=== PATIENT | female | born 1995 | race Caucasian/White ===

== ENCOUNTER 2022-04-11 03:26 | Emergency (ER) | payer MEDICAID, SELFPAY ==
[2022-04-11 03:39] VITALS: BP 107/69; PULSE 74; RESP 16; TEMP 36.4; O2SAT 98; BMI 18.6
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
== END 2022-04-11 05:00 | disposition home or self-care (01) ==
LOC: ED 04:53
PROVIDERS: Emergency Provider Family Medicine
DX: S39.012A Strain of muscle, fascia and tendon of lower back, initial encounter (principal)
CPT/HCPCS: 99283

== ENCOUNTER 2022-12-01 17:53 | Emergency (ER) | payer MEDICAID, SELFPAY ==
[2022-12-01 18:30] VITALS: BP 109/66; PULSE 97; RESP 20; TEMP 37.1; O2SAT 100; BMI 20.8
--- NOTE | 2022-12-01 19:09 | ED.GENADULT ---
HPI - General Adult General Chief complaint: Skin/Abscess/Foreign Body Stated complaint: Rash/Bruising on Legs Time Seen by Provider: 12/01/22 18:16 History of Present Illness HPI narrative: This 27-year-old female comes in reporting numerous bruising is on both legs that occurred about a week ago. She states that she does not typically bruise easily and does not report any injury event. 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 She denies having any other symptoms and states that she is not taking any new medications. She has numerous bruises on both legs but non on her upper extremities or trunk. Related Data Home Medications Medication Instructions Recorded Confirmed bupropion HCl 300 mg 24 hr tablet, 300 mg PO DAILY 04/11/22 12/01/22 extended release eucqaxswom-xioqdvjeyflef-ihmmgecu 1 cap PO Q6H PRN 04/11/22 12/01/22 50 mg-300 mg-40 mg capsule dextroamphetamine-amphetamine 20 20 mg PO DAILY 04/11/22 12/01/22 mg tablet dextroamphetamine-amphetamine ER 30 mg PO DAILY 04/11/22 12/01/22 30 mg 24hr capsule,extend release (Adderall XR) levothyroxine 50 mcg tablet 50 mcg PO DAILY 04/11/22 12/01/22 lamotrigine 200 mg tablet 200 mg PO DAILY 12/01/22 12/01/22 topiramate 200 mg tablet 200 mg PO DAILY 12/01/22 12/01/22 trazodone 50 mg tablet 50 mg PO DAILY PRN 12/01/22 12/01/22 Allergies Allergy/AdvReac Type Severity Reaction Status Date / Time amoxicillin Allergy Rash Verified 04/11/22 03:49 latex Allergy Rash Verified 04/11/22 03:49 Review of Systems Status of ROS: Reports: 10 or more systems reviewed and unremarkable except as noted in History and below Narrative: Constitutional: No fevers, no weight gain or loss. Eyes: No discharge. No vision changes. HENT: No congestion, no sore throat, no ear pain. Cardiovascular: No chest pain, no palpitations. Respiratory: No shortness of breath, no wheezes, no cough. Gastrointestinal: No abdominal pain, no vomiting, no diarrhea. Genitourinary: No dysuria, no hematuria. Musculoskeletal: Normal range of motion. Skin: No rashes, no pruritis. Bruising on her legs as described above. Neurological: No dizziness, weakness, sensory change, speech change. Endo/Heme/Allergies: No bruising or bleeding. No polydipsia. Pysch: no suicidality, no anxiety, no insomnia. All other systems reviewed and are negative. [facility] Medical History (Updated 12/01/22 @ 20:10 by Garrett Fierro MD) ADHD Anxiety Bipolar disorder Major depression Social History Smoking Status: Never smoker Do you use any of these nicotine containing products: Vaping Products Second hand tobacco smoke exposure: No How often do you have a drink containing alcohol: 2-3 times a week How many standard drinks containing alcohol do you have on a typical day: 3 or 4 How often do you have six or more drinks on one occasion: Monthly AUDIT-C Alcohol total score: 6 Non-prescribed substance use: former substance user service: No Exam Narrative: Exam Narrative: Constitutional: Well-developed, well-nourished, no acute distress. HEENT: Normocephalic, atraumatic. Neck: Normal range of motion. Nontender. Supple. Heart: Regular. No murmurs. Normal rate. Intact distal pulses. Lungs: Clear to auscultation. No chest discomfort. No wheezes, rhonchi, or rales. Abdomen: Normal bowel sounds. Nontender. No rebound tenderness. Genitalia: Deferred. Back: No midline tenderness. Normal range of motion. Extremities: Normal range of motion. 4-5 bruises on each leg both in upper leg and lower leg. Skin: Intact. No rash. Warm. No erythema or pallor. Neurologic: No altered sensation. No weakness. Alert and oriented. Psychiatric: No suicidality. No anxiety or depression. No insomnia. Nursing notes and vitals signs are reviewed. Const: Vital Signs, click to edit/add: Vital Signs - 24 hr 12/01/22 18:30 Temperature 98.8 F Pulse Rate [Pulse Oximeter] 97 Respiratory Rate 20 Blood Pressure [Ri ght Upper Arm] 109/66 Pulse Oximetry 100 Oxygen Delivery Me thod Room Air Course Vital Signs Vital signs: Initial Vital Signs Temperature 98.8 F 12/01/22 18:30 Temperature Source Temporal Artery Scan 12/01/22 18:30 Pulse Rate 97 12/01/22 18:30 Respiratory Rate 20 12/01/22 18:30 Blood Pressure 109/66 12/01/22 18:30 Blood Pressure Mean 80 12/01/22 18:30 Blood Pressure Position Sitting 12/01/22 18:30 Pulse Oximetry 100 12/01/22 18:30 Oxygen Delivery Method 12/01/22 18:30 Vital Signs Temperature 98.8 F 12/01/22 18:30 Pulse Rate 97 12/01/22 18:30 Respiratory Rate 20 12/01/22 18:30 Blood Pressure 109/66 12/01/22 18:30 Pulse Oximetry 100 12/01/22 18:30 Oxygen Delivery Method 12/01/22 18:30 Temperature 98.8 F 12/01/22 18:30 Pulse Rate 97 12/01/22 18:30 Respiratory Rate 20 12/01/22 18:30 Blood Pressure 109/66 12/01/22 18:30 Pulse Oximetry 100 12/01/22 18:30 Oxygen Delivery Method 12/01/22 18:30 Medical Decision Making MDM Narrative Medical decision making narrative: This patient comes in with bruising on both legs despite no particular injury event that she knows of to cause these findings. She feels normal otherwise. She is not on any new medications. Her vital signs are normal and her exam is otherwise normal. Lab results are acquired and show normal findings including normal hemoglobin, normal white blood cell count, normal INR and liver studies. This patient is not showing any signs of her worrisome of some underlying disease process triggering these bruises. More likely she did sustain some injury without knowing it and her body appears to be healing normally. At the time of discharge the patient appears safe for outpatient management. The treatment plan is reviewed along with written and verbal return precautions. Reasons to return and the importance of close followup were also reviewed. Lab Data Labs: Lab Results 12/01/22 12/01/22 12/01/22 Range/Units 19:24 19:24 19:24 WBC 8.56 (4.50-11.00) K/uL RBC 4.34 (4.00-5.20) m/uL Hgb 13.7 (12.0-16.0) gm/dL Hct 39.4 (33.0-51.0) % MCV 91 (80-100) fL MCH 32 (26-34) pg MCHC 35 (32-36) gm/dL RDW Coeff of Jasen 11.8 (11.5-15.5) % Plt Count 282 (140-440) K/uL Neut % (Auto) 59.0 (42.0-72.0) % Lymph % (Auto) 22.0 (20-44) % Mcdowell % (Auto) 8.4 (0.0-11.0) % Eos % (Auto) 9.9 H (0.0-7.0) % Baso % (Auto) 0.6 (0.0-3.0) % Neut # (Auto) 5.05 (1.7-7.0) K/uL Lymph # (Auto) 1.88 (0.90-2.90) K/uL Mcdowell # (Auto) 0.70 (0.00-0.90) K/UL Eos # (Auto) 0.80 H (0.00-0.50) K/uL Baso # (Auto) 0.05 (0.00-0.30) K/uL INR 1.03 (0.91-1.10) Sodium 140 (135-149) mmol/L Potassium 3.8 (3.6-5.1) mmol/L Chloride 107 (96-114) mmol/L Carbon Dioxide 22 (20-32) mmol/L BUN 14 (5-24) mg/dL Creatinine 0.6 (0.5-1.5) mg/dL Estimated Creat Clear 128.29 Estimated GFR 128 ml/min Glucose 68 (60-115) mg/dL Calcium 9.2 (8.4-10.6) mg/dL Total Bilirubin 0.4 (0.1-1.5) mg/dL Direct Bilirubin 0.2 (0.0-0.5) mg/dL AST 26 (12-35) U/L ALT 23 (4-35) U/L Alkaline Phosphatase 54 (40-150) U/L C-Reactive Protein < 0.5 L (0.5-1.0) mg/dL Total Protein 7.1 (6.0-8.3) g/dL Albumin 4.4 (3.3-5.0) g/dL Discharge Plan Discharge Clinical Impression: Multiple bruises Patient Disposition: Home, Self-Care Condition: Stable Additional Instructions: Continue current plans. Follow up with MD or return if recurrent or worsening symptoms happen. Prescriptions: No Action levothyroxine 50 mcg tablet 50 mcg PO DAILY Label Comments: TAKE ONE TABLET BY MOUTH ONE TIME DAILY dextroamphetamine-amphetamine [Adderall XR] 30 mg capsule,extended release 24hr 30 mg PO DAILY Label Comments: Take 1 Capsule by mouth every morning for 30 days. Should be given by noon. Swallow whole or open,sprinkle contents on food bupropion HCl 300 mg tablet extended release 24 hr 300 mg PO DAILY Label Comments: TAKE ONE TABLET BY MOUTH ONE TIME DAILY cesjhvjpqa-jwzbzrdmfezjz-brwu 50-300-40 mg capsule 1 cap PO Q6H PRN Label Comments: TAKE ONE CAPSULE BY MOUTH EVERY SIX HOURS NEEDED FOR MIGRAINE dextroamphetamine-amphetamine 20 mg tablet 20 mg PO DAILY lamotrigine 200 mg tablet 200 mg PO DAILY Label Comments: Take 1 Tablet by mouth one time a day. topiramate 200 mg tablet 200 mg PO DAILY Label Comments: Take 1 Tablet by mouth at bedtime. Do not crush. trazodone 50 mg tablet 50 mg PO DAILY PRN Label Comments: Take 1 Tablet by mouth at bedtime. Follow Up/Referrals: Provider,Not a Local [Primary Care Provider] - Stand Alone Forms: [employer] Info Instructions
[2022-12-01 19:30] LABS: Basophils Absolute Auto 0.05 K/uL (0.00-0.30); Basophils Percent Auto 0.6 % (0.0-3.0); Eosinophils Percent Auto 9.9 % (0.0-7.0); Hematocrit 39.4 % (33.0-51.0); Hemoglobin* 13.7 gm/dL (12.0-16.0); Immature Granulocytes Abs Auto 0.01 K/uL (0.00-0.30); Immature Granulocytes Pct Auto 0.1 %; Lymphocytes Absolute Auto 1.88 K/uL (0.90-2.90); Mean Corpuscular HGB Conc 35 gm/dL (32-36); Mean Corpuscular Hemoglobin 32 pg (26-34); Mean Corpuscular Volume 91 fL (80-100); Monocytes Percent Auto 8.4 % (0.0-11.0); Neutrophils Absolute Auto 5.05 K/uL (1.7-7.0); Platelet Count* 282 K/uL (140-440); RDW Coefficient of Variation % 11.8 % (11.5-15.5); Red Blood Count 4.34 m/uL (4.00-5.20); Slide Review Reflex No; White Blood Count* 8.56 K/uL (4.50-11.00)
[2022-12-01 19:50] LABS: Albumin* 4.4 g/dL (3.3-5.0); Chloride* 107 mmol/L (96-114); INR 1.03 (0.91-1.10); Prothrombin Time 14.1 Seconds
[2022-12-01 19:51] LABS: Potassium* 3.8 mmol/L (3.6-5.1); Sodium* 140 mmol/L (135-149)
[2022-12-01 19:53] LABS: Creatinine* 0.6 mg/dL (0.5-1.5); Est. Creatinine Clearance* 128.29; Estimated Glomerular Filt Rate 128 ml/min
[2022-12-01 19:54] LABS: Alanine Aminotransferase* 23 U/L (4-35); Alkaline Phosphatase* 54 U/L (40-150); Aspartate Amino Transferase* 26 U/L (12-35); Bilirubin Direct* 0.2 mg/dL (0.0-0.5); Bilirubin Total* 0.4 mg/dL (0.1-1.5); Blood Urea Nitrogen* 14 mg/dL (5-24); Calcium* 9.2 mg/dL (8.4-10.6); Carbon Dioxide* 22 mmol/L (20-32); Glucose* 68 mg/dL (60-115); Total Protein* 7.1 g/dL (6.0-8.3)
[2022-12-01 19:57] LABS: C Reactive Protein* < 0.5 mg/dL (0.5-1.0)
== END 2022-12-01 20:30 | disposition home or self-care (01) ==
PROVIDERS: Emergency Provider Emergency Medicine Emergency Medical Services
DX: T14.8XXA Other injury of unspecified body region, initial encounter (principal)
CPT/HCPCS: 36415; 80048; 80076; 85025; 85610; 86140; 99283; 99284

== ENCOUNTER 2022-12-04 21:10 | Emergency (ER) | payer MEDICAID, SELFPAY ==
[2022-12-04 21:19] VITALS: BP 119/74; PULSE 91; RESP 18; TEMP 37.1; O2SAT 100; BMI 20.8
--- NOTE | 2022-12-04 22:36 | ED_ITS ---
HPI - General Adult General Chief complaint: Unspecified Complaint, Adult Stated complaint: bruises/hives all over w/out known cause Time Seen by Provider: 12/04/22 21:19 History of Present Illness HPI narrative: This 27-year-old female returns to the emergency department here because of bruising on her lower extremities. She was seen by me 3 days ago because of these same bruises but comes in today because another 1 is appeared on her right buttock. She does not have any description of an injury event. She does have some pruritus and has been scratching her legs. When she was seen by me 3 days ago I did draw labs and these returned with normal results. The patient states that she has been taking Benadryl without any relief. She does not report any unilateral leg swelling or shortness of breath. She does not have any chest pain. She has not had any fevers or dysuria symptoms. Related Data Home Medications Medication Instructions Recorded Confirmed bupropion HCl 300 mg 24 hr tablet, 300 mg PO DAILY 04/11/22 12/01/22 extended release prcwwxwdza-vlvmwyezhdcrn-zekdhsrz 1 cap PO Q6H PRN 04/11/22 12/01/22 50 mg-300 mg-40 mg capsule dextroamphetamine-amphetamine 20 20 mg PO DAILY 04/11/22 12/01/22 mg tablet dextroamphetamine-amphetamine ER 30 mg PO DAILY 04/11/22 12/01/22 30 mg 24hr capsule,extend release (Adderall XR) levothyroxine 50 mcg tablet 50 mcg PO DAILY 04/11/22 12/01/22 lamotrigine 200 mg tablet 200 mg PO DAILY 12/01/22 12/01/22 topiramate 200 mg tablet 200 mg PO DAILY 12/01/22 12/01/22 trazodone 50 mg tablet 50 mg PO DAILY PRN 12/01/22 12/01/22 Allergies Allergy/AdvReac Type Severity Reaction Status Date / Time amoxicillin Allergy Rash Verified 04/11/22 03:49 latex Allergy Rash Verified 04/11/22 03:49 Review of Systems Status of ROS: Reports: 10 or more systems reviewed and unremarkable except as noted in History and below Narrative: Constitutional: No fevers, no weight gain or loss. Eyes: No discharge. No vision changes. HENT: No congestion, no sore throat, no ear pain. Cardiovascular: No chest pain, no palpitations. Respiratory: No shortness of breath, no wheezes, no cough. Gastrointestinal: No abdominal pain, no vomiting, no diarrhea. Genitourinary: No dysuria, no hematuria. Musculoskeletal: Normal range of motion. Skin: No rashes. She has bruising on various spots of her lower extremities and reports pruritus. Neurological: No dizziness, weakness, sensory change, speech change. Endo/Heme/Allergies: No bruising or bleeding. No polydipsia. Pysch: no suicidality, no anxiety, no insomnia. All other systems reviewed and are negative. [facility] Medical History (Updated 12/04/22 @ 22:41 by Garrett Fierro MD) ADHD Anxiety Bipolar disorder Major depression Social History Smoking Status: Never smoker Do you use any of these nicotine containing products: Vaping Products Second hand tobacco smoke exposure: No How often do you have a drink containing alcohol: 2-3 times a week How many standard drinks containing alcohol do you have on a typical day: 3 or 4 How often do you have six or more drinks on one occasion: Monthly AUDIT-C Alcohol total score: 6 Non-prescribed substance use: former substance user service: No Exam Narrative: Exam Narrative: Constitutional: Well-developed, well-nourished, no acute distress. HEENT: Normocephalic, atraumatic. Neck: Normal range of motion. Nontender. Supple. Heart: Regular. No murmurs. Normal rate. Intact distal pulses. Lungs: Clear to auscultation. No chest discomfort. No wheezes, rhonchi, or rales. Abdomen: Normal bowel sounds. Nontender. No rebound tenderness. Genitalia: Deferred. Back: No midline tenderness. Normal range of motion. Extremities: Normal range of motion. Scattered bruising on both lower extremities and 1 on her right buttock. Most of these are in a significant process of healing. There is no sign of new injury. Skin: Intact. No rash. Warm. No erythema or pallor. Neurologic: No altered sensation. No weakness. Alert and oriented. Psychiatric: No suicidality. No anxiety or depression. No insomnia. Nursing notes and vitals signs are reviewed. Const: Vital Signs, click to edit/add: Vital Signs - 24 hr 12/04/22 21:19 Temperature 98.8 F Pulse Rate [Left P ulse Oximeter] 91 Respiratory Rate 18 Blood Pressure [Le ft Upper Arm] 119/74 Pulse Oximetry 100 Oxygen Delivery Me thod Room Air Course Vital Signs Vital signs: Initial Vital Signs Temperature 98.8 F 12/04/22 21:19 Temperature Source Temporal Artery Scan 12/04/22 21:19 Pulse Rate 91 12/04/22 21:19 Respiratory Rate 18 12/04/22 21:19 Blood Pressure 119/74 12/04/22 21:19 Blood Pressure Mean 89 12/04/22 21:19 Blood Pressure Position Sitting 12/04/22 21:19 Pulse Oximetry 100 12/04/22 21:19 Oxygen Delivery Method 12/04/22 21:19 Vital Signs Temperature 98.8 F 12/04/22 21:19 Pulse Rate 91 12/04/22 21:19 Respiratory Rate 18 12/04/22 21:19 Blood Pressure 119/74 12/04/22 21:19 Pulse Oximetry 100 12/04/22 21:19 Oxygen Delivery Method 12/04/22 21:19 Temperature 98.8 F 12/04/22 21:19 Pulse Rate 91 12/04/22 21:19 Respiratory Rate 18 12/04/22 21:19 Blood Pressure 119/74 12/04/22 21:19 Pulse Oximetry 100 12/04/22 21:19 Oxygen Delivery Method 12/04/22 21:19 Medical Decision Making MDM Narrative Medical decision making narrative: This patient comes in again with concern about bruising on her legs. The bruises were seen by me 3 days ago and appear to be the same except for a normal progression of healing. There is a bruise on her right buttock that may be new or. The patient has some anxiety about why these are occurring. I did offer to check lab and imaging studies but she declined these. I did recommend that she use [place] for pruritus. She is agreeable with this plan. She did receive an oral dose of Benadryl 50 mg. Discharge Plan Discharge Clinical Impression: Pruritus, Multiple bruises Patient Disposition: Home, Self-Care Condition: Unchanged Additional Instructions: Take fexofenadine as directed and needed. Follow up with MD or return if worsening. Prescriptions: No Action levothyroxine 50 mcg tablet 50 mcg PO DAILY Label Comments: TAKE ONE TABLET BY MOUTH ONE TIME DAILY dextroamphetamine-amphetamine [Adderall XR] 30 mg capsule,extended release 24hr 30 mg PO DAILY Label Comments: Take 1 Capsule by mouth every morning for 30 days. Should be given by noon. Swallow whole or open,sprinkle contents on food bupropion HCl 300 mg tablet extended release 24 hr 300 mg PO DAILY Label Comments: TAKE ONE TABLET BY MOUTH ONE TIME DAILY vucfuapltn-wlgjxngjdqurb-kshh 50-300-40 mg capsule 1 cap PO Q6H PRN Label Comments: TAKE ONE CAPSULE BY MOUTH EVERY SIX HOURS NEEDED FOR MIGRAINE dextroamphetamine-amphetamine 20 mg tablet 20 mg PO DAILY lamotrigine 200 mg tablet 200 mg PO DAILY Label Comments: Take 1 Tablet by mouth one time a day. topiramate 200 mg tablet 200 mg PO DAILY Label Comments: Take 1 Tablet by mouth at bedtime. Do not crush. trazodone 50 mg tablet 50 mg PO DAILY PRN Label Comments: Take 1 Tablet by mouth at bedtime. Follow Up/Referrals: Provider,Not a Local [Primary Care Provider] - Stand Alone Forms: [facility] Info Instructions
[2022-12-04] MEDS: diphenhydrAMINE 25 MG CAPSULE 50 MG PO (22:38)
== END 2022-12-04 22:44 | disposition home or self-care (01) ==
PROVIDERS: Emergency Provider Emergency Medicine Emergency Medical Services
DX: L29.9 Pruritus, unspecified (principal); S30.0XXA Contusion of lower back and pelvis, initial encounter; S80.10XA Contusion of unspecified lower leg, initial encounter
CPT/HCPCS: 99283; 99284; A9270

== ENCOUNTER 2022-12-15 19:22 | Emergency (ER) | payer MEDICAID, SELFPAY ==
[2022-12-15] VITALS (14 sets, daily range): BP systolic 121–143; BP diastolic 74–113; PULSE 84–99; RESP 16–18; TEMP 36.7; O2SAT 99–100; BMI 20.8
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
[2022-12-15] MEDS: KETOROLAC 30 MG/ML inj IM (21:05)
== END 2022-12-15 21:10 | disposition home or self-care (01) ==
PROVIDERS: Emergency Provider Emergency Medicine
DX: M54.2 Cervicalgia (principal); V86.62XA Passenger of snowmobile injured in nontraffic accident, initial encounter
CPT/HCPCS: 70450; 72125; 94761; 96372; 99283; 99284; 99291; J1885

== ENCOUNTER 2023-12-26 04:10 | Emergency (ER) | payer MEDICAID, SELFPAY ==
[2023-12-26 04:27] VITALS: BP 124/104; PULSE 112; RESP 16; TEMP 36.5; O2SAT 95; BMI 23.3
[2023-12-26] MEDS: KETOROLAC 15 MG/ML inj IVP (04:50)
[2023-12-26] MEDS: 0.9 % SODIUM CHLORIDE 1000 ml 1,000 ML IV (04:50)
[2023-12-26] MEDS: ONDANSETRON 2 MG/ML inj 4 MG IVP (04:50)
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
[2023-12-26 05:07] LABS: Strep A DNA Probe* NOT DETECTED (Not Detectd)
[2023-12-26 05:19] LABS: PCR FLU A Negative PCR FLU A (Negative); PCR FLU B Negative PCR FLU B (Negative); PCR RSV Negative PCR RSV (Negative); SARS PCR* Negative SARS-CoV-2 (Negative)
== END 2023-12-26 06:01 | disposition home or self-care (01) ==
PROVIDERS: Emergency Provider Family Medicine
DX: K52.9 Noninfective gastroenteritis and colitis, unspecified (principal)
CPT/HCPCS: 87631; 87651; 96374; 96375; 99283; 99284; J1885; J2405; J7030

== ENCOUNTER 2024-01-06 12:58 | Outpatient (CLI) | payer MEDICAID, SELFPAY ==
--- NOTE | 2024-01-06 13:00 | CT_ITS ---
Patient: FADIA RODRIGUES Facility:?[facility] Patient ID:?[id number] Site Patient ID:?[id number]. Site :?[id number] Study:?CT-Sinus WITHOUT-01/06/2024 1:28:17 PM Ordering Physician:?DR. MORALES Final Report: INDICATION: Chronic sinusitis. TECHNIQUE: Noncontrast CT images of the paranasal sinuses. COMPARISON: None. FINDINGS: No air-fluid levels to suggest acute sinusitis. Minimal mucosal thickening in the maxillary sinuses. The ethmoid infundibula are widely patent. The frontal sinuses and frontal recesses are clear. Mild opacification of the ethmoid air cells. The sphenoid sinuses and sphenoethmoidal recesses are clear. Minimal sinusoidal nasal septal deviation. No nasal cavity masses. The mastoid air cells are clear. IMPRESSION: Mild opacification of the ethmoid air cells and minimal mucosal thickening in the maxillary sinuses. The paranasal sinuses are otherwise clear. No air-fluid levels to suggest acute sinusitis. Please note that all CT scans at this facility use dose modulation, iterative reconstruction, and/or weight-based dosing when appropriate to reduce radiation dose to as low as reasonably achievable. Dictated by Alvin Pierre MD @ 01/06/2024 3:00:52 PM Signed by:?Alvin Pierre MD @01/06/2024 3:00:52 PM (Electronic Signature)
== END 2024-01-06 12:59 | disposition home or self-care (01) ==
LOC: CT 13:00
PROVIDERS: Visit Provider Otolaryngology
DX: J32.9 Chronic sinusitis, unspecified (principal); J32.0 Chronic maxillary sinusitis
CPT/HCPCS: 70486

== ENCOUNTER 2024-01-17 08:55 | Day surgery (SDC) | payer MEDICAID, SELFPAY ==
[2024-01-17] VITALS (13 sets, daily range): BP systolic 123–143; BP diastolic 80–104; PULSE 58–113; RESP 16–18; TEMP 36.2–37.1; O2SAT 96–100; BMI 23.4
[2024-01-17 09:14] LABS: Ur HCG Qualitative* Negative (Negative)
[2024-01-17] MEDS: LACTATED RINGERS 1000 ML 1,000 ML 100 ML IV (09:52)
[2024-01-17] MEDS: SODIUM CHLORIDE 0.9 % (FLUSH) 10 ML SYRINGE IVF (09:52)
[2024-01-17] MEDS: OXYMETAZOLINE 0.05% NASAL SPRAY 2 SPRAY NOSTRIL-B (10:20)
--- NOTE | 2024-01-17 10:23 | SUR.PREOP ---
Pt requesting jewelry stay in for surgery. Pt educated on complications. Pt verbalized understanding, reveiwed form and signed. Dr. Michaels aware.
[2024-01-17] MEDS: BUPIVACAINE 0.5%/EPINEPHRINE 0.9 MG (30.9 ML) INJECTION (10:30)
[2024-01-17] MEDS: AYR SALINE NASAL GEL 1 APPLIC NOSTRIL-B (11:15)
[2024-01-17] MEDS: COCAINE HCL 4 % 4 ML SOLUTION NOSTRIL-B (11:16)
[2024-01-17] MEDS: METOCLOPRAMIDE HCL 5 MG/ML INJ 10 MG IVP (11:24)
[2024-01-17] MEDS: MUPIROCIN 1 GM PACKET 1 APPLIC TOPICAL (11:25)
--- NOTE | 2024-01-17 11:51 | W.ANESCHARGE ---
Anesthesia Charges Start Date/Time Anesthesia Start Date: 01/17/24 Anesthesia Start Time: 10:53 Stop Date/Time Anesthesia Stop Date: 01/17/24 Anesthesia Stop Time: 11:49
[2024-01-17] MEDS: HYDROmorphone 0.5 mg/0.5 ml inj IVP ×2 (11:58→12:09)
--- NOTE | 2024-01-17 12:15 | P.ENTPROC_ITS ---
Procedure Note Date of procedure: 01/17/24 Procedure: Preoperative diagnosis recurrent strep tonsillitis, guttate psoriasis, nasal obstruction, deviated septum, bilateral middle turbinate fidelina bullosa, nasal headache Postoperative diagnosis same Procedure tonsillectomy, nasal septoplasty, endoscopic partial resection bilateral middle turbinate fidelina bullosa, endoscopic partial resection bilateral inferior turbinates Under general trach anesthesia patient was prepped and draped usual fashion. The nose was decongested with pledgets. McIvor mouth gag was inserted the tongue retracted forward. There was no adenoid pad noted. The right and left tonsil removed with a combination of needlepoint and bipolar cautery. Meticulous hemostasis was achieved with suction cautery. After regarding an gloving attention was turned to the nose. The nose was injected. A right hemitransfixion incision was made left anterior and posterior tunnels were created. Incision was made through the cartilage with a [place] dissector anterior to the bone and then a right posterior tunnel created. The posterior deflected portions of septal bone were resected and a large piece was trimmed and returned to the posterior intraseptal space. A stab incision was made in the anterior of the right inferior turbinate a tunnel created with a [place] dissector. The fidelina bone was outfractured and a conservative anterior submucous resection performed. The Coblation was used for hemostasis and to cauterize along the inferior 10%. This was repeated on the left side in identical fashion. Remainder procedure was done with the available assistance of a 0 degree endoscope. The right middle turbinate fidelina was infractured at the hollow portion and the turbinate crushed with the [place] forceps. This was repeated on the left side in identical fashion. The hemitransfixion was closed with 2 4- 0 chromic sutures and silastic stents secured with 3-0 nylon. A Merocel pack coated in Bactroban was placed in each side of the nose. On the left side I also placed a positive pack or dissolvable pack. Patient procedure well was taken recovery in satisfactory condition blood loss during procedure was less than 20 mL. Surgeon: René Michaels MD
[2024-01-17] MEDS: ACETAMINOPHEN 160 MG/5 ML CUP 320 MG PO (12:40)
[2024-01-17] MEDS: IBUPROFEN 100 MG/5 ML SUSP 200 MG PO (13:29)
== END 2024-01-17 13:49 | disposition home or self-care (01) ==
LOC: OR 08:56
PROVIDERS: Nurse Anesthetist, Certified Registered; Visit Provider Otolaryngology
PROC: (CPT 31231; principal; 2024-01-17 10:45)
DX: J03.01 Acute recurrent streptococcal tonsillitis (principal); J34.2 Deviated nasal septum; R51.9 Headache, unspecified; L40.4 Guttate psoriasis; J34.89 Other specified disorders of nose and nasal sinuses
CPT/HCPCS: 42821; 30520; 30140; 31240; 00170; 81025; 88304; A9270; J0330; J1100; J1170; J2250; J2405; J2704; J2765; J3010; J7120

== ENCOUNTER 2024-01-19 18:27 | Emergency (ER) | payer MEDICAID, SELFPAY ==
[2024-01-19 18:32] VITALS: BP 128/79; PULSE 84; RESP 15; TEMP 37.1; O2SAT 97; BMI 24.1
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
[2024-01-19] MEDS: ONDANSETRON 2 MG/ML inj 4 MG IVP (19:58)
[2024-01-19] MEDS: 0.9 % SODIUM CHLORIDE 1000 ml 1,000 ML IV ×2 (19:59→21:05)
[2024-01-19] MEDS: MORPHINE 4 MG/ML INJ IVP (19:59)
[2024-01-19 20:04] VITALS: O2SAT 97
[2024-01-19] MEDS: dexAMETHasone 10 MG/ML inj IVP (20:04)
[2024-01-19 20:06] LABS: Basophils Absolute Auto 0.03 K/uL (0.00-0.30); Basophils Percent Auto 0.3 % (0.0-3.0); Eosinophils Absolute Auto 0.16 K/uL (0.00-0.50); Eosinophils Percent Auto 1.6 % (0.0-7.0); Hematocrit 38.8 % (33.0-51.0); Hemoglobin* 13.1 gm/dL (12.0-16.0); Immature Granulocytes Abs Auto 0.01 K/uL (0.00-0.30); Immature Granulocytes Pct Auto 0.1 %; Lymphocytes Percent Auto 12.8 % (20-44); Mean Corpuscular HGB Conc 34 gm/dL (32-36); Mean Corpuscular Hemoglobin 32 pg (26-34); Mean Corpuscular Volume 94 fL (80-100); Monocytes Percent Auto 8.7 % (0.0-11.0); Neutrophils Percent Auto 76.5 % (42.0-72.0); Platelet Count* 268 K/uL (140-440); RDW Coefficient of Variation % 11.8 % (11.5-15.5); Red Blood Count 4.12 m/uL (4.00-5.20); White Blood Count* 9.88 K/uL (4.50-11.00)
[2024-01-19 20:09] LABS: Slide Review Reflex No
[2024-01-19 20:19] LABS: Chloride* 102 mmol/L (96-114); Potassium* 3.9 mmol/L (3.6-5.1); Sodium* 136 mmol/L (135-149)
[2024-01-19 20:22] LABS: Anion Gap 8 mEq/L (7-15); Blood Urea Nitrogen* 8 mg/dL (5-24); Calcium* 9.3 mg/dL (8.4-10.6); Carbon Dioxide* 26 mmol/L (20-32); Creatinine* 0.5 mg/dL (0.5-1.5); Est. Creatinine Clearance* 153.43; Estimated Glomerular Filt Rate 133 ml/min; Glucose* 109 mg/dL (60-115)
[2024-01-19 20:27] LABS: Ethanol* < 0.01 % (0.01-0.03)
--- OUTSIDE RECORDS SUMMARY | 2024-01-19 20:53 | XMS_ITS | Encounter Summary ---
Author Name Unknown Organization [facility] [employer] [facility] Address [address] [address] Phone Care Team Providers Care Dry Cleaning Supervisor Name Role Phone Unavailable Primary Care Provider Unavailabl e Reason for Visit * Reason Onset Date Comments Refill Request 12/13/2023 Encounter Details Date Type Department Care Team (Late st Contact Info) Description 12/13/2023 Refill [facility] [address] [place] [phone] Lorelei Cage RN Refill Request Social History Tobacco Use Types Packs/Day Years Used Date Smoking Tobacco: Passive Smo ke Exposure - Never Smoker Smokeless Tobacco: Never Alcohol Use Standard Drinks/Week Comments Yes 0 (1 standard drink = 0.6 oz pur e alcohol) PHQ-2 Answer Date Recorded PHQ-2 Total 0 06/11/2023 Education Answer Date Recorded What is the highest level of school you have completed or the highest degree you have received? Associate degree: academic program 08/10/2021 Sex and Gender Information Value Date Recorded Sex Assigned at Not on file Gender Identity Not on file Sexual Orientation Not on file Job Start Date Occupation Industry Not on file Not on file Not on file documented as of this encounter Functional Status Functional Status Response Date of Assess ment Patient's Vision Adequate to Safely Complete Daily Activities Yes 07/09/2020 Patient's Memory Adequate to Safely Complete Daily Activities Yes 07/09/2020 Cognitive Status Response Date of Assessm ent Patient's Judgment Adequate to Safely Complete Daily Activities Yes 07/09/2020 documented as of this encounter Ordered Prescriptions Prescription Sig Dispensed Refills Start Date End Da te Adderall XR 30 MG 24 hour capsuleIndications:Atten tion deficit hyperactivity disorder (ADHD), unspecified ADHD type Take 1 Capsule by mouth every morning for 30 days. Should be given by noon. Swallow whole or open,sprinkle contents on food 30 Capsule 0 12/16/2023 12/23/2023 amphetamine-dextroamphet amine (Adderall) 20 MG tabletIndications:Attent ion deficit hyperactivity disorder (ADHD), unspecified ADHD type Take 1 Tablet by mouth one time a day at noon. To avoid insomnia, last daily dose should be taken no less than 6 hours before bed. 30 Tablet 0 12/16/2023 12/23/2023 documented in this encounter Miscellaneous Notes * Telephone Encounter - Lorelei Cage RN - 12/16/2023 3:26 PM CST Printed scripts were mailed to the patient's home address by MARIJA Walters. RT SPECIALIST * Telephone Encounter - Lorelei Cage RN - 12/13/2023 4:56 PM CST Medication refill received via fax. Medication found on medication list and pended. Pharmacy selected: Yes Additional comments from pharmacy: With e-scripts down, paper copy will need to be provided to patient and/or mailed to Pharmacy. Routing to nursing for review. 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 Last Date Dispensed: 11/16/23 on both Quantity: #30 on both Days Supply: #30 on both Last Med Check: 06/11/23 DOA testin06/11/23 RT SPECIALIST documented in this encounter Plan of Treatment Not on file documented as of this encounter Visit Diagnoses Diagnosis Attention deficit hyperactivity disorder (ADHD), unspecified ADHD type documented in this encounter Discontinued Medications Medication Sig Discontinue Reason Start Date End Da te Adderall XR 30 MG 24 hour capsuleIndications:Attent ion deficit hyperactivity disorder (ADHD), unspecified ADHD type Take 1 Capsule by mouth every morning for 30 days. Should be given by noon. Swallow whole or open,sprinkle contents on food Reorder 09/11/2023 12/13/2023 amphetamine-dextroampheta mine (Adderall) 20 MG tabletIndications:Attenti on deficit hyperactivity disorder (ADHD), unspecified ADHD type Take 1 Tablet by mouth one time a day at noon. To avoid insomnia, last daily dose should be taken no less than 6 hours before bed. Reorder 11/10/2023 12/13/2023 documented as of this encounter
--- OUTSIDE RECORDS SUMMARY | 2024-01-19 20:53 | XMS_ITS | Encounter Summary ---
Author Name Unknown Organization [facility] [employer] [facility] Address [address] [address] Phone Care Team Providers Care Legal Activity Adjudicator Name Role Phone Unavailable Primary Care Provider Unavailabl e Reason for Visit * Reason Comments Refill Request Encounter Details Date Type Department Care Team (Late st Contact Info) Description 12/03/2023 Refill [facility] [address] [place] [phone] Elissa Waggoner, DO [address] [place], [place] [phone] Refill Request Social History Tobacco Use Types [...] Dispensed Refills Start Date End Da te butalbital-acetaminop hen-caffeine (Fioricet) 50-300-40 MG oral capsuleIndications:Fela reed without status migrainosus, not intractable, unspecified migraine type TAKE ONE CAPSULE BY MOUTHEVERY SIX HOURS NEEDEDFOR MIGRAINE. LIMIT ACETAMINOPHEN TO 4000 MG PER DAY FROM ALL SOURCES 30 Capsule 0 12/04/2023 12/12/2023 documented in this encounter Miscellaneous Notes * Telephone Encounter - Hussein Mackey RN - 12/05/2023 5:06 PM CST Called to notify patient of information and what pharmacy reviewed with triage nurse. No answer. Left message for patient to please call back. Clinic phone number provided. Thank you. STOS REMOVAL WORKER * Telephone Encounter - Hussein Mackey RN - 12/05/2023 5:00 PM CST Called pharmacy and spoke with Pharmacist. Issue is that to use the [employer] Discount Card for this medication it has to be denied through her insurance. Once that happens she is able to use the discount card and get the medication. Becuase it is a controlled substance if she pays out of pocket for the medication she will lose herinsurance. They are not able to do anything at this time due to an issue with their system that is not allowing them to communicate electronically (possible hack). Nothing clinic can do at this time and pharmacy explained this to the patient. Pharmacy also instructed patient that if patient can't wait for the process to be resolved Emergency Department is her other option and patient is aware. No further questions. Thank you. STOS REMOVAL WORKER * Telephone Encounter - Hussein Mackey RN - 12/05/2023 4:22 PM CST Patient called clinic and asking for clinic to deny medication so she can pay out of pocket. Explained that patient should be able to contact pharmacy and pay out of pocket if she doesn't want to useher insurance. Per patient pharmacy told her the clinic needs to contact them to deny medication so she can pay out of pocket. Called pharmacy and placed on hold and call ended. Called pharmacy back and placed on hold again and call ended. STOS REMOVAL WORKER * Telephone Encounter - Destiney Son - 12/05/2023 1:47 PM CST Patient calling regarding inquiring on status of prescription. Patient stated that the script needsto be denied in order for her insurance to cover it, which does not make sense to rewriter. Patient is currently experiencing the worse migraine of my life. Routing to nursing for review. STOS REMOVAL WORKER * Telephone Encounter - Hussein Mackey RN - 12/05/2023 11:12 AM ASBESTOS REMOVAL WORKER Called pharmacy to review request for order due to system issue with receiving Rx that was sent on 12/04/23 for Fioricet. Called and provided information for pharmacy. Confirmed order. No further questions. Thank you. STOS REMOVAL WORKER * Telephone Encounter - Destiney Son - 12/05/2023 9:58 AM CST Pharmacy states that their system has been down and requesting a return call with verbal rx becausepatient is in pharmacy and upset that she cannot receive the script. Routing to nursing for review. 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 [employer] Last Date Dispensed:08/21/23 Quantity:30 Days Supply:7 Refills Remainin Last Med Check:06/11/23 upcoming 12/23/23 DOA testin06/11/23 STOS REMOVAL WORKER documented in this encounter Plan of Treatment Not on file documented as of this encounter Visit Diagnoses Diagnosis Migraine without status migrainosus, not intractable, unspecified migraine type documented in this encounter Discontinued Medications Medication Sig Discontinue Reason Start Date End Da te butalbital-acetaminop hen-caffeine (Fioricet) 50-300-40 MG oral capsuleIndications:Mi graine without status migrainosus, not intractable, unspecified migraine type Limit acetaminophen to 4000 mg per day from all sources. 06/11/2023 12/04/2023 documented as of this encounter
--- OUTSIDE RECORDS SUMMARY | 2024-01-19 20:53 | XMS_ITS | Encounter Summary ---
Author Name Unknown Organization [facility] [employer] 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 Name Role Phone Elissa Waggoner DO Primary Care Provider [phone] Elissa Waggoner DO Primary Care Provider + [phone] Reason for Visit * Reason Comments Refill Request Encounter Details Date Type Department Care Team (Late st Contact Info) Description 05/14/2023 Refill [facility] [address] [place] [phone] Elissa Waggoner, DO [address] [place] [address] Refill Request Social History Tobacco Use Types Packs/Day Years Used Date Smoking Tobacco: Passive Smo ke Exposure - Never Smoker Smokeless Tobacco: Never Alcohol Use Standard Drinks/Week Comments Yes 0 (1 standard drink = 0.6 oz pur e alcohol) PHQ-2 Answer Date Recorded PHQ-2 Total 0 10/29/2022 Education Answer Date Recorded What is the [...] Dispensed Refills Start Date End Da te amphetamine-dextroamphet amine XR (Adderall XR) 30 MG 24 hour capsuleIndications:Atten tion deficit hyperactivity disorder (ADHD), combined type Take 1 Capsule by mouth every morning. Should be given by noon. Swallow whole or open,sprinkle contents on food 30 Capsule 0 05/16/2023 06/11/2023 amphetamine-dextroamphet amine (Adderall) 20 MG tabletIndications:Attent ion deficit hyperactivity disorder (ADHD), combined type Take 1 Tablet by mouth every afternoon. To avoid insomnia, last daily dose should be taken no less than 6 hours before bed. 30 Tablet 0 05/16/2023 06/11/2023 documented in this encounter Miscellaneous Notes * Telephone Encounter - Tosha Adkins RN - 05/16/2023 12:[address] Waggoner, She is completely out and requesting refill today please medication request:Adderall 20 mg and 30 mg Er Dx:ADD Per [place] P[facility] PSYCHOLOGIST Last Date Dispensed:04/11/23 for both Quantity:30 (30 mg er) 30 (20 mg) Days Supply:30 Refills Remainin 0 Last Med Check:10/29/22 med check called pt and transferred to schedulers to set up [facility] physical. DOA testin10/30/22 documented in this encounter Plan of Treatment Not on file documented as of this encounter Visit Diagnoses Diagnosis Attention deficit hyperactivity disorder (ADHD), combined type documented in this encounter Discontinued Medications Medication Sig Discontinue Reason Start Date End Da te amphetamine-dextroampheta mine XR (Adderall XR) 30 MG 24 hour capsuleIndications:Attent ion deficit hyperactivity disorder (ADHD), combined type Take 1 Capsule by mouth every morning. Should be given by noon. Swallow whole or open,sprinkle contents on food 04/11/2023 05/16/2023 amphetamine-dextroampheta mine (Adderall) 20 MG tabletIndications:Attenti on deficit hyperactivity disorder (ADHD), combined type Take 1 Tablet by mouth every afternoon. To avoid insomnia, last daily dose should be taken no less than 6 hours before bed. 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
--- OUTSIDE RECORDS SUMMARY | 2024-01-19 20:53 | XMS_ITS | Clinical Summary ---
Author Name Unknown Organization [facility] [employer] [facility] Address [address] [address] Phone Care Team Providers Care Database Development Project Manager Name Role Phone EdilsonElissa Sylvain DO Primary Care Provider [phone] Allergies Active Allergy Reactions Criticality Noted Date Comments Amoxicillin Unknown 01/07/2019 Category: Allergy; Annotation - 07Jan2019: Rash Diagnostic X-Ray Materials Unknown 1997 PN: YAS CM1: CONTRAST- nka Reaction : Gluten Meal Abdominal pain Low 04/06/2022 Latex RASH Medium 07/09/2020 Milk Protein Abdominal pain Low 04/06/2022 Medications Medication Sig Dispensed Refills Start Date End Date Status lamoTRIgine (LaMICtal) 200 MG tabletIndications:A nxiety Take 1 Tablet by mouth one time a day. 90 Tablet 3 10/29/2022 Active pantoprazole (Protonix) 20 MG delayed-release tablet Take 20 mg by mouth one time a day. 0 02/06/2022 Active ondansetron (Zofran ODT) 4 MG disintegrating tablet Take 4 mg by mouth. 0 03/29/2022 Active cetirizine (ZyrTEC) 10 MG tablet Take 1 tablet by mouth every day As Needed for allergy symptoms* 0 11/09/2023 Active triamcinolone acetonide (Kenalog) 0.1 % ointment Apply topically to affected areas on arms, legs, trunk and back twice daily for 4 weeks.* 0 11/19/2023 Active buPROPion XL (Wellbutrin XL) 300 MG 24 hour extended release tabletIndications:A ttention deficit hyperactivity disorder (ADHD), combined type,Anxiety Take 1 Tablet by mouth one time a day. 90 Tablet 3 12/23/2023 Active topiramate (Topamax) 200 MG tabletIndications:M igraine without aura and without status migrainosus, not intractable Take 1 Tablet by mouth at bedtime. Do not crush. 90 Tablet 3 12/23/2023 Active traZODone (Desyrel) 50 MG tabletIndications:P rimary insomnia Take 1 Tablet by mouth at bedtime. 90 Tablet 3 12/23/2023 Active LORazepam (Ativan) 0.5 MG tabletIndications:A nxiety Take 1 Tablet by mouth two times a day as needed for Anxiety. 10 Tablet 1 12/23/2023 Active butalbital-acetamin ophen-caffeine (Fioricet, Esgic) 50-325-40 MG oral tabletIndications:M igraine without aura and without status migrainosus, not intractable Take 1 Tablet by mouth every six hours as needed for Pain. Acetaminophen should be limited to 4000 mg per day. 30 Tablet 5 12/23/2023 Active amphetamine-dextroa mphetamine (Adderall) 20 MG tabletIndications:A ttention deficit hyperactivity disorder (ADHD), combined type Take 1 Tablet by mouth every morning. To avoid insomnia, last daily dose should be taken no less than 6 hours before bed. 30 Tablet 0 12/23/2023 Active Adderall XR 30 MG 24 hour capsuleIndications: Attention deficit hyperactivity disorder (ADHD), combined type Take 1 Capsule by mouth every morning. Should be given by noon. Swallow whole or open,sprinkle contents on food 30 Capsule 0 12/23/2023 Active Adderall XR 30 MG 24 hour capsuleIndications: Attention deficit hyperactivity disorder (ADHD), combined type Take 1 Capsule by mouth every morning. Should be given by noon. Swallow whole or open,sprinkle contents on food 30 Capsule 0 01/22/2024 Active Adderall XR 30 MG 24 hour capsuleIndications: Attention deficit hyperactivity disorder (ADHD), combined type Take 1 Capsule by mouth every morning. Should be given by noon. Swallow whole or open,sprinkle contents on food 30 Capsule 0 02/21/2024 Active amphetamine-dextroa mphetamine (Adderall) 20 MG tabletIndications:A ttention deficit hyperactivity disorder (ADHD), combined type Take 1 Tablet by mouth every morning. To avoid insomnia, last daily dose should be taken no less than 6 hours before bed. 30 Tablet 0 01/22/2024 Active amphetamine-dextroa mphetamine (Adderall) 20 MG tabletIndications:A ttention deficit hyperactivity disorder (ADHD), combined type Take 1 Tablet by mouth every morning. To avoid insomnia, last daily dose should be taken no less than 6 hours before bed. 30 Tablet 0 02/21/2024 Active levothyroxine (Synthroid) 75 MCG tabletIndications:H ypothyroidism, unspecified type Take 1 Tablet by mouth one time a day. 90 Tablet 3 12/24/2023 Active Nalmefene HCl (Opvee) 2.7 MG/0.1ML Solution Place 4 mg into one nostril one time for 1 dose. 1 Each 3 12/23/2023 4 Active Problems Problem Noted Date Diagnosed Date Preop examination 12/31/2023 Last Assessment & Plan: Images from the original note were not included. After note addendum. Struggling with recurrently tonsillitis/pharyngitis as mentioned above. After ENT consultation, plan to proceed with tonsillectomy. Helga is medically appropriate to proceed. The Pre-Op Tool Recommendations Low Risk Procedure Cardiac History No history of coronary artery disease Labs No routine labs indicated EKG Not indicated Stress Testing Not indicated * Testing recommendations are intended to assist, but not direct, clinical decisions. Take your other medications as usual prior to the procedure Hold vitamins and/or supplements for 1 week prior to the procedure Okay to take Acetaminophen (Tylenol) up until the procedure Hold / avoid NSAIDs (e.g. ibuprofen, naproxen) prior to procedure: 2 days for ibuprofen (Advil) and 4 days for naproxen (Aleve). Hold your Adderall on day of procedure. * Medication recommendations are not intended to be exhaustive; they are limited to common medications that are potentially dangerous if incorrectly managed Labs * Data supports elimination of ? routine? laboratory testing in favor of focused, ? indicated? testing based on medical co-morbidities. A 2008 study randomized 1061 patients undergoing ambulatory, non-cataract surgery to routine or to indicated testing. Perioperative adverse events were similar (Anesthesia & Analgesia 2009;108:467- 75; Anesthesiol. Clin. 2016 Mar;34(1):43-58). EKG * The ACC/AHA recommends against obtaining routine EKGs in patients undergoing low risk surgeries, a class IIa recommendation (JACC. 2014;64(21);e1-76). Session ID: [id number] Endnotes and bibliography available upon request: [email or web address] Weight gain 12/23/2023 Last Assessment & Plan: Uncertain etiology, 20 lbs from last visit. Several possible culprit medications. Checking thyroid function and additional labs today. Menses regular. Not recently on steroids or hormones. Recurrent streptococcal pharyngitis 12/23/2023 Last Assessment & Plan: Upcoming consultation with ENT. Strongly desiring tonsillectomy. Family planning advice 11/01/2022 Last Assessment & Plan: You are interested in pursuing a family soon but not currently trying to conceive. You are on several of your medications which would need to be stopped and/or closely monitored during . This may be best done by psychiatrist and/or maternal medicine (MFM) specialist as I would consider you a high risk . You have been in contact with MFM by report. Osteopenia 04/17/2022 Lactose intolerance 04/06/2022 Gluten intolerance 04/06/2022 Last Assessment & Plan: Requested labs ordered today Vapes nicotine containing substance 01/07/2022 Last Assessment & Plan: Advised cessation, especially prior to Throat clearing 01/01/2022 Last Assessment & Plan: This maybe from post nasal drip or reflux. Trial of PPI. Hypothalamic hypogonadism 12/26/2021 Last Assessment & Plan: This is being managed by gynecology. You are now having more regular menstruation after going over a year without menses. Secondary amenorrhea 12/26/2021 Anxiety 08/07/2021 Last Assessment & Plan: You believe you are NOT currently taking lamotrigine. Checking level today. Up and down days but feel you are doing ok. Current mild episode of facundo r depressive disorder without prior episode 08/28/2017 Overview: Previously followed by mental health provider. Last Assessment & Plan: Not currently on lamotrigine. Continues bupropion XL Previously established with therapist Alopecia areata, unspecified 11/08/2016 Hypothyroidism, unspecified type 05/03/2016 Last Assessment & Plan: Frustrated with recent weight gain. Checking thyroid function today. Will be in touch if dose change of levothyroxine is advised IBS (irritable bowel syndrome) 02/22/2016 Urticaria, chronic 01/31/2016 Overview: Impression - [id number]: willl tx with medrol dose dash to see results. Is to have an OV soon and can discuss results then. Acne vulgaris 01/19/2016 Overview: Impression - [id number]: -currently taking minocycline and using finacea prn - Refill finacea foam; Impression - [id number]: off minocin to see if this is causing her hair loss; Impression - [id number]: derm to see; Impression - [id number]: will tx with topical benzyl peroxie with clind and oral minocin. FU in one month Allergic conjunctivitis 01/19/2016 Overview: Impression - [id number]: pataday ordered Migraine 01/19/2016 Overview: Replax caused lightheadedness Tried sumatriptan in past Last Assessment & Plan: Stable with topiramate daily and as needed Fioricet. Chronic constipation 12/26/2015 Overview: Impression - 26Dec2015: Would like to involve GI - may benefit from linzess-type medication. For now, may continue colace BID. Concern regarding impact of AN on this issue. Insomnia 12/26/2015 Last Assessment & Plan: Managed with trazodone for sleep WPW (Rbrxg-Iomxuckap-Rzagt syndrome) 04/14/2015 Orthostasis 10/08/2014 ADHD 09/27/2014 Overview: Previously managed by mental health provider Last Assessment & Plan: You are doing well on current regimen of generic Adderall XR 30 mg in morning and short acting 20 mg later in day. You have a clear improvement on days you use it. Your employer has noted as well. Scripts renewed. - random UDS today. Stimulant agreement completed today. - scripts updated for three months, may call in for an additional three months. Follow-up at least every six months for medication check. Resolved Problems Problem Noted Date Diagnosed Date Resolved Date Periumbilical abdominal pain 01/01/2022 06/11/2023 Last Assessment & Plan: Resolved after eliminating dairy and gluten from diet. Hypoestrogenism 12/26/2021 06/11/2023 Anorexia nervosa, unspecified 12/26/2015 06/11/2023 Alcohol abuse, in remission 09/27/2014 06/11/2023 Encounters Date Type Department Care Team Description 12/30/2023 Telephone [facility] [address] [place] [phone] Elissa Waggoner DO Pre-Op 12/23/2023 1:30 PM CDT Office Visit [facility] [address] [place] [phone] Elissa Waggoner, DO Attention deficit hyperactivity disorder (ADHD), combined type (Primary Dx); Migraine without aura and without status migrainosus, not intractable; Hypothyroidism, unspecified type; Anxiety; Weight gain; Primary insomnia; Screening for cardiovascular condition; Recurrent streptococcal pharyngitis; Current mild episode of major depressive disorder without prior episode (HCC); Preop examination 12/23/2023 Telephone [facility] [address] [place] [phone] Helga Magallanes Medication Question; Pharmacy Clarification (Adderall Orders) 12/23/2023 Travel 12/13/2023 Refill [facility] [address] [place] [phone] Lorelei Cage, RN Refill Request 12/10/2023 Telephone [facility] [address] [place] [phone] Imer Hoffman, RAFA Medication Problem (Patient requesting Capsules. Requires PA to be denied prior to patient being able to pay out of pocket due to Insurance. ) 12/03/2023 Refill [facility] [address] [place] [phone] Elissa Waggoner, DO Refill Request from Last 3 Months Immunizations Name Administration Dates Next Due DTaP <7 years 09/23/2002, 9,04/01/1998,1997,1997 Hepatitis A, Ped/Adolescent 2 dose 06/01/2008, Hepatitis B NOS 07/01/1998,01/21/1998,1997 Hib (Nos) 04/06/1999, 8,01/21/1998,1997 Human Papilloma Virus 9 03/15/2020,07/01/2017 Human Papilloma Virus Quadrivalent 09/29/2014, IPV 09/23/2002, 8,01/21/1998,1997 Influenza (3+ Yrs) NPF-Multi Dose Vial (Flu Clinic) 09/29/2014 Influenza Live Trivalent Intranasal 07/15,10/11/2010,05/20/2009,2007,08/01/2007,11/06/2006 Influenza Quad Preservative Free 014,08/02/2011,10/11/2010,2008,07/29/2008,08/01/2007,11/06/2006 Influenza Seasonal Inj A,B 11/09/2002,09/23/2002 Influenza Unspecified Formulation 09/29/2014,,09/23/2002 MMR 09/23/2002,10/03/1999 Pneumococcal Conjugate, (Prevnar)7-valent 08/20/2000 Polio Unspecified Formulation 04/01/1998, 998,1997 Tdap (7 years and older) 03/15/2020,03/23/2014 Varicella (Varivax) 06/01/2008,10/21/1998 Surgical History Surgery Date Site/Laterality Comments FOOT SURGERY Description: shattered rigth calaneous WISDOM TOOTH EXTRACTION SURGERY/PROCEDURE Problem: History of Electronic Analysis Of Implantable Loop Recorder Medical History Medical History Date Comments COVID-19 virus infection 04/2020 Alcohol abuse, in remission 09/27/2014 Anorexia nervosa, unspecified 12/26/2015 Family History Medical History Relation Comments Asthma Father Cancer Father Liver cancer, dx at age 49. Diabetes Father Depression Mother Suicide Neuro Disease Mother migraine headach es Relation Status Comments Father Mother Social History Tobacco Use Types Packs/Day Years Used Date Smoking Tobacco: Passive Smo ke Exposure - Never Smoker Smokeless Tobacco: Never Alcohol Use Standard Drinks/Week Comments Yes 0 (1 standard drink = 0.6 oz pur e alcohol) PHQ-2 Answer Date Recorded PHQ-2 Total 0 12/23/2023 Education Answer Date Recorded What is the highest level of school you have completed or the highest degree you have received? Associate degree: academic program 08/10/2021 Sex and Gender Information Value Date Recorded Sex Assigned at Not on file Gender Identity Not on file Sexual Orientation Not on file Job Start Date Occupation Industry Not on file Not on file Not on file Obstetrics History Para Term AB IAB SAB Ectopic Molar Multiple Living Live Births 0 0 0 0 0 0 0 0 0 0 0 0 Last Filed Vital Signs Vital Sign Reading Time Taken Comments Blood Pressure 112/60 12/23/2023 2:01 PM CDT Pulse 80 12/23/2023 2:01 PM CDT Temperature 36.4 ??C (97.5 ??F) 12/23/2023 2:01 PM CD T Respiratory Rate 16 07/09/2020 7:22 AM CDT Oxygen Saturation 100% 07/09/2020 7:22 AM CDT Inhaled Oxygen Concentration - - Weight 64 kg (141 lb) 12/23/2023 2:01 PM CDT Height 165.1 cm (5' 5) 10/29/2022 4:14 PM FIELD AGENT Body Mass Index 23.46 10/29/2022 4:14 PM FIELD AGENT Plan of Treatment Health Maintenance Due Date Last Done Comments Cervical Cancer Screening 1997 Last pap w/ HPV Testing 1997 Last pap w/o HPV Testing 1997 COVID-19 Vaccine (#1) 03/29/1998 Influenza Vaccine Seasonal (Standing Order) (#1) 2023 09/29/2014, 09/29/2014, 09/29/2014, Additional history exists TETANUS (Standing Order) 03/15/2030 020, 03/23/2014, 09/23/2002, Additional history exists Hepatitis B Vaccine (Standing Order) Completed 07/01/1998, 01/21/1998, 1997 Pneumococcal/PCV20 Vaccine: Pediatrics (2-5 yrs) and At-Risk Patients (6-64 yrs) (Standing Order) Aged Out 08/20/2000 No longer eligible based on patient's age to complete this topic HPV Vaccine (Standing Order) Completed 03/15/2020, 07/01/2017, 09/29/2014, Additional history exists PERTUSSIS (Standing Order) Completed 03/15, 03/23/2014, 09/23/2002, Additional history exists Procedures Procedure Name Priority Date/Time Associated Diagnosis Comments URINE DRUG SCREEN Routine 12/23/2023 2:0 7 PM CDT Attention deficit hyperactivity disorder (ADHD), combined type URINALYSIS, REFLEX TO MICROSCOPIC Routine 12/23/2023 2:07 PM CDT Weight gain LIPID PROFILE Routine 12/23/2023 2:07 PM CDT Screening for cardiovascular condition THYROID SCREEN WITH REFLEX Routine 12/23/2023 2:07 PM CDT Hypothyroidism, unspecified type Weight gain COMPREHENSIVE METABOLIC PANEL Routine 12/23/2023 2:07 PM CDT Weight gain HEMOGRAM Routine 12/23/2023 2:07 PM CDT Hypothyroidism, unspecified type Weight gain LAMOTRIGINE Routine 12/23/2023 2:07 PM CDT Anxiety from Last 3 Months Results * URINALYSIS, REFLEX TO MICROSCOPIC (12/23/2023 2:07 PM CDT) UA Color Yellow Light Yellow, Yellow 12/23/2023 2:23 PM CDT [facility] Urine Appearance Clear Clear 12/23/19 2:23 PM CDT [facility] Urine Specific [place] 1.025 1.005 - 1.030 12/23/2023 2:23 PM CDT [facility] Urine pH 7.5 5.0 - 8.0 12/23/2023 2:23 PM CDT [facility] Urine Leukocyte Esterase Negative Negative 12/23/2023 2:23 PM CDT [facility] Urine Nitrates Negative Negative 12/23/2023 2:23 PM CDT [facility] Urine Protein Negative Negative 12/23/2023 2:23 PM CDT [facility] Urine Glucose Negative Negative 12/23/2023 2:23 PM CDT [facility] Urine Ketones Negative Negative 12/23/2023 2:23 PM CDT [facility] Urine Urobilinogen Normal Normal 12/23/2023 2:23 PM CDT [facility] Urine Bilirubin Negative Negative 2:23 PM CDT [facility] Urine Blood Negative Negative 12/23/2023 2:23 PM CDT [facility] Urine [employer] [place] URINE SPECIMEN OBTAINED BY CLEAN CATCH PROCEDURE / Unknown Non-blood collection / Unknown 12/23/2023 2:07 PM CDT 12/23/2023 2:07 PM CDT Elissa HAMILTON URINE ORDERABLES [facility] [address] [place] [address], [facility] [phone] * (ABNORMAL) URINE DRUG SCREEN (12/23/2023 2:07 PM CDT) Urine Tetrahydrocannabinol Screen Negative Negative 12/23/2023 5:[address] [facility] Urine Phencyclidine Screen Negative Negative 12/23/2023 5:[address] [facility] Urine Cocaine Screen Negative Negative 12/12 5:[address] [facility] Urine Methamphetamine Screen Qualitative Negative Negative 12/23/2023 5:[address] [facility] Urine Morphine Screen Qualitative Negative Negative 12/23/2023 5:[address] [facility] Urine Amphetamines Screen Qualitative Positive(A ) Negative 12/23/2023 5:[address] [facility] Urine Benzodiazepines Screen Qualitative Negative Negative 12/23/2023 5:[address] [facility] Urine Tricyclic Antidepressants Screen Qualitative Negative Negative 12/23/2023 5:[address] [facility] Urine Methadone Screen Qualitative Negative Negative 12/23/2023 5:[address] [facility] Urine Barbiturates Screen Qualitative Negative Negative 12/23[facility]23 5:[facility] Urine Oxycodone Screen Qualitative Negative Negative 12/23/2023 5:[address] [facility] Urine VOIDED URINE SPECIMEN / Unknown Non-blood collection / Unknown 12/23/2023 2:07 PM CDT 12/23/2023 2:07 PM CDT [facility] - 12/23/2023 5:44 PM CDT Positive results are unconfirmed and will only be sent to a reference lab for confirmation upon request. Urine drug screens may have false positives that occur with a variety of medications and over the counter drugs. Urine specimens that have extreme pH values may produce erroneous results. Results of the urine drug screen are to be used for medical purposes and not for non-medical purposes: e.g. Legal or employment purposes. Elissa HAMILTON URINE ORDERABLES [facility] [address] [place] [address], [facility] [phone] * COMPREHENSIVE METABOLIC PANEL (12/23/2023 2:07 PM CDT) Sodium 138 135 - 144 mmol/L 12/23/2023 5:[address] [facility] Potassium 4.2 3.4 - 5.1 mmol/L 12/23/2023 5:[address] [facility] Chloride 100 98 - 107 mmol/L 12/23/2023 5:[address] [facility] Carbon Dioxide 28 22 - 30 mmol/L 12/23/2023 5:[address] [facility] Calcium 9.6 8.6 - 10.3 mg/dL 12/23/2023 5:[address] [facility] Alkaline Phosphatase 60 38 - 126 U/L 12/23/2023 5:[address] [facility] Aspartate Aminotransferase 26 14 - 36 U/L 12/23/2023 5:[address] [facility] Alanine Aminotransferase 21 <35 U/L 12/23/2023 5:[address] [facility] Glucose 96 74 - 100 mg/dL 12/23/2023 5:[address] [facility] Blood Urea nitrogen 15 7 - 17 mg/dL 12/23/2023 5:[address] [facility] Creatinine 0.97 0.52 - 1.04 mg/dL 12/23/2023 5:[address] [facility] Protein, Total 6.8 6.3 - 8.2 g/dL 12/23/2023 5:[address] [facility] Albumin 4.2 3.5 - 5.0 g/dL 12/23/2023 5:[address] [facility] Bilirubin, Total 0.2 0.2 - 1.3 mg/dL 12/23/2023 5:[address] [facility] Globulin 2.6 1.4 - 4.8 g/dL 12/23/2023 5:[address] [facility] Anion Gap 10 5 - 15 mmol/L 12/23/2023 5:[address] [facility] Glomerular Filtration Rate >60 >60 mL/min/1. 73 m*2 12/23/2023 5:[address] [facility] Comment:This calculation use s CKD-EPI 2020 equation; it has not been validated in women. Blood BLOOD SPECIMEN / Unknown Venipuncture / Unknown 12/23/2023 2:07 PM CDT 12/23/2023 2:07 PM CDT Elissa Waggoner DO CHEMISTRY ORDERAB LES Performing Organization Address [facility]/State/[facility] Co de Phone Number [facility] [address] [place] [address] * HEMOGRAM (12/23/2023 2:07 PM CDT) WBC 6.2 4.0 - 11.0 X10*3u/L 12/23/2023 2:31 PM CDT [facility] RBC 4.10 3.80 - 5.20 X10*6/uL 12/23/2023 2:31 PM CDT [facility] HGB 13.3 12.0 - 16.0 g/dl 12/23/2023 2:31 PM CDT [facility] HCT 39.1 35.0 - 47.0 % 12/23/2023 2:31 PM CDT [facility] MCV 95.4 80 - 98 fL 12/23/2023 2:31 PM CDT [facility] MCH 32.4 27.0 - 34.0 pg 12/23/2023 2:31 PM CDT [facility] MCHC 34.0 32 - 36 g/dl 12/23/2023 2:31 PM CDT [facility] PLT 331 150 - 420 X10*3/uL 12/23/2023 2:31 PM CDT [facility] RDW-CV 11.9 11.6 - 14.4 % 12/23/2023 2:31 PM CDT [facility] RDW-SD 40.3 36.5 - 46.3 fL 12/23/2023 2:31 PM CDT [facility] Blood BLOOD SPECIMEN / Unknown Venipuncture / Unknown 12/23/2023 2:07 PM CDT 12/23/2023 2:07 PM CDT Elissa HAMILTON HEMATOLOGY ORDERA BLES [facility] [address] [phone] * (ABNORMAL) LAMOTRIGINE (12/23/2023 2:07 PM CDT) Lamotrigine <0.2(L) 3.0 - 15.0 mcg/mL 12/24/2023 12:25 PM CDT [facility] Comment: ADDITIONAL INFORMATION This test was developed and its performance characteristics determined by [facility] in a manner consistent with CLIA requirements. This test has not been cleared or approved by the U.S. Food and Drug Administration. Test Performed by: [facility] - [address] [address] [employer] Processing Plant Manager: Gregorio Morel M.D. Ph.D.; CLIA# [id number] Blood BLOOD SPECIMEN / Unknown Venipuncture / Unknown 12/23/2023 2:07 PM CDT 12/23/2023 2:07 PM CDT Elissa M Edilson DO EC LAB SEND OUT ORDE RABLES [facility] [address] [place] [address], [facility] [phone] * THYROID SCREEN WITH REFLEX (12/23/2023 2:07 PM CDT) Thyroid Stimulating hormone 0.74 0.47 - 4.68 mIU/L 12/23/2023 5:[address] [facility] Blood BLOOD SPECIMEN / Unknown Venipuncture / Unknown 12/23/2023 2:07 PM CDT 12/23/2023 2:07 PM CDT Elissa Waggoner DO EC CHEMISTRY ORDERAB LES ABN Performing Organization Address City/[facility]/ZIP Co de Phone Number [facility] [address] [place] [address], [facility] [phone] * (ABNORMAL) LIPID PANEL (12/23/2023 2:07 PM CDT) Cholesterol 176 100 - 200 mg/dL 12/23/2023 5:[address] [facility] Triglycerides 175(H) <150 mg/dL 12/23/2023 5:[address] [facility] HDL Cholesterol, Measured 100(H) 45 - 60 mg/dL 12/23/2023 5:[address] [facility] Non-HDL Cholesterol 76 <130 mg/dL 12/23/2023 5:[address] [facility] LDL Cholesterol, Calculated 41 <130 mg/dL 12/23/2023 5:[address] [facility] Blood BLOOD SPECIMEN / Unknown Venipuncture / Unknown 12/23/2023 2:07 PM CDT 12/23/2023 2:07 PM CDT Narrative [facility] - 12/23/2023 5:24 PM CDT Cholesterol Reference Ranges (Adults >20 years) ??Desirable: ? <200 mg/dL ??Borderline High: 200-239 mg/dL ??High Risk: ? >240 mg/dL Cholesterol Reference Ranges (Children <20 years) ??Desirable: ? <169 mg/dL ??Borderline High: 170-199 md/dL ??High Risk: ? >200 mg/dL Triglyceride Reference Ranges ??Desirable: ? <150 mg/dL ??Borderline High: 150-199 mg/dL ??High Risk: ? >200 mg/dL NON-HDL Reference Ranges ??Desirable: < ? 130 mg/dL ??Near Desirable: ??130-159 mg/dL ??Borderline High: 160-189 mg/dL ??High Risk: ? 190-219 mg/dL ??Very high Risk: ??>/=220 mg/dL Elissa Waggoner DO EC CHEMISTRY ORDERAB LES ABN Performing Organization Address City/State/[facility] Co de Phone Number [facility] [address] [phone] from Last 3 Months Care Teams Database Development Project Manager Relationship Specialty Start Date End Date Elissa Waggoner DO [address] [id number] PCP - General Internal Medicine 12/23/23
--- OUTSIDE RECORDS SUMMARY | 2024-01-19 20:53 | XMS_ITS | Encounter Summary ---
Author Name Unknown Organization [facility] Address [address] [address] Phone Care Team Providers Care Link Assembler Name Role Phone Unavailable Primary Care Provider Unavailabl e Reason for Visit * Reason Onset Date Comments Medication Problem 12/10/2023 Patient reque sting Capsules. Requires PA to be denied prior to patient being able to pay out of pocket due to Insurance. Encounter Details Date Type Department Care Team (Late st Contact Info) Description 12/10/2023 Telephone [facility] [address] [place] [address] Imer Hoffman, RAFA Medication Problem (Patient requesting Capsules. Requires PA to be denied prior to patient being able to pay out of pocket due to Insurance. ) Social History Tobacco Use Types Packs/Day Years [...] DAY FROM ALL SOURCES 30 Capsule 0 12/13/2023 12/18/2023 butalbital-acetaminop hen-caffeine (Fioricet, Esgic) 50-325-40 MG oral tabletIndications:Ranjith salvador without aura and without status migrainosus, not intractable Take 1 Tablet by mouth every six hours as needed for Pain. Acetaminophen should be limited to 4000 mg per day. 30 Tablet 0 12/12/2023 12/13/2023 documented in this encounter Miscellaneous Notes * Telephone Encounter - Hussein Dumont RN - 12/17/2023 9:42 AM CST Called and confirmed that Rx was denied by insurance. Pharmacy confirmed denial but asked for Fax of insurance denial to process medication order for Outof Pocket. Sent to pharmacy by fax. Thank you. CIATE MEDIA DIRECTOR * Telephone Encounter - Lorelei Cage RN - 12/16/2023 10:33 AM ASSOCIATE MEDIA DIRECTOR PA denied. We are not approving your request because: - Documentation has not shown that you have tried and failed ypwqfyfanx-[id number]-[id number] 50 mg-325 mg-40 mg tablets. We realize this may not be the answer you expected. We made this decision based on: - Information from your doctor - [facility] Drug List Coverage Criteria for butalbitalacetaminophen- caffeine 50 mg-300 mg-40 mg capsules CIATE MEDIA DIRECTOR * Telephone Encounter - Lorelei Cage RN - 12/13/2023 4:52 PM CST PA started through Epic - Questions answered. Awaiting a response. CIATE MEDIA DIRECTOR * Telephone Encounter - Nico Mckenzie MD - 12/13/2023 4:45 PM CST It printed out.. gave to Imer CIATE MEDIA DIRECTOR * Addendum Note - Nico Mckenzie MD - 12/13/2023 4:45 PM CSTAddended by: NICO MCKENZIE on: 12/13/2023 04:45 PM Modules accepted: Orders CIATE MEDIA DIRECTOR * Addendum Note - Hussein Dumont RN - 12/13/2023 3:57 PM CSTAddended by: HUSSEIN DUMONT on: 12/13/2023 03:57 PM Modules accepted: Orders CIATE MEDIA DIRECTOR * Telephone Encounter - Hussein Dumont RN - 12/13/2023 3:35 PM CST Called pharmacy to review request as patient is declining to switch to Tablets and is willing to pay out of pocket. Denial from insurance is needed due to patient's insurance coverage or pharmacy can't process the Capsules. Once order is changed and PA is denied please contact pharmacy to make them aware so they can reprocess Rx for Fioricet Capsules. Thank you. Medication request: Fioricet 50-300-400 MG Capsules Dx: Migraine Per [place] [employer]PECTOR Last Date Dispensed: 08/21/23 Quantity: #30 Days Supply: 7 days Last Med Check: 06/11/23 DOA testin06/11/23 CIATE MEDIA DIRECTOR * Telephone Encounter - Paola Bojoruqez - 12/13/2023 2:14 PM CST [facility] ([place]) states patient does not want to change from capsules to tablets for the Butalbital-Acetaminophen Caffeine. Pharmacy states to continue pursuing PA for capsules. Ok to call pharmacy if any questions. Thank you CIATE MEDIA DIRECTOR * Telephone Encounter - Lorelei Cage RN - 12/12/2023 8:[address] Mckenzie - please see the pended prescription for the formulary alternative to what was originally prescribed. Please sign as appropriate. CIATE MEDIA DIRECTOR * Telephone Encounter - Imer Hoffman CMA - 12/10/2023 8:27 AM CST PA started via Epic. CIATE MEDIA DIRECTOR documented in this encounter Plan of Treatment Not on file documented as of this encounter Visit Diagnoses Diagnosis Migraine without aura and without status migrainosus, not intractable- Primary Migraine without aura, without mention of intractable migraine without mention of status migrainosus Migraine without status migrainosus, not intractable, unspecified migraine type documented in this encounter Discontinued Medications Medication Sig Discontinue Reason Start Date End Da te butalbital-acetaminop hen-caffeine (Fioricet) 50-300-40 MG oral capsuleIndications:Mi graine without status migrainosus, not intractable, unspecified migraine type TAKE ONE CAPSULE BY MOUTHEVERY SIX HOURS NEEDEDFOR MIGRAINE. LIMIT ACETAMINOPHEN TO 4000 MG PER DAY FROM ALL SOURCES Changed to an alternate therapy 12/04/2023 12/12/2023 butalbital-acetaminop hen-caffeine (Fioricet, Esgic) 50-325-40 MG oral tabletIndications:Ranjith modesto without aura and without status migrainosus, not intractable Take 1 Tablet by mouth every six hours as needed for Pain. Acetaminophen should be limited to 4000 mg per day. Other 12/12/2023 12/13/2023 documented as of this encounter
--- OUTSIDE RECORDS SUMMARY | 2024-01-19 20:53 | XMS_ITS | Referral Summary ---
Author Name Unknown Organization [facility] Address [address] [place] [id number] Care Team Providers Care Laboratory Secretary Name Role Phone Unavailable Primary Care Provider Unavailabl e Resolved Problems Problem Noted Date Diagnosed Date Resolved Date Ankle pain 01/30/2013 11/12/2013 Other postprocedural status(V45.89) 01/30/2013 11/12/2013 Social History Tobacco Use Types Packs/Day Years Used Date Smoking Tobacco: Never Assessed Adolescent Education Answer Date Record ed Getting School Help Needed Not on file 07/30 Sex and Gender Information Value Date Recorded Sex Assigned at Not on file Gender Identity Not on file Sexual Orientation Not on file Plan of Treatment Not on file
--- OUTSIDE RECORDS SUMMARY | 2024-01-19 20:53 | XMS_ITS | Encounter Summary ---
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 Name Role Phone Flora Waggoner DO Primary Care Provider [phone] Reason for Visit * Reason Comments Follow Up Encounter Details Date Type Department Care Team (Latest Contact Info) Description 12/23/2023 1:30 PM CDT Office Visit [facility] [address] [place] [phone] Flora Waggoner DO [address] [place], [place] [id number] Attention deficit hyperactivity disorder (ADHD), combined type (Primary Dx); Migraine without aura and without status migrainosus, not intractable; Hypothyroidism, unspecified type; Anxiety; Weight gain; Primary insomnia; Screening for cardiovascular condition; Recurrent streptococcal pharyngitis; Current mild episode of major depressive disorder without prior episode (HCC); Preop examination Social History Tobacco Use Types Packs/Day Years [...] on file documented as of this encounter Last Filed Vital Signs Vital Sign Reading Time Taken Comments Blood Pressure 112/60 12/23/2023 2:01 PM CDT Pulse 80 12/23/2023 2:01 PM CDT Temperature 36.4 ??C (97.5 ??F) 12/23/2023 2:01 PM CD T Respiratory Rate - - Oxygen Saturation - - Inhaled Oxygen Concentration - - Weight 64 kg (141 lb) 12/23/2023 2:01 PM CDT Height - - Body Mass Index 23.46 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 1. Attention deficit hyperactivity disorder (ADHD), combined type (Primary) Assessment & Plan: You are doing well [...] least every six months for medication check. Orders: - URINE DRUG SCREEN - buPROPion XL (Wellbutrin XL) 300 MG 24 hour extended release tablet; Take 1 Tablet by mouth one time a day. 2. Migraine without aura and without status migrainosus, not intractable Assessment & Plan: Stable with topiramate daily and as needed Fioricet. Orders: - topiramate (Topamax) 200 MG tablet; Take 1 Tablet by mouth at bedtime. Do not crush. - yuqmtihzfe-qsmxetnqrrnqv-vbsbgozs (Fioricet, Esgic) 50-325-40 MG oral tablet; Take 1 Tablet by mouth every six hours as needed for Pain. Acetaminophen should be limited to 4000 mg per day. 3. Hypothyroidism, unspecified type Assessment & Plan: Frustrated with recent weight gain. Checking thyroid function today. Will be in touch if dose change of levothyroxine is advised Orders: - HEMOGRAM - THYROID SCREEN WITH REFLEX - THYROID SCREEN WITH REFLEX - levothyroxine (Synthroid) 75 MCG tablet; Take 1 Tablet by mouth one time a day. 4. Anxiety Assessment & Plan: You believe you are NOT currently taking lamotrigine. Checking level today. Up and down days but feel you are doing ok. Orders: - LAMOTRIGINE - buPROPion XL (Wellbutrin XL) 300 MG 24 hour extended release tablet; Take 1 Tablet by mouth one time a day. - LORazepam (Ativan) 0.5 MG tablet; Take 1 Tablet by mouth two times a day as needed for Anxiety. 5. Weight gain Assessment & Plan: Uncertain etiology, 20 lbs from last visit. Several possible culprit medications. Checking thyroid function and additional labs today. Menses regular. Not recently on steroids or hormones. Orders: - HEMOGRAM - COMPREHENSIVE METABOLIC PANEL - THYROID SCREEN WITH REFLEX - URINALYSIS, REFLEX TO MICROSCOPIC 6. Primary insomnia Assessment & Plan: Managed with trazodone for sleep Orders: - traZODone (Desyrel) 50 MG tablet; Take 1 Tablet by mouth at bedtime. 7. Screening for cardiovascular condition - LIPID PANEL 8. Recurrent streptococcal pharyngitis Assessment & Plan: Upcoming consultation with ENT. Strongly desiring tonsillectomy. 9. Current mild episode of major depressive disorder without prior episode (HCC) Assessment & Plan: Not currently on lamotrigine. Continues bupropion XL Previously established with therapist 10. Preop examination Assessment & Plan: After note addendum. Struggling with recurrently tonsillitis/pharyngitis [...] to procedure: 2 days for ibuprofen (Advil) and4 days for naproxen (Aleve). Hold your Adderall on day of procedure. * Medication recommendations are not intended to be exhaustive; they are limited to common medications that are potentially dangerous if incorrectly managed Labs * Data supports elimination of ???routine??? laboratory testing in favor of focused, ???indicated??? testing based on medical co-morbidities. A 2009 study randomized 1061 patients undergoing ambulatory, non-cataract surgery to routine or to indicated testing. Perioperative adverse events were similar (Anesthesia & Analgesia 2009;108:467-75; Anesthesiol. Clin. 2016 Mar;34(1):43-58). EKG * The ACC/AHA recommends against obtaining routine EKGs in patients undergoing low risk surgeries, a class IIa recommendation (JACC. 2014;64(21);e1-76). Session ID: [id number] Endnotes and bibliography available upon request: [email or web address] Other orders - Nalmefene HCl (Opvee) 2.7 MG/0.1ML Solution; Place 4 mg into one nostril one time for 1 dose. If your provider has ordered a radiology test that needs to be scheduled at any of the [place] facilities, for your convenience and to offer you the best service, we ask that you contact the [facility] directly at [phone]. If you have an Ultrasound or DEXA order from [facility], those are performed directly by them. Please call [phone] ([place]) or [phone] ([place]) to schedule those tests. documented in this encounter Ordered Prescriptions Prescription Sig Dispensed Refills Start Date End Da te levothyroxine (Synthroid) 75 MCG tabletIndications:Hyp othyroidism, unspecified type Take 1 Tablet by mouth one time a day. 90 Tablet 3 12/24/2023 butalbital-acetaminop hen-caffeine (Fioricet, Esgic) 50-325-40 MG oral tabletIndications:Ranjith modesto without aura and without status migrainosus, not intractable Take 1 Tablet by mouth every six hours as needed for Pain. Acetaminophen should be limited to 4000 mg per day. 30 Tablet 5 12/23/2023 LORazepam (Ativan) 0.5 MG tabletIndications:Anx iety Take 1 Tablet by mouth two times a day as needed for Anxiety. 10 Tablet 1 12/23/2023 traZODone (Desyrel) 50 MG tabletIndications:Elizabeth rafael insomnia Take 1 Tablet by mouth at bedtime. 90 Tablet 3 12/23/2023 topiramate (Topamax) 200 MG tabletIndications:Ranjith modesto without aura and without status migrainosus, not intractable Take 1 Tablet by mouth at bedtime. Do not crush. 90 Tablet 3 12/23/2023 buPROPion XL (Wellbutrin XL) 300 MG 24 hour extended release tabletIndications:Att ention deficit hyperactivity disorder (ADHD), combined type,Anxiety Take 1 Tablet by mouth one time a day. 90 Tablet 3 12/23/2023 amphetamine-dextroamp hetamine XR (Adderall XR) 30 MG 24 hour capsuleIndications:At tention deficit hyperactivity disorder (ADHD), combined type Take 1 Capsule by mouth every morning for 90 days. Should be given by noon. Swallow whole or open,sprinkle contents on food 90 Capsule 0 12/23/2023 12/23/2023 amphetamine-dextroamp hetamine (Adderall) 20 MG tabletIndications:Att ention deficit hyperactivity disorder (ADHD), combined type Take 1 Tablet by mouth every morning for 90 days. To avoid insomnia, last daily dose should be taken no less than 6 hours before bed. 90 Tablet 0 12/23/2023 12/23/2023 Nalmefene HCl (Opvee) 2.7 MG/0.1ML Solution Place 4 mg into one nostril one time for 1 dose. 1 Each 3 12/23/2023 12/23/2023 levothyroxine (Synthroid) 50 MCG tabletIndications:Hyp othyroidism, unspecified type Take 1 Tablet by mouth one time a day. 90 Tablet 3 12/23/2023 12/24/2023 documented in this encounter Progress Notes * Flora Waggoner, DO - 12/23/2023 1:30 PM CDT Images from the original note were not included. [place] Office Visit Subjective Helga is a 28 year old female who presents for Follow Up Clinical Note: Follow-up for ADHD management, chronic migraines, anxiety and depression. Since last visit, has been treated for several strep infections. Strongly desiring tonsillectomy. Has ENT consultation this week. Unwanted weight gain of 20 lbs in the last few months. Menses regular. Adherent to her levothyroxine. Not currently taking lamotrigine. Not on hormones. Was given steroids a few times due to rash after strep infection. Sounds like diagnosed with guttate psoriasis. May start immunotherapy if coveredby insurance. Please refer to PHQ-9 and LINDSEY-7 score for symptomatology and severity. Recent difficulty getting ADHD scripts filled. Her pharmacy was recently affected by electronic script downtime. This has been very frustrating. 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 Struggling with recurrently tonsillitis as mentioned above. After ENT consultation, plan to proceed with tonsillectomy. Helga is medically appropriate to proceed. Review of Systems Constitutional: Negative for activity change. HENT: Negative for trouble swallowing. Psychiatric/Behavioral: Negative for dysphoric mood. The patient is not nervous/anxious. Objective Jump to Vitals Flowsheets BP 112/60 Pulse 80 Temp 36.4 ??C (97.5 ??F) Wt 64 kg (141 lb) BMI 23.46 kg/m?? Physical Exam Vitals and nursing note reviewed. Constitutional: Appearance: Normal appearance. HENT: Mouth/Throat: Mouth: Mucous membranes are moist. Pharynx: Oropharynx is clear. No oropharyngeal exudate or posterior oropharyngeal erythema. Comments: Tonsils 1+ Procedures Assessment/Plan 1. Attention deficit hyperactivity disorder (ADHD), combined type (Primary) Assessment & Plan: You are doing well [...] least every six months for medication check. Orders: - URINE DRUG SCREEN - buPROPion XL (Wellbutrin XL) 300 MG 24 hour extended release tablet; Take 1 Tablet by mouth one time a day. 2. Migraine without aura and without status migrainosus, not intractable Assessment & Plan: Stable with topiramate daily and as needed Fioricet. Orders: - topiramate (Topamax) 200 MG tablet; Take 1 Tablet by mouth at bedtime. Do not crush. - znvpqrduqf-lwghppksbniaj-yxgxvmye (Fioricet, Esgic) 50-325-40 MG oral tablet; Take 1 Tablet by mouth every six hours as needed for Pain. Acetaminophen should be limited to 4000 mg per day. 3. Hypothyroidism, unspecified type Assessment & Plan: Frustrated with recent weight gain. Checking thyroid function today. Will be in touch if dose change of levothyroxine is advised Orders: - HEMOGRAM - THYROID SCREEN WITH REFLEX - THYROID SCREEN WITH REFLEX - levothyroxine (Synthroid) 75 MCG tablet; Take 1 Tablet by mouth one time a day. 4. Anxiety Assessment & Plan: You believe you are NOT currently taking lamotrigine. Checking level today. Up and down days but feel you are doing ok. Orders: - LAMOTRIGINE - buPROPion XL (Wellbutrin XL) 300 MG 24 hour extended release tablet; Take 1 Tablet by mouth one time a day. - LORazepam (Ativan) 0.5 MG tablet; Take 1 Tablet by mouth two times a day as needed for Anxiety. 5. Weight gain Assessment & Plan: Uncertain etiology, 20 lbs from last visit. Several possible culprit medications. Checking thyroid function and additional labs today. Menses regular. Not recently on steroids or hormones. Orders: - HEMOGRAM - COMPREHENSIVE METABOLIC PANEL - THYROID SCREEN WITH REFLEX - URINALYSIS, REFLEX TO MICROSCOPIC 6. Primary insomnia Assessment & Plan: Managed with trazodone for sleep Orders: - traZODone (Desyrel) 50 MG tablet; Take 1 Tablet by mouth at bedtime. 7. Screening for cardiovascular condition - LIPID PANEL 8. Recurrent streptococcal pharyngitis Assessment & Plan: Upcoming consultation with ENT. Strongly desiring tonsillectomy. 9. Current mild episode of major depressive disorder without prior episode (HCC) Assessment & Plan: Not currently on lamotrigine. Continues bupropion XL Previously established with therapist 10. Preop examination Assessment & Plan: After note addendum. Struggling with recurrently tonsillitis/pharyngitis [...] to procedure: 2 days for ibuprofen (Advil) and4 days for naproxen (Aleve). Hold your Adderall on day of procedure. * Medication recommendations are not intended to be exhaustive; they are limited to common medications that are potentially dangerous if incorrectly managed Labs * Data supports elimination of ???routine??? laboratory testing in favor of focused, ???indicated??? testing based on medical co-morbidities. A 2009 study randomized 1061 patients undergoing ambulatory, non-cataract surgery to routine or to indicated testing. Perioperative adverse events were similar (Anesthesia & Analgesia 2009;108:467-75; Anesthesiol. Clin. 2016 Mar;34(1):43-58). EKG * The ACC/AHA recommends against obtaining routine EKGs in patients undergoing low risk surgeries, a class IIa recommendation (JACC. 2014;64(21);e1-76). Session ID: [id number] Endnotes and bibliography available upon request: [email or web address] Other orders - Nalmefene HCl (Opvee) 2.7 MG/0.1ML Solution; Place 4 mg into one nostril one time for 1 dose. Follow-up Plans: Return in about 6 months (around 06/24/2024) for Follow-up of chronic medical conditions. documented in this encounter Miscellaneous Notes * Assessment & Plan Note - Flora Waggoner DO - 12/31/2023 9:38 AM CDT Associated Problem(s): Preop examination Images from the original note were not [...] to procedure: 2 days for ibuprofen (Advil) and4 days for naproxen (Aleve). Hold your Adderall on day of procedure. * Medication recommendations are not intended to be exhaustive; they are limited to common medications that are potentially dangerous if incorrectly managed Labs * Data supports elimination of ???routine??? laboratory testing in favor of focused, ???indicated??? testing based on medical co-morbidities. A 2009 study randomized 1061 patients undergoing ambulatory, non-cataract surgery to routine or to indicated testing. Perioperative adverse events were similar (Anesthesia & Analgesia 2009;108:467-75; Anesthesiol. Clin. 2016 Mar;34(1):43-58). EKG * The ACC/AHA recommends against obtaining routine EKGs in patients undergoing low risk surgeries, a class IIa recommendation (JACC. 2014;64(21);e1-76). Session ID: [id number] Endnotes and bibliography available upon request: [email or web address] Assessment & Plan Note - Flora Waggoner DO - 12/23/2023 3:32 PM CDT Associated Problem(s): Current mild episode of major depressive disorder without prior episode (HCC) Not currently on lamotrigine. Continues bupropion XL Previously established with therapist * Assessment & Plan Note - Flora Waggoner DO - 12/23/2023 3:31 PM CDT Associated Problem(s): Recurrent streptococcal pharyngitis Upcoming consultation with ENT. Strongly desiring tonsillectomy. * Assessment & Plan Note - Flora Waggoner DO - 12/23/2023 3:30 PM CDT Associated Problem(s): Weight gain Uncertain etiology, 20 lbs from last visit. Several possible culprit medications. Checking thyroid function and additional labs today. Menses regular. Not recently on steroids or hormones. * Assessment & Plan Note - Flora Waggoner DO - 12/23/2023 3:30 PM CDT Associated Problem(s): Migraine Stable with topiramate daily and as needed Fioricet. * Assessment & Plan Note - Flora Waggoner DO - 12/23/2023 3:29 PM CDT Associated Problem(s): Insomnia Managed with trazodone for sleep * Assessment & Plan Note - Flora Waggoner DO - 12/23/2023 3:29 PM CDT Associated Problem(s): Hypothyroidism, unspecified type Frustrated with recent weight gain. Checking thyroid function today. Will be in touch if dose change of levothyroxine is advised * Assessment & Plan Note - Flora Waggoner DO - 12/23/2023 3:28 PM CDT Associated Problem(s): Anxiety You believe you are NOT currently taking lamotrigine. Checking level today. Up and down days but feel you are doing ok. * Assessment & Plan Note - Flora Waggoner DO - 12/23/2023 3:28 PM CDT Associated Problem(s): ADHD You are doing well on current regimen [...] least every six months for medication check. * Addendum Note - Flora Waggoner DO - 12/23/2023 1:30 PM CDTAddended by: FLORA WAGGONER on: 12/24/2023 02:35 PM Modules accepted: Orders documented in this encounter Plan of Treatment Scheduled Orders Name Type Priority Associated Diagnoses Orde r Schedule THYROID SCREEN WITH REFLEX Lab Routine Hypothyroidism, unspecified type Expected: 03/25/2024, Expires: 12/23/2024 documented as of this encounter Procedures Procedure Name Priority Date/Time Associated Diagnosis Comments URINALYSIS, REFLEX TO MICROSCOPIC Routine 12/23/2023 2:07 PM CDT Weight gain URINE DRUG SCREEN Routine 12/23/2023 2:0 7 PM CDT Attention deficit hyperactivity disorder (ADHD), combined type COMPREHENSIVE METABOLIC PANEL Routine 12/23/2023 2:07 PM CDT Weight gain HEMOGRAM Routine 12/23/2023 2:07 PM CDT Hypothyroidism, unspecified type Weight gain LAMOTRIGINE Routine 12/23/2023 2:07 PM CDT Anxiety THYROID SCREEN WITH REFLEX Routine 12/23/2023 2:07 PM CDT Hypothyroidism, unspecified type Weight gain LIPID PROFILE Routine 12/23/2023 2:07 PM CDT Screening for cardiovascular condition documented in this encounter Results * (ABNORMAL) URINE DRUG SCREEN (12/23/2023 2:07 PM CDT) Urine Tetrahydrocannabinol Screen Negative Negative 12/23/2023 5:44 PM CDT [facility] Urine Phencyclidine Screen Negative Negative 12/23/2023 5:44 PM CDT [facility] Urine Cocaine Screen Negative Negative 12/12 5:44 PM CDT [facility] Urine Methamphetamine Screen Qualitative Negative Negative 12/23/2023 5:44 PM [facility] Urine Morphine Screen Qualitative Negative Negative 12/23/2023 5:44 PM CDT [facility] Urine Amphetamines Screen Qualitative Positive(A ) Negative 12/23/2023 5:44 PM CDT [facility] Urine Benzodiazepines Screen Qualitative Negative Negative 12/23/2023 5:44 PM CDT [facility] Urine Tricyclic Antidepressants Screen Qualitative Negative Negative 12/23/2023 5:44 PM [facility] Urine Methadone Screen Qualitative Negative Negative 12/23/2023 5:44 PM [facility] Urine Barbiturates Screen Qualitative Negative Negative 12/23/2023 5:44 PM [facility] Urine Oxycodone Screen Qualitative Negative Negative 12/23/2023 5:44 PM T [facility] Urine VOIDED URINE SPECIMEN / Unknown Non-blood collection / Unknown 12/23/2023 2:07 PM CDT 12/23/2023 2:07 PM CDT Narrative [facility] - 12/23/2023 5:44 PM CDT Positive [...] non-medical purposes: e.g. Legal or employment purposes. Flora HAMILTON URINE ORDERABLES [facility] [address] [place] [address], [facility] [phone] * URINALYSIS, REFLEX TO MICROSCOPIC (12/23/2023 2:07 PM CDT) UA Color Yellow Light Yellow, Yellow 12/23/2023 2:23 PM CDT [facility] Urine Appearance Clear Clear 12/23/19 2:23 PM CDT [facility] Urine Specific [place] 1.025 1.005 - 1.030 12/23/2023 2:23 PM T [facility] Urine pH 7.5 5.0 - 8.0 12/23/2023 2:23 PM CDT [facility] Urine Leukocyte Esterase Negative Negative 12/23/2023 2:23 PM CDT [facility] Urine Nitrates Negative Negative 12/23/2023 2:23 PM CDT [facility] Urine Protein Negative Negative 12/23/2023 2:23 PM CDT [facility] Urine Glucose Negative Negative 12/23/2023 2:23 PM CDT [facility] Urine Ketones Negative Negative 12/23/2023 2:23 PM CDT [facility] Urine Urobilinogen Normal Normal 12/23/2023 2:23 PM CDT [facility] Urine Bilirubin Negative Negative 2:23 PM CDT [facility] Urine Blood Negative Negative 12/23/2023 2:23 PM CDT [facility] Urine [employer] [place]STREAM URINE SPECIMEN OBTAINED BY CLEAN CATCH PROCEDURE / Unknown Non-blood collection / Unknown 12/23/2023 2:07 PM CDT 12/23/2023 2:07 PM CDT Flora Waggoner DO EC URINE ORDERABLES [facility] [address] [place], [place] [address] [phone] * (ABNORMAL) LIPID PANEL (12/23/2023 2:07 PM CDT) Cholesterol 176 100 - 200 mg/dL 12/23/2023 5:24 PM CDT [facility] Triglycerides 175(H) <150 mg/dL 12/23/2023 5:24 PM CDT [facility] HDL Cholesterol, Measured 100(H) 45 - 60 mg/dL 12/23/2023 5:24 PM CDT [facility] Non-HDL Cholesterol 76 <130 mg/dL 12/23/2023 5:24 PM CDT [facility] LDL Cholesterol, Calculated 41 <130 mg/dL 12/23/2023 5:24 PM CDT [facility] Blood BLOOD SPECIMEN / Unknown Venipuncture / Unknown 12/23/2023 2:07 PM CDT 12/23/2023 2:07 PM CDT Narrative [facility] - 12/23/2023 5:24 PM CDT Cholesterol [...] 190-219 mg/dL ??Very high Risk: ??>/=220 mg/dL Flora Waggoner DO EC CHEMISTRY ORDERAB LES ABN Performing Organization Address City/[facility] Co de Phone Number [facility] [address] [phone] * THYROID SCREEN WITH REFLEX (12/23/2023 2:07 PM CDT) Thyroid Stimulating hormone 0.74 0.47 - 4.68 mIU/L 12/23/2023 5:41 PM CDT [facility] Blood BLOOD SPECIMEN / Unknown Venipuncture / Unknown 12/23/2023 2:07 PM CDT 12/23/2023 2:07 PM CDT Flora Waggoner DO EC CHEMISTRY ORDERAB LES ABN Performing Organization Address [facility] de Phone Number [facility] [address] [phone] * COMPREHENSIVE METABOLIC PANEL (12/23/2023 2:07 PM CDT) Sodium 138 135 - 144 mmol/L 12/23/2023 5:10 PM CDT [facility] Potassium 4.2 3.4 - 5.1 mmol/L 12/23/2023 5:10 PM CDT [facility] Chloride 100 98 - 107 mmol/L 12/23/2023 5:10 PM [facility] Carbon Dioxide 28 22 - 30 mmol/L 12/23/2023 5:10 PM [facility] Calcium 9.6 8.6 - 10.3 mg/dL 12/23/2023 5:10 PM [facility] Alkaline Phosphatase 60 38 - 126 U/L 12/23/2023 5:10 PM [facility] Aspartate Aminotransferase 26 14 - 36 U/L 12/23/2023 5:10 PM [facility] Alanine Aminotransferase 21 <35 U/L 12/23/2023 5:10 PM [facility] Glucose 96 74 - 100 mg/dL 12/23/2023 5:10 PM [facility] Blood Urea nitrogen 15 7 - 17 mg/dL 12/23/2023 5:10 PM [facility] Creatinine 0.97 0.52 - 1.04 mg/dL 12/23/2023 5:10 PM [facility] Protein, Total 6.8 6.3 - 8.2 g/dL 12/23/2023 5:10 PM [facility] Albumin 4.2 3.5 - 5.0 g/dL 12/23/2023 5:10 PM [facility] Bilirubin, Total 0.2 0.2 - 1.3 mg/dL 12/23/2023 5:10 PM [facility] Globulin 2.6 1.4 - 4.8 g/dL 12/23/2023 5:10 PM [facility] Anion Gap 10 5 - 15 mmol/L 12/23/2023 5:10 PM [facility] Glomerular Filtration Rate >60 >60 mL/min/1. 73 m*2 12/23/2023 5:10 PM [facility] Comment:This calculation use s CKD-EPI 2020 equation; it has not been validated in women. Blood BLOOD SPECIMEN / Unknown Venipuncture / Unknown 12/23/2023 2:07 PM CDT 12/23/2023 2:07 PM CDT Flora HAMILTON CHEMISTRY ORDERAB LES [facility] [address] [place] [id number] [phone] * HEMOGRAM (12/23/2023 2:07 PM CDT) WBC 6.2 4.0 - 11.0 X10*3u/L 12/23/2023 2:31 PM CDT [facility] RBC 4.10 3.80 - 5.20 X10*6/uL 12/23/2023 2:31 PM CDT [facility] HGB 13.3 12.0 - 16.0 g/dl 12/23/2023 2:31 PM CDT [facility] HCT 39.1 35.0 - 47.0 % 12/23/2023 2:31 PM CDT [facility] MCV 95.4 80 - 98 fL 12/23/2023 2:31 PM CDT [facility] MCH 32.4 27.0 - 34.0 pg 12/23/2023 2:31 PM CDT [facility] MCHC 34.0 32 - 36 g/dl 12/23/2023 2:31 PM CDT [facility] PLT 331 150 - 420 X10*3/uL 12/23/2023 2:31 PM CDT [facility] RDW-CV 11.9 11.6 - 14.4 % 12/23/2023 2:31 PM CDT [facility] RDW-SD 40.3 36.5 - 46.3 fL 12/23/2023 2:31 PM CDT [facility] Blood BLOOD SPECIMEN / Unknown Venipuncture / Unknown 12/23/2023 2:07 PM CDT 12/23/2023 2:07 PM CDT Flora HAMILTON HEMATOLOGY ORDERA BLES Performing Organization Address [facility]/ZIP Co de Phone Number [facility] [address] [place], [place] [address] [phone] * (ABNORMAL) LAMOTRIGINE (12/23/2023 2:07 PM CDT) Lamotrigine <0.2(L) 3.0 - 15.0 mcg/mL 12/24/2023 12:25 PM CDT [facility] Comment: ADDITIONAL INFORMATION This test was developed and its performance characteristics determined by [facility] in a manner consistent with CLIA requirements. This test has not been cleared or approved by the U.S. Food and Drug Administration. Test Performed by: [facility] - [address] [address] Account Support Rep: Gregorio Morel M.D. Ph.D.; CLIA# [id number] Blood BLOOD SPECIMEN / Unknown Venipuncture / Unknown 12/23/2023 2:07 PM CDT 12/23/2023 2:07 PM CDT Flora Sylvain Waggoner DO LAB SEND OUT REAGAN LOONEY Performing Organization Address [facility] Co de Phone Number [facility] [employer] [address] [place] [address] [phone] documented in this encounter Visit Diagnoses Diagnosis Attention deficit hyperactivity disorder (ADHD), combined type- Primary Migraine without aura and without status migrainosus, not intractable Migraine without aura, without mention of intractable migraine without mention of status migrainosus Hypothyroidism, unspecified type Anxiety Anxiety state, unspecified Weight gain Abnormal weight gain Primary insomnia Persistent disorder of initiating or maintaining sleep Screening for cardiovascular condition Screening for other and unspecified cardiovascular conditions Recurrent streptococcal pharyngitis Current mild episode of major depressive disorder without prior episode (HCC) Preop examination Preoperative examination, unspecified documented in this encounter Discontinued Medications Medication Sig Discontinue Reason Start Date End Da te butalbital-acetaminoph en-caffeine (Fioricet) 50-300-40 MG oral capsuleIndications:Ranjith salvador without status migrainosus, not intractable, unspecified migraine type TAKE ONE CAPSULE BY MOUTHEVERY SIX HOURS NEEDEDFOR MIGRAINE. LIMIT ACETAMINOPHEN TO 4000 MG PER DAY FROM ALL SOURCES Patient quit taking 12/13/2023 12/18/2023 metroNIDAZOLE vaginal (Metrogel-Vaginal) 0.75 % vaginal gel Insert 1 Applicatorful vaginally daily for 5 days.* Patient quit taking 06/03/2023 12/18/2023 Adderall 20 MG tabletIndications:Atte ntion deficit hyperactivity disorder (ADHD), unspecified ADHD type Take 1 Tablet by mouth one time a day at noon. To avoid insomnia, last daily dose should be taken no less than 6 hours before bed. Brand name only Changed to an alternate therapy 06/11/2023 12/23/2023 Adderall 20 MG tabletIndications:Atte ntion deficit hyperactivity disorder (ADHD), unspecified ADHD type Take 1 Tablet by mouth one time a day at noon. To avoid insomnia, last daily dose should be taken no less than 6 hours before bed. Brand name only Changed to an alternate therapy 07/11/2023 12/23/2023 Adderall XR 30 MG 24 hour capsuleIndications:Att ention deficit hyperactivity disorder (ADHD), unspecified ADHD type Take 1 Capsule by mouth every morning for 30 days. Should be given by noon. Swallow whole or open,sprinkle contents on food Changed to an alternate therapy 12/16/2023 12/23/2023 amphetamine-dextroamph etamine (Adderall) 20 MG tabletIndications:Atte ntion deficit hyperactivity disorder (ADHD), unspecified ADHD type Take 1 Tablet by mouth one time a day at noon. To avoid insomnia, last daily dose should be taken no less than 6 hours before bed. Changed to an alternate therapy 09/11/2023 12/23/2023 amphetamine-dextroamph etamine (Adderall) 20 MG tabletIndications:Atte ntion deficit hyperactivity disorder (ADHD), unspecified ADHD type Take 1 Tablet by mouth one time a day at noon. To avoid insomnia, last daily dose should be taken no less than 6 hours before bed. Changed to an alternate therapy 10/10/2023 12/23/2023 amphetamine-dextroamph etamine (Adderall) 20 MG tabletIndications:Atte ntion deficit hyperactivity disorder (ADHD), unspecified ADHD type Take 1 Tablet by mouth one time a day at noon. To avoid insomnia, last daily dose should be taken no less than 6 hours before bed. Changed to an alternate therapy 12/16/2023 12/23/2023 levothyroxine (Synthroid) 50 MCG tabletIndications:Hypo thyroidism, unspecified type Take 1 Tablet by mouth one time a day. Reorder 10/29/2022 12/23/2023 buPROPion XL (Wellbutrin XL) 300 MG 24 hour extended release tabletIndications:Atte ntion deficit hyperactivity disorder (ADHD), combined type,Anxiety Take 1 Tablet by mouth one time a day. Reorder 10/29/2022 12/23/2023 topiramate (Topamax) 200 MG tabletIndications:Migr ivis without aura and without status migrainosus, not intractable Take 1 Tablet by mouth at bedtime. Do not crush. Reorder 10/29/2022 12/23/2023 traZODone (Desyrel) 50 MG tabletIndications:Prim prema insomnia Take 1 Tablet by mouth at bedtime. Reorder 10/29/2022 12/23/2023 Narcan 4 MG/0.1ML nasal spray Administer one dose (4 mg) into nostril as needed for opioid overdose and call 911. Give second dose into the other nostril after 2 to 3 min Reorder 01/16/2023 12/23/2023 LORazepam (Ativan) 0.5 MG tabletIndications:Anxi ety Take 1 Tablet by mouth two times a day as needed for Anxiety. Reorder 06/11/2023 12/23/2023 butalbital-acetaminoph en-caffeine (Fioricet, Esgic) 50-325-40 MG oral tablet Reorder 12/12/2023 12/23/2023 levothyroxine (Synthroid) 50 MCG tabletIndications:Hypo thyroidism, unspecified type Take 1 Tablet by mouth one time a day. Changed to an alternate therapy 12/23/2023 12/24/2023 documented as of this encounter Historical Medications * This list may reflect changes made after this encounter. Medication Sig Dispensed Refills Start Date End Date triamcinolone acetonide (Kenalog) 0.1 % ointment Apply topically to affected areas on arms, legs, trunk and back twice daily for 4 weeks.* 0 11/19/2023 cetirizine (ZyrTEC) 10 MG tablet Take 1 tablet by mouth every day As Needed for allergy symptoms* 0 11/09/2023 butalbital-acetaminophe n-caffeine (Fioricet, Esgic) 50-325-40 MG oral tablet 0 12/12/2023 12/23/2023 added in this encounter Care Teams Ampoule Washing Machine Operator Relationship Specialty Start Date End Date Flora Waggoner DO [address] [address] PCP - General Internal Medicine 12/23/23 documented as of this encounter
--- OUTSIDE RECORDS SUMMARY | 2024-01-19 20:53 | XMS_ITS | Encounter Summary ---
Author Name Unknown Organization [facility] Address [address] [address] Phone Care Team Providers Care Armored Car Driver Name Role Phone Edilson Elissa M DO Primary Care Provider [phone] Reason for Visit * Reason Onset Date Comments Medication Question 12/23/2023 Pharmacy Clarification 12/23/2023 Adderall Orders Encounter Details Date Type Department Care Team ([facility] Contact Info) Description 12/23/2023 Telephone [facility] [address] [place] [address] Helga Magallanes Medication Question; Pharmacy Clarification (Adderall Orders) Social History Tobacco Use Types Packs/Day Years [...] Dispensed Refills Start Date End Da te amphetamine-dextroampheta mine (Adderall) 20 MG tabletIndications:Attenti on deficit hyperactivity disorder (ADHD), combined type Take 1 Tablet by mouth every morning. To avoid insomnia, last daily dose should be taken no less than 6 hours before bed. 30 Tablet 0 02/21/2024 amphetamine-dextroampheta mine (Adderall) 20 MG tabletIndications:Attenti on deficit hyperactivity disorder (ADHD), combined type Take 1 Tablet by mouth every morning. To avoid insomnia, last daily dose should be taken no less than 6 hours before bed. 30 Tablet 0 01/22/2024 Adderall XR 30 MG 24 hour capsuleIndications:Attent ion deficit hyperactivity disorder (ADHD), combined type Take 1 Capsule by mouth every morning. Should be given by noon. Swallow whole or open,sprinkle contents on food 30 Capsule 0 02/21/2024 Adderall XR 30 MG 24 hour capsuleIndications:Attent ion deficit hyperactivity disorder (ADHD), combined type Take 1 Capsule by mouth every morning. Should be given by noon. Swallow whole or open,sprinkle contents on food 30 Capsule 0 01/22/2024 Adderall XR 30 MG 24 hour capsuleIndications:Attent ion deficit hyperactivity disorder (ADHD), combined type Take 1 Capsule by mouth every morning. Should be given by noon. Swallow whole or open,sprinkle contents on food 30 Capsule 0 12/23/2023 amphetamine-dextroampheta mine (Adderall) 20 MG tabletIndications:Attenti on deficit hyperactivity disorder (ADHD), combined type Take 1 Tablet by mouth every morning. To avoid insomnia, last daily dose should be taken no less than 6 hours before bed. 30 Tablet 0 12/23/2023 documented in this encounter Miscellaneous Notes * Telephone Encounter - Elissa Waggoner DO - 12/23/2023 4:59 PM CDT Thank you very much for taking the time to pend all scripts. I have approved the changes. * Telephone Encounter - Hussein Mackey RN - 12/23/2023 4:42 PM CDT Called pharmacy to review medication orders sent today. Per pharmacy insurance will only cover for 30 days. Will be able to have Rx filled for 30 but will void rest of the scripts and will need new scripts for future refills. Pharmacy also wanted to notify PCP that Patient prefers Brand name Rx of the Adderall XR 30 MG and insurance will only over if LYNN is on the prescription. Pending all 3 months for both medications with patient preference for brand name for the XR to PCP to review and advise. Patient hasn't picked up Rx for orders sent today for initial 30 days per pharmacy and [place] PDMP review. Medication request: Adderall 20 MG and XR 30 MG Brand Name (LYNN). Dx: ADHD Per [place] [employer] Last Date Dispensed: 11/16/23 for both. Quantity: #30 for both. Days Supply: 30 days for both. Last Med Check: 12/23/23 DOA testin12/23/23 * Telephone Encounter - Helga Magallanes - 12/23/2023 2:23 PM CDT [facility] is requesting a call back regarding Adderall scripts, stating insurance only covers 30day supply, requesting a call back please documented in this encounter Plan of Treatment Not on file documented as of this encounter Visit Diagnoses Diagnosis Attention deficit hyperactivity disorder (ADHD), combined type documented in this encounter Discontinued Medications Medication Sig Discontinue Reason Start Date End Da te amphetamine-dextroampheta mine (Adderall) 20 MG tabletIndications:Attenti on deficit hyperactivity disorder (ADHD), combined type Take 1 Tablet by mouth every morning for 90 days. To avoid insomnia, last daily dose should be taken no less than 6 hours before bed. Reorder 12/23/2023 12/23/2023 amphetamine-dextroampheta mine XR (Adderall XR) 30 MG 24 hour capsuleIndications:Attent ion deficit hyperactivity disorder (ADHD), combined type Take 1 Capsule by mouth every morning for 90 days. Should be given by noon. Swallow whole or open,sprinkle contents on food Reorder 12/23/2023 12/23/2023 documented as of this encounter Care Teams Armored Car Driver Relationship Specialty Start Date End Date Elissa Waggoner DO [address] [address] PCP - General Internal Medicine 12/23/23 documented as of this encounter
--- OUTSIDE RECORDS SUMMARY | 2024-01-19 20:53 | XMS_ITS | Encounter Summary ---
Author Name Unknown Organization [facility] [facility] Address [address] [address] Phone Care Team Providers Care Mottler Machine Feeder Name Role Phone Elissa Waggoner DO Primary Care Provider [phone] Reason for Visit * Reason Onset Date Comments Pre-Op 12/30/2023 Encounter Details Date Type Department Care Team ([facility] Contact Info) Description 12/30/2023 Telephone [facility] [address] [place] [phone] Elissa Waggoner, [address] [place], [place] [phone] Pre-Op Social History Tobacco Use Types Packs/Day Years [...] Yes 07/09/2020 documented as of this encounter Miscellaneous Notes * Telephone Encounter - Imer Hoffman CMA - 01/17/2024 12:08 PM CDT Patient was informed yesterday that she would have to come into the clinic to have Dr. Waggoner access her heart and lungs and then we could addend the office visit note from 12/23/2023 to accommodate in order for patient to have surgery on 01/17/[address] [facility]. Patient stated it was too far for her to drive and will go somewhere else and then hung up on physical plant employee Idalmis Shannon. * Telephone Encounter - Elissa Waggoner DO - 01/16/2024 12:19 PM CDT This was an addended office note. If note not acceptable, will need to come in for exam. * Telephone Encounter - Madison Urbano - 01/16/2024 11:[address] [facility] is calling because the Preop didn't include a heart and lung assessment on it. That's a requirement. * Telephone Encounter - Selena Hernandez LPN - 12/31/2023 10:59 AM CDT Faxed recent note with addendum to [facility] * Telephone Encounter - Elissa Waggoner DO - 12/31/2023 9:38 AM CDT Note modified. Please fax to ENT/surgery center * Telephone Encounter - Helga Spence - 12/30/2023 11:23 AM CDT Patient called in to request Dr. Waggoner approve her ok to have surgery January 16 at [facility] for a tonsillectomy. She said she just had a medication check up with her on 12/22 and would like to know if this is okay to suffice for this. Routing to nursing for review documented in this encounter Plan of Treatment Not on file documented as of this encounter Visit Diagnoses Not on filedocumented in this encounter Care Teams Mottler Machine Feeder Relationship Specialty Start Date End Date Elissa Waggoner DO [address] [address] PCP - General Internal Medicine 12/23/23 documented as of this encounter
--- OUTSIDE RECORDS SUMMARY | 2024-01-19 20:53 | XMS_ITS | Clinical Summary ---
Author Name Unknown Organization [facility] Address [address] [place] [address] Care Team Providers Care Slubber Hand Name Role Phone Mariella De Anda APRN, CNP Primary Care Provid er Source Comments You are receiving this document as you are listed as the primary care provider,follow-up provider, or the patient has been referred to you for consultation.This is in compliance with the Medicare andThe [facility] E[facility] Incentive Program,which states Providers who transition their patient to another setting of careor provider of care or refers their patient to another provider of care shouldprovide summary care record for each transition of care or referral. ALICE App Allergies Active Allergy Reactions Criticality Noted Date Comments Amoxicillin 09/15/2019 Latex 09/15/2019 Review Contrast Media 1997 PN: LW CM1: CONTRAST- nka Reaction : Review Food Intolerance 05/09/2010 PN: LW FI1: nka Medications Medication Sig Dispensed Refills Start Date End Date Status topiramate (TOPAMAX) 50 MG tabletIndications:FLAVIA ANTHONY SatJul 18, 2015 2:02 PM Received from: External Pharmacy Indications: PN: FLVAIA FLORES SatJul 18, 2015 2:02 PM Received from: External Pharmacy 10 06/20/2015 Active amphetamine-dextroamp hetamine (ADDERALL XR) 20 MG 24 hour release capsuleIndications:FLAVIA DAY SatJul 18, 2015 2:02 PM Received from: External Pharmacy 10 mg. Take 1/2 tab Indications: FLAVIA FLORES Jul 18, 2015 2:02 PM Received from: External Pharmacy 0 07/03/2015 Active eletriptan (RELPAX) 20 MG tablet Take 1 Tablet (20 mg) by mouth as needed for Migraine. Take at onset of migraine. May repeat in 2 hours if needed. Max 2/day, 4 days per month. Active levothyroxine (SYNTHROID) 50 MCG tablet Take 1 Tablet (50 mcg) by mouth daily. Active Gvmdvivcny-GILN-Lnqad ine 50-300-40 MG CAPS TAKE ONE CAPSULE BY MOUTH FOUR TIMES A DAY NEEDED FOR HEADACHES/MIGRAIN ES 08/13/2020 Active buPROPion (WELLBUTRIN XL) 300 MG 24 hour release tablet Take 1 Tablet (300 mg) by mouth daily. 05/24/2020 Active lamoTRIgine (LAMICTAL) 200 MG tablet 08/13/2020 Active amphetamine-dextroamp hetamine (ADDERALL XR) 30 MG 24 hour release capsule Take 30 mg by mouth. 09/14/2020 Active diclofenac (VOLTAREN) 75 MG enteric coated tabletIndications:Acu te bilateral thoracic back pain (HRC) Take 1 Tablet (75 mg) by mouth two times a day. 30 Tablet 1 04/08/2022 Active Additional Information Patient not taking.Reported on 06/18/2023 methocarbamol (ROBAXIN) 500 MG tabletIndications:Acu te bilateral thoracic back pain (HRC) Take 1 Tablet (500 mg) by mouth three times a day. 30 Tablet 04/08/2022 Active Additional Information Patient not taking.Reported on 06/18/2023 oxyCODONE (ROXICODONE) 5 MG immediate release tablet Take by mouth. 04/12/[address] (PROTONIX) 20 MG tablet Take 1 Tablet (20 mg) by mouth daily. 02/06/2022 Active topiramate (TOPAMAX) 200 MG tablet Take 1 Tablet (200 mg) by mouth daily as needed. 02/06/2022 Active traZODone (DESYREL) 50 MG tablet Take 1 Tablet (50 mg) by mouth daily at bedtime. Active ondansetron (ZOFRAN-ODT) 4 MG disintegrating tablet Take 1 Tablet (4 mg) by mouth. 03/29/2022 Active fluconazole (DIFLUCAN) 150 MG tablet Take 1 Tablet (150 mg) by mouth once a week. Take one today and another in a week if symptoms persist 2 Tablet 06/26/2023 Active Active Problems Problem Noted Date Diagnosed Date Osteopenia 04/17/2022 Body mass index (BMI) 19.9 or less, adult 2021 Hypothalamic hypogonadism 12/26/2021 Hypoestrogenism 12/26/2021 Secondary amenorrhea 12/26/2021 Loss of weight 10/08/2014 Orthostasis 10/08/2014 Nonspecific abnormal electrocardiogram (ECG) (EK G) 10/08/2014 ADHD (attention deficit hyperactivity disorder) 09/27/2014 Marijuana abuse in remission 09/27/2014 Alcohol abuse, in remission 09/27/2014 H/O foot surgery 09/27/2014 Panic disorder without agoraphobia 09/27/2014 Eating disorder 09/27/2014 Overview: Eating disorder, unspecified Major depressive disorder, recurrent episode Overview: Major depressive disorder, recurrent episode, unspecified (HRC) Self-injurious behavior 09/27/2014 School avoidance 09/27/2014 Immunizations Name Administration Dates Next Due 4vHPV (Gardasil) 09/29/2014,03/23/2014 9vHPV (Gardasil 9) 03/15/2020,07/01/2017 DTaP 09/23/2002, 9,04/01/1998,1997,1997 Flu Vac (3+ yrs) 09/29/2014,11/09/2002, 2 HepA Ped/Adol (1-18 yrs) 06/01/2008,08/01/2007 HepB, Unspecified Formulation 07/01/1998, 998,1997 Hib, Unspecified Formulation 04/06/1999, 04/01/1998,01/21/1998,1997 IPV (Polio) 09/23/2002, 8,01/21/1998,1997 Influenza IIV4 (Quadrivalent ) 0.5mL (56810) 09/29/2014,08/02/2011,10/11/2010,2008,07/29/2008,08/01/2007,11/06/2006 Influenza Vaccine TIV, Nasal 08/02/2011, 10/11/2010,05/20/2009,2007,08/01/2007,11/06/2006 Influenza, Unspecified Formulation 09/29/2014,,09/23/2002 MMR 09/23/2002,10/03/1999 Pneumococcal 7, PED 08/20/2000 Polio, Unspecified Formulation 04/01/1998,1997,1997 Tdap 03/15/2020,03/23/2014 Varicella 06/01/2008,10/21/1998 Family History Medical History Relation Name Comments Diabetes Father Adopted Maternal Grandfather Adopted Maternal Grandmother Cancer Paternal Grandfather Relation Name Status Comments Father Alive Mother Alive Maternal Grandfather Maternal Grandmother Paternal Grandfather Alive Paternal Grandmother Alive Social History Tobacco Use Types Packs/Day Years Used Date Smoking Tobacco: Never Smokeless Tobacco: Never Alcohol Use Standard Drinks/Week Comments Yes 0 (1 standard drink = 0.6 oz pur e alcohol) 2 q week Sex and Gender Information Value Date Recorded Sex Assigned at Not on file Gender Identity Not on file Sexual Orientation Not on file Last Filed Vital Signs Vital Sign Reading Time Taken Comments Blood Pressure 116/77 06/26/2023 8:49 AM CDT Pulse 78 06/26/2023 8:49 AM CDT Temperature 36.2 ??C (97.1 ??F) 04/08/2022 1 1:23 AM CDT Respiratory Rate 16 10/19/2014 5:13 PM REMEDIATION BIOANALYTICS CONSULTANT Oxygen Saturation 100% 10/19/2014 8:30 PM REMEDIATION BIOANALYTICS CONSULTANT Inhaled Oxygen Concentration - - Weight 58.4 kg (128 lb 12.8 oz) 06/26/2023 8:49 AM CDT Height 165.1 cm (5' 5) 06/26/2023 8:49 AM CDT Body Mass Index 21.43 06/26/2023 8:49 AM CDT Plan of Treatment Health Maintenance Due Date Last Done Comments Hep C Screening (Preventive Services) 1997 Pneumococcal (1 - PCV) 2003 08/20/2000 HIV Screening (Preventive Services) 2013 Adult Preventive Visit 07/01/2019 07/01/2017 COVID-19 Vaccine ( season) 2023 Influenza (#1) 2023 09/29/2014, 09/13, 09/29/2014, Additional history exists Cervical Cancer Screening 06/03/2026 06/03/2023, DTaP/Tdap/Td (8 - Tdap) 03/15/2030 03/15/20 20, 03/23/2014, 09/23/2002, Additional history exists Zoster/Shingles (1 of 2) 2047 HepB Completed 07/01/1998, 01/12, 1997 Hib Completed 04/06/1999, 03/14, 01/21/1998, Additional history exists IPV (Polio) Completed 09/23/2002, 03/14, 04/01/1998, Additional history exists HepA Completed 06/01/2008, 08/01/2007 Varicella Completed 06/01/2008, 10/21/1998 HPV Vaccine Completed 03/15/2020, 06/14, 09/29/2014, Additional history exists Chlamydia Discontinued 06/03/2023, 02/12, 11/18/2020, Additional history exists MCV4 Aged Out No longer eligi ble based on patient's age to complete this topic Procedures Procedure Name Priority Date/Time Associated Diagnosis Comments CHLAMYDIA & GC (14 YEARS & OLDER) Routine 06/03/2023 8:44 AM CDT Vaginal discharge PAP TEST Routine 06/03/2023 8:44 AM CDT Screening for malignant neoplasm of cervix from Last 3 Months or Most Recently Relevant to Health Maintenance Results * PAP Test (06/03/2023 8:44 AM CDT) Case Report Pap ? Case: [id number] ? Authorizing Provider: ??Neetu, Mariella R, ENTERTAINMENT CENTRE MANAGER, ??Collected: ? 06/03/2023 0844 ? CORPORATE LAW SPECIALIST ? Ordering Location: ? [facility] ?Received: ?06/03/2023 0854 ? Obstetrics/Gyneco logy ? First Screen: ?Alexia Jolly ? Specimen: ?Pap Test, Routine, Cervix/Endocervix ? 06/12/2023 1:12 PM CDT [facility] Pap Specimen Adequacy Satisfactory for evaluation, endocervical/salmon sformation zone component present. 06/12/2023 1:12 PM CDT [facility] Pap Interpretation (NILM) Negative for intraepithelial lesion or malignancy. 06/12/2023 1:12 PM CDT [facility] Pap Other Findings Fungal organisms morphologically consistent with Carolyne spp. 06/12/2023 1:12 PM CDT [facility] Pap Disclaimer The Pap test is a screening test to aid in the detection of cervical and vaginal cancers and their precursor lesions. It is not a diagnostic procedure and should not be used as the sole means of detecting malignancy. Both false-positive and false-negative results may occur. 06/12/2023 1:12 PM CDT [facility] Gross Description The specimen is received in SurePath fixative and properly labeled. 1 Pap-stained SurePath slide is prepared. 06/12/2023 1:12 PM CDT [facility] Embedded Images 1:12 PM CDT [facility] Other Specimen Type ENTIRE ENDOCERVIX / Unknown 06/03/2023 8:44 AM CDT 06/03/2023 8:54 AM CDT Comment:LMP: No LMP recorded . (Menstrual status: Irregular). Mariella De Anda APRN, CNP LAB PATHOLOG Y Performing Organization Address City/State/[facility] Co de Phone Number [facility] [address] * Chlamydia & GC (14 Years and Older): Vagina (06/03/2023 8:44 AM CDT) Chlamydia Trachomatis STD Not Detected Not Detected 06/03/2023 7:30 PM CDT [facility] N. gonorrhoeae STD Not Detected Not Detected 06/03/2023 7:30 PM CDT [facility] Swab STD SPECIMEN FROM VAGINA / Unknown Non-blood Collection / Unknown 06/03/2023 8:44 AM CDT 06/03/2023 8:51 AM CDT [facility] - 06/03/2023 7:30 PM CDT Test performed by Corn Detasseler Mediated Amplification (TMA). Mariella De Anda APRN, CNP LAB_1 [facility] [address] [place] [id number], [facility] [phone] from Last 3 Months or Most Recently Relevant to Health Maintenance Advance Directives * Full Code (Latest Code Status on File) Date Activated Date Inactivated Comments 10/19/2014 9:37 PM 10/26/2014 4:08 PM * Full Code Date Activated Date Inactivated Comments 10/08/2014 1:32 PM 10/19/2014 9:35 PM Care Teams Slubber Hand Relationship Specialty Start Date End Date Mariella De Anda APRN, CNP [address] [facility] [address] [place] [address] PCP - General Nurse Practitioner 01/26/21
--- OUTSIDE RECORDS SUMMARY | 2024-01-19 20:53 | XMS_ITS | Clinical Summary ---
Author Name Unknown Organization [facility] Address [address] [place] [id number] Care Team Providers Care Aquarist Name Role Phone Unavailable Primary Care Provider [...] Orientation Not on file Plan of Treatment Health Maintenance Due Date Last Done Comments ADVANCE CARE PLANNING 1997 ANNUAL REVIEW OF HM ORDERS 1997 YEARLY PREVENTIVE VISIT 1997 HIV SCREENING 2012 HEPATITIS C SCREENING 2015 PAP 2018 COVID-19 Vaccine ( season) 2023 INFLUENZA VACCINE (#1) 2023 4, 09/29/2014, 08/02/2011, Additional history exists PHQ-2 (once per calendar year) 2023 DTAP/TDAP/TD IMMUNIZATION (7 - Td or Tdap) 03/23/2024 03/23/2014, 09/23/2002, 04/06/1999, Additional history exists HEPATITIS B IMMUNIZATION Completed 998, 01/21/1998, 1997 Pneumococcal Vaccine: Pediatrics (0 to 5 Years) and At-Risk Patients (6 to 64 Years) Aged Out 08/20/2000 No longer eligible based on patient's age to complete this topic IPV IMMUNIZATION Completed 09/23/2002, , 01/21/1998, Additional history exists HPV IMMUNIZATION Completed 07/01/2017, , 03/23/2014 MENINGITIS IMMUNIZATION Aged Out No l onger eligible based on patient's age to complete this topic RSV MONOCLONAL ANTIBODY Aged Out No l onger eligible based on patient's age to complete this topic
--- OUTSIDE RECORDS SUMMARY | 2024-01-19 20:53 | XMS_ITS | Encounter Summary ---
Author Name Unknown Organization [facility] Address [address] [address] Phone Care Team Providers Care Com Writer Name Role Phone Elissa Waggoner DO Primary Care Provider [phone] Encounter Details Date Type Department Care Team (Latest Contact Info) Description 12/23/2023 Travel Social History Tobacco Use Types Packs/Day Years [...] Yes 07/09/2020 documented as of this encounter Plan of Treatment Not on file documented as of this encounter Visit Diagnoses Not on filedocumented in this encounter Care Teams Com Writer Relationship Specialty Start Date End Date Elissa Waggoner DO [address] [place] [address] PCP - General Internal Medicine 12/23/23 documented as of this encounter
--- OUTSIDE RECORDS SUMMARY | 2024-01-19 20:54 | XMS_ITS | Clinical Summary ---
Author Name Unknown Organization [facility] [facility] Address [place], [place] [address] Care Team Providers Care Livestock Breeder Name Role Phone Jelena Higgins Primary Care Provider [phone] Allergies No known active allergies Medications Medication Sig Dispensed Refills Start Date End Date Status dextroamphetamine-amph etamine (ADDERALL XR) 20 mg Extended-Release capsule Take 1 capsule by mouth every morning. 0 Active traZODone (DESYREL) 50 mg tablet Take 1 tablet by mouth at bedtime. 0 Active topiramate (TOPAMAX) 50 mg tablet Take 1 tablet by mouth 2 times daily. 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 Abnormal ECG 10/08/2014 Alcohol abuse, in remission 09/27/2014 Appetite disorder 09/27/2014 Depression, major, recurrent 09/27/2014 Cannabis abuse, in remission 09/27/2014 Panic disorder without agoraphobia 09/27/2014 Self-destructive behavior 09/27/2014 Anxiety ADHD (attention deficit hyperactivity disorder) Encounters Date Type Department Care Team Description 01/17/2024 Lab Requisition [facility] [phone] René Michaels MD from Last 3 Months Family History Relation Name Status Comments Brother Alive Father Alive Mother Alive Social History Tobacco Use Types Packs/Day Years Used Date Smoking Tobacco: Former Smokeless Tobacco: Never Tobacco Cessation:Counseling Given: Yes Comments:E-cig Alcohol Use Standard Drinks/Week Comments No 0 (1 standard drink = 0.6 oz pur e alcohol) Sex and Gender Information Value Date Recorded Sex Assigned at Not on file Gender Identity Not on file Sexual Orientation Not on file Obstetrics History Last Filed Vital Signs Vital Sign Reading Time Taken Comments Blood Pressure 112/72 10/10/2015 3:34 PM PAINT POURER Pulse 66 10/10/2015 3:34 PM PAINT POURER Temperature 36.1 ??C (97 ??F) 09/06/2015 1:30 PM PAINT POURER Respiratory Rate 16 09/07/2015 6:25 PM PAINT POURER Oxygen Saturation 100% 09/06/2015 1:30 PM PAINT POURER Inhaled Oxygen Concentration - - Weight 45.3 kg (99 lb 14.4 oz) 10/10/2015 3:34 P M PAINT POURER Height 160 cm (5' 2.99) 10/10/2015 3:34 PM PAINT POURER Body Mass Index 17.7 10/10/2015 3:34 PM PAINT POURER Plan of Treatment Health Maintenance Due Date Last Done Comments Tdap 2008 Depression screening for age 12+ 2009 HIV for age 15-65 2012 HPV series for age 9-26 (1 - 3-dose series) 2012 BMI (ht and wt on same day) for age 18+ 2015 Hepatitis C screening for ag e 18-79 2015 Tetanus booster 2017 Pap test for age 21-65 2018 COVID-19 vaccine series (2022- season) 2023 Influenza for age 9-49 06/14/2024 Pneumococcal series for age 6-64 Aged Out No longer eligible based on patient's age to complete this topic Advance Directives * Full Code (Latest Code Status on File) Date Activated Date Inactivated Comments 09/06/2015 7:35 AM 09/06/2015 7:02 PM * Full Code Date Activated Date Inactivated Comments 07/31/2015 4:20 PM 08/01/2015 1:43 PM Care Teams Livestock Breeder Relationship Specialty Start Date End Date Jelena Higgins DO [address] [address] PCP - General Family Practice 03/15/23
== END 2024-01-19 21:48 | disposition home or self-care (01) ==
PROVIDERS: Emergency Provider Family Medicine
DX: G89.18 Other acute postprocedural pain (principal); E86.0 Dehydration
CPT/HCPCS: 36415; 80048; 82077; 85025; 94761; 96374; 96375; 99283; 99284; J1100; J2270; J2405; J7030

== ENCOUNTER 2024-01-21 18:11 | Emergency (ER) | payer MEDICAID, SELFPAY ==
[2024-01-21 18:17] VITALS: BP 143/87; PULSE 86; RESP 18; TEMP 36.8; O2SAT 100; BMI 24.1
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
[2024-01-21] MEDS: 0.9 % SODIUM CHLORIDE 1000 ml 1,000 ML IV (20:01)
[2024-01-21] MEDS: dexAMETHasone 10 MG/ML inj IVP (20:01)
[2024-01-21] MEDS: KETOROLAC 15 MG/ML inj IVP (20:01)
--- OUTSIDE RECORDS SUMMARY | 2024-01-21 20:06 | XMS_ITS | Clinical Summary ---
Author Name Unknown Organization [facility] Address [address] [address] Phone Care Team Providers Care Executive Administrator Name Role Phone EdilsonElissa Sylvain DO Primary Care Provider [phone] Allergies Active Allergy Reactions Criticality Noted Date [...] a day. 90 Tablet 3 12/24/2023 Active Opvee 2.7 MG/0.1ML Solution Place 4 mg into one nostril one time for 1 dose.* 0 12/23/2023 Active Nalmefene HCl (Opvee) 2.7 MG/0.1ML Solution [...] class IIa recommendation (JACC. 2014;64(21);e1-76). Session ID: [id number] Endnotes and bibliography available upon request: [email or web address] Weight gain 12/23/2023 Last Assessment & Plan: [...] . You have been in contact with M by report. Osteopenia 04/17/2022 Lactose intolerance 04/06/2022 [...] 02/22/2016 Urticaria, chronic 01/31/2016 Overview: Impression - [id number]: willl tx with medrol dose dash to see results. Is to have an OV soon and can discuss results then. Acne vulgaris 01/19/2016 Overview: Impression - [id number]: -currently taking minocycline and using finacea prn - Refill finacea foam; Impression - 17Uih6210: off minocin to see if this is causing her hair loss; Impression - 95Joh1075: derm to see; Impression - 70Nbv0984: will tx with topical benzyl peroxie with clind and oral minocin. FU in one month Allergic conjunctivitis 01/19/2016 Overview: Impression - [id number]: pataday ordered Migraine 01/19/2016 Overview: Replax caused lightheadedness Tried sumatriptan in past Last Assessment & Plan: Stable with topiramate daily and as needed Fioricet. Chronic constipation 12/26/2015 Overview: Impression - 97Avo8058: Would like to involve GI - may benefit from linzess-type medication. For now, may continue colace BID. Concern regarding impact of AN on this issue. Insomnia 12/26/2015 Last Assessment & Plan: Managed with trazodone for sleep WPW (Pkykt-Fubyojuly-Dhumf syndrome) 04/14/2015 Orthostasis 10/08/2014 ADHD 09/27/2014 Overview: [...] Encounters Date Type Department Care Team Description 01/21/2024 Telephone [facility] [address] [place] [phone] Selena Hernandez LPN Prior Authorization 12/30/2023 Telephone [facility] [address] [place] [phone] Elissa Waggoner, DO Pre-Op 12/23/2023 1:30 PM CDT Office Visit [facility] [address] [facility] [place] [phone] Elissa Waggoner, DO Attention deficit hyperactivity disorder (ADHD), combined type (Primary Dx); Migraine without aura and without status migrainosus, not intractable; Hypothyroidism, unspecified type; Anxiety; Weight gain; Primary insomnia; Screening for cardiovascular condition; Recurrent streptococcal pharyngitis; Current mild episode of major depressive disorder without prior episode (HCC); Preop examination 12/23/2023 Telephone [facility] [address] [place] [address] Helga Magallanes Medication Question; Pharmacy Clarification (Adderall Orders) 12/23/2023 Travel 12/13/2023 Refill [facility] [address] [place] [address] Lorelei Cage RN Refill Request 12/10/2023 Telephone [facility] [address] [place] [phone] Imer Hoffman CMA Medication Problem (Patient requesting Capsules. Requires PA to be denied prior to patient being able to pay out of pocket due to Insurance. ) 12/03/2023 Refill [facility] [address] [place] [phone] Elissa Waggoner, Refill Request from Last 3 Months Immunizations [...] 165.1 cm (5' 5) 10/29/2022 4:14 PM PNEUMATIC TUBE OPERATOR Body Mass Index 23.46 10/29/2022 4:14 PM PNEUMATIC TUBE OPERATOR Plan of Treatment Health Maintenance Due Date [...] Light Yellow, Yellow 12/23/2023 2:23 PM CDT [facility] Urine Appearance Clear Clear 12/23/19 2:23 PM CDT [facility] Urine Specific Alder 1.025 1.005 - 1.030 12/23/2023 2:23 PM CDT [facility] Urine pH 7.5 5.0 - 8.0 12/23/2023 2:23 PM CDT [facility] Urine Leukocyte Esterase Negative Negative 12/23/2023 2:23 PM CDT [facility] Urine Nitrates Negative Negative 12/23/2023 2:23 PM CDT [facility] Urine Protein Negative Negative 12/23/2023 2:23 PM CDT [facility] Urine Glucose Negative Negative 12/23/2023 2:23 PM CDT [facility] Urine Ketones Negative Negative 12/23/2023 2:23 PM CDT [facility] Urine Urobilinogen Normal Normal 12/23/2023 2:23 PM CDT [facility] Urine Bilirubin Negative Negative 2:23 PM CDT [facility] Urine Blood Negative Negative 12/23/2023 2:23 PM CDT [facility] Urine MOVIE MACHINE OPERATOR MID-STREAM URINE SPECIMEN OBTAINED BY CLEAN CATCH PROCEDURE / Unknown Non-blood collection / Unknown 12/23/2023 2:07 PM CDT 12/23/2023 2:07 PM CDT Elissa Narayan Edilson EC URINE ORDERABLES [facility] [address] [place], [place] [address] [phone] * (ABNORMAL) URINE DRUG SCREEN (12/23/2023 2:07 PM CDT) Urine Tetrahydrocannabinol Screen Negative Negative 12/23/2023 5:44 PM [facility] Urine Phencyclidine Screen Negative Negative 12/23/2023 5:44 PM [facility] Urine Cocaine Screen Negative Negative 12/12 5:44 PM [facility] Urine Methamphetamine Screen Qualitative Negative Negative 12/23/2023 5:44 PM [facility] Urine Morphine Screen Qualitative Negative Negative 12/23/2023 5:44 PM [facility] Urine Amphetamines Screen Qualitative Positive(A ) Negative 12/23/2023 5:44 PM [facility] Urine Benzodiazepines Screen Qualitative Negative Negative 12/23/2023 5:44 PM [facility] Urine Tricyclic Antidepressants Screen Qualitative Negative Negative 12/23/2023 5:44 PM [facility] Urine Methadone Screen Qualitative Negative Negative 12/23/2023 5:44 PM [facility] Urine Barbiturates Screen Qualitative Negative Negative 12/23/2023 5:44 PM [facility] Urine Oxycodone Screen Qualitative Negative Negative 12/23/2023 5:44 PM [facility] Urine VOIDED URINE SPECIMEN / Unknown Non-blood collection / Unknown 12/23/2023 2:07 PM CDT 12/23/2023 2:07 PM CDT Narrative [facility] - 12/23/2023 5:44 PM [...] or employment purposes. Elissa HAMILTON URINE ORDERABLES [facility] [address] [place] [address] * COMPREHENSIVE METABOLIC PANEL (12/23/2023 2:07 PM CDT) Sodium 138 135 - 144 mmol/L 12/23/2023 5:10 PM [facility] Potassium 4.2 3.4 - 5.1 mmol/L 12/23/2023 5:10 PM [facility] Chloride 100 98 - 107 mmol/L 12/23/2023 5:10 PM [facility] Carbon Dioxide 28 22 - 30 mmol/L 12/23/2023 5:10 PM [facility] Calcium 9.6 8.6 - 10.3 mg/dL 12/23/2023 5:10 PM [facility] Alkaline Phosphatase 60 38 - 126 U/L 12/23/2023 5:10 PM [facility] Aspartate Aminotransferase 26 14 - 36 U/L 12/23/2023 5:10 PM [facility] Alanine Aminotransferase 21 <35 U/L 12/23/2023 5:10 PM [facility] Glucose 96 74 - 100 mg/dL 12/23/2023 5:10 PM [facility] Blood Urea nitrogen 15 7 - 17 mg/dL 12/23/2023 5:10 PM [facility] Creatinine 0.97 0.52 - 1.04 mg/dL 12/23/2023 5:10 PM CDT [facility] Protein, Total 6.8 6.3 - 8.2 g/dL 12/23/2023 5:10 PM CDT [facility] Albumin 4.2 3.5 - 5.0 g/dL 12/23/2023 5:10 PM CDT [facility] Bilirubin, Total 0.2 0.2 - 1.3 mg/dL 12/23/2023 5:10 PM CDT [facility] Globulin 2.6 1.4 - 4.8 g/dL 12/23/2023 5:10 PM CDT [facility] Anion Gap 10 5 - 15 mmol/L 12/23/2023 5:10 PM CDT [facility] Glomerular Filtration Rate >60 >60 mL/min/1. 73 m*2 12/23/2023 5:10 PM T [facility] Comment:This calculation use s CKD-EPI 2020 equation; it has not been validated in women. Blood BLOOD SPECIMEN / Unknown Venipuncture / Unknown 12/23/2023 2:07 PM CDT 12/23/2023 2:07 PM CDT lEissa Waggoner DO CHEMISTRY ORDERAB LES Performing Organization Address City/State/[facility] Co de Phone Number [facility] [address] [phone] * HEMOGRAM (12/23/2023 2:07 PM CDT) WBC 6.2 4.0 - 11.0 X10*3u/L 12/23/2023 2:31 PM CDT [facility] RBC 4.10 3.80 - 5.20 X10*6/uL 12/23/2023 2:31 PM CDT [facility] HGB 13.3 12.0 - 16.0 g/dl 12/23/2023 2:31 PM CDT [facility] HCT 39.1 35.0 - 47.0 % 12/23/2023 2:31 PM CDT [facility] MCV 95.4 80 - 98 fL 12/23/2023 2:31 PM CDT [facility] MCH 32.4 27.0 - 34.0 pg 12/23/2023 2:31 PM CDT [facility] MCHC 34.0 32 - 36 g/dl 12/23/2023 2:31 PM CDT [facility] PLT 331 150 - 420 X10*3/uL 12/23/2023 2:31 PM CDT [facility] RDW-CV 11.9 11.6 - 14.4 % 12/23/2023 2:31 PM CDT [facility] RDW-SD 40.3 36.5 - 46.3 fL 12/23/2023 2:31 PM CDT [facility] Blood BLOOD SPECIMEN / Unknown Venipuncture / Unknown 12/23/2023 2:07 PM CDT 12/23/2023 2:07 PM CDT Elissa Waggoner DO HEMATOLOGY ORDERA BLES [facility] [address] [place] [id number] [phone] * (ABNORMAL) LAMOTRIGINE (12/23/2023 2:07 PM CDT) Lamotrigine <0.2(L) 3.0 - 15.0 mcg/mL 12/24/2023 12:25 PM CDT [facility] Comment: ADDITIONAL INFORMATION This test was developed and its performance characteristics determined by [facility] in a manner consistent with CLIA requirements. This test has not been cleared or approved by the U.S. Food and Drug Administration. Test Performed by: [facility] [address] [place] [address] Senior Accounting Clerk: Gregorio Morel M.D. Ph.D.; CLIA# [id number] Blood BLOOD SPECIMEN / Unknown Venipuncture / Unknown 12/23/2023 2:07 PM CDT 12/23/2023 2:07 PM CDT Elissa Waggoner DO [facility] SEND OUT ORDE RABLES Performing Organization Address City/[facility]/ZIP Co de Phone Number [facility] [address] [phone] * THYROID SCREEN WITH REFLEX (12/23/2023 2:07 PM CDT) Thyroid Stimulating hormone 0.74 0.47 - 4.68 mIU/L 12/23/2023 5:41 PM CDT [facility] Blood BLOOD SPECIMEN / Unknown Venipuncture / Unknown 12/23/2023 2:07 PM CDT 12/23/2023 2:07 PM CDT Elissa Waggoner DO CHEMISTRY ORDERAB LES ABN Performing Organization Address City/[facility]/ZIP Co de Phone Number [facility] [address] [place], [place] [id number] [phone] * (ABNORMAL) LIPID PANEL (12/23/2023 2:07 PM CDT) Cholesterol 176 100 - 200 mg/dL 12/23/2023 5:24 PM CDT [facility] Triglycerides 175(H) <150 mg/dL 12/23/2023 5:24 PM CDT [facility] HDL Cholesterol, Measured 100(H) 45 - 60 mg/dL 12/23/2023 5:24 PM CDT [facility] Non-HDL Cholesterol 76 <130 mg/dL 12/23/2023 5:24 PM CDT [facility] LDL Cholesterol, Calculated 41 <130 mg/dL 12/23/2023 5:24 PM CDT [facility] Blood BLOOD SPECIMEN / Unknown Venipuncture / Unknown 12/23/2023 2:07 PM CDT 12/23/2023 2:07 PM CDT Narrative [facility] - 12/23/2023 5:24 PM [...] CHEMISTRY ORDERAB LES ABN Performing Organization Address City/State/[facility] Co de Phone Number [facility] [address] [phone] from Last 3 Months Care Teams Executive Administrator Relationship Specialty Start Date End Date Elissa Waggoner DO [address] [address] PCP - General Internal Medicine 12/23/23
--- OUTSIDE RECORDS SUMMARY | 2024-01-21 20:06 | XMS_ITS | Encounter Summary ---
Author Name Unknown Organization [facility] [employer] [facility] Address [address] [address] Phone Care Team Providers Care Level Designer Name Role Phone Unavailable Primary Care Provider Unavailabl e Reason for Visit * Reason Onset Date Comments Refill Request 12/13/2023 Encounter Details Date Type Department Care Team (Late st Contact Info) Description 12/13/2023 Refill [facility] [address] [place] [phone] Lorelei Cage RN Refill Request Social [...] the patient's home address by MARIJA Walters. ORT MANAGER * Telephone Encounter - Lorelei Cage RN [...] Adderall 30mg XR Dx: ADHD Per [place] BUFFET ATTENDANT Last Date Dispensed: 11/16/23 on both Quantity: #30 on both Days Supply: #30 on both Last Med Check: 06/11/23 DOA testin06/11/23 ORT MANAGER documented in this encounter Plan of Treatment [...]
--- OUTSIDE RECORDS SUMMARY | 2024-01-21 20:06 | XMS_ITS | Referral Summary ---
Author Name Unknown Organization [facility] Address [address] [place] [address] Care Team Providers Care Bottom Painter Name Role Phone Unavailable Primary Care Provider [...]
--- OUTSIDE RECORDS SUMMARY | 2024-01-21 20:06 | XMS_ITS | Clinical Summary ---
Author Name Unknown Organization [facility] Address [address] [place] [address] Care Team Providers Care Utility Lineman Name Role Phone Mariella De Anda APRN, NITHIN Primary Care Provid er Source Comments You are receiving this document as you are listed as the primary care provider,follow-up provider, or the patient has been referred to you for consultation.This is in compliance with the Medicare andOhio[facility] Hospitalca[facility] EHR Incentive Program,which states Providers who transition their patient to another setting of careor provider of care or refers their patient to another provider of care shouldprovide summary care record for each transition of care or referral. Cloud[employer] Allergies Active Allergy Reactions Criticality Noted Date Comments Amoxicillin 09/15/2019 Latex 09/15/2019 Review Contrast Media 1997 PN: LW CM1: CONTRAST- nka Reaction : Review Food Intolerance 05/09/2010 PN: LW FI1: nka Medications Medication Sig Dispensed Refills Start Date End Date Status topiramate (TOPAMAX) 50 MG tabletIndications:FLAVIA ANTHONY SatJul 18, 2015 2:02 PM Received from: External Pharmacy Indications: PN: FLAVIA FLORES SatJul 18, 2015 2:02 PM Received from: External Pharmacy 10 06/20/2015 Active amphetamine-dextroamp hetamine (ADDERALL XR) 20 MG 24 hour release capsuleIndications:FLAVIA DAY SatJul 18, 2015 2:02 PM Received from: External Pharmacy 10 mg. Take 1/2 tab Indications: FLAVIA FLORES Mon Jul 18, 2015 2:02 PM Received from: External Pharmacy 0 07/03/2015 Active eletriptan (RELPAX) 20 MG tablet Take 1 Tablet (20 mg) by mouth as needed for Migraine. Take at onset of migraine. May repeat in 2 hours if needed. Max 2/day, 4 days per month. Active levothyroxine (SYNTHROID) 50 MCG tablet Take 1 Tablet (50 mcg) by mouth daily. Active Wcuegmgrke-IKRI-Pdpow ine 50-300-40 MG CAPS TAKE ONE CAPSULE [...] Overview: Major depressive disorder, recurrent episode, unspecified ([facility]) Self-injurious behavior 09/27/2014 School avoidance 09/27/2014 Immunizations Name Administration Dates Next Due 4vHPV (Gardasil) 09/29/2014,03/23/2014 9vHPV (Gardasil 9) 03/15/2020,07/01/2017 DTaP 09/23/2002, 9,04/01/1998,1997,1997 Flu Vac (3+ yrs) 09/29/2014,11/09/2002, 2 HepA Ped/Adol (1-18 yrs) 06/01/2008,08/01/2007 HepB, Unspecified Formulation 07/01/1998, 998,1997 Hib, Unspecified Formulation 04/06/1999, 04/01/1998,01/21/1998,1997 IPV (Polio) 09/23/2002, 8,01/21/1998,1997 Influenza IIV4 (Quadrivalent ) 0.5mL (76863) 09/29/2014,08/02/2011,10/11/2010,2008,07/29/2008,08/01/2007,11/06/2006 Influenza Vaccine TIV, Nasal 08/02/2011, 10/11/2010,05/20/2009,2007,08/01/2007,11/06/2006 [...] CDT Respiratory Rate 16 10/19/2014 5:13 PM MORTGAGE SALES MANAGER Oxygen Saturation 100% 10/19/2014 8:30 PM MORTGAGE SALES MANAGER Inhaled Oxygen Concentration - - Weight 58.4 [...] AM CDT) Case Report Pap ? Case: [id number] ? Authorizing Provider: ??Mariella De Anda, RE, ??Collected: ? 06/03/2023 0844 ? DIRECTOR HOUSEKEEPING ? Ordering Location: ? [facility] ?Received: ?06/03/2023 0854 ? Obstetrics/Gyneco logy ? First Screen: ?Alexia Jolly ? Specimen: ?Pap Test, Routine, Cervix/Endocervix ? 06/12/2023 1:12 PM CDT [facility] Pap Specimen Adequacy Satisfactory for evaluation, endocervical/salmon sformation zone component present. 06/12/2023 1:12 PM CDT [facility] Pap Interpretation (NILM) Negative for intraepithelial lesion or malignancy. 06/12/2023 1:12 PM CDT [facility] Pap Other Findings Fungal organisms morphologically consistent with Carolyne spp. 06/12/2023 1:12 PM CDT [facility] Pap Disclaimer The Pap test is a screening test to aid in the detection of cervical and vaginal cancers and their precursor lesions. It is not a diagnostic procedure and should not be used as the sole means of detecting malignancy. Both false-positive and false-negative results may occur. 06/12/2023 1:12 PM CDT [facility] Gross Description The specimen is received in SurePath fixative and properly labeled. 1 Pap-stained SurePath slide is prepared. 06/12/2023 1:12 PM CDT [facility] Embedded Images 1:12 PM CDT [facility] Other Specimen Type ENTIRE ENDOCERVIX / Unknown 06/03/2023 8:44 AM CDT 06/03/2023 8:54 AM CDT Comment:LMP: No LMP recorded . (Menstrual status: Irregular). Mariella De Anda APRN, CNP LAB PATHOLOG Y Performing Organization Address City/State/[facility] Co de Phone Number [facility] [address] * Chlamydia & GC (14 Years and Older): Vagina (06/03/2023 8:44 AM CDT) Chlamydia Trachomatis STD Not Detected Not Detected 06/03/2023 7:30 PM CDT [facility] N. gonorrhoeae STD Not Detected Not Detected 06/03/2023 7:30 PM CDT [facility] Swab STD SPECIMEN FROM VAGINA / Unknown Non-blood Collection / Unknown 06/03/2023 8:44 AM CDT 06/03/2023 8:51 AM CDT [facility] - 06/03/2023 7:30 PM CDT Test performed by Slagger Mediated Amplification (TMA). Mariella De Anda APRN, CNP LAB_1 [employer] [address] [address], [facility] [place] [phone] from Last 3 Months or Most Recently Relevant to Health Maintenance Advance Directives * Full Code (Latest Code Status on File) Date Activated Date Inactivated Comments 10/19/2014 9:37 PM 10/26/2014 4:08 PM * Full Code Date Activated Date Inactivated Comments 10/08/2014 1:32 PM 10/19/2014 9:35 PM Care Teams Utility Lineman Relationship Specialty Start Date End Date Mariella De Anda APRN, NITHIN [address] [facility] [address] [phone] PCP - General Nurse Practitioner 01/26/21
--- OUTSIDE RECORDS SUMMARY | 2024-01-21 20:06 | XMS_ITS | Encounter Summary ---
Author Name Unknown Organization [facility] [employer] [facility] Address [address] [address] Phone Care Team Providers Care Sourcing Assistant Name Role Phone Elissa Waggoner DO Primary Care Provider [phone] Encounter Details Date Type Department Care Team [...] on filedocumented in this encounter Care Teams Sourcing Assistant Relationship Specialty Start Date End Date Elissa Waggoner DO [address] [address] PCP - General Internal Medicine 12/23/23 documented as of this encounter
--- OUTSIDE RECORDS SUMMARY | 2024-01-21 20:06 | XMS_ITS | Encounter Summary ---
Author Name Unknown Organization [facility] [employer] [facility] Address [address] [address] Phone Care Team Providers Care Antique Finisher Name Role Phone Edilson Elissa M DO Primary Care Provider [phone] Reason for Visit * Reason Onset Date Comments Medication Question 12/23/2023 Pharmacy Clarification 12/23/2023 Adderall Orders Encounter Details Date Type Department Care Team ([facility] Contact Info) Description 12/23/2023 Telephone [facility] [address] [place] [address] Helga Magallanes Medication Question; Pharmacy [...] Brand Name (LYNN). 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 Quantity: #30 for both. Days Supply: 30 days for both. Last Med Check: 12/23/23 DOA testin12/23/23 * Telephone Encounter - Helga Magallanes - 12/23/2023 2:23 PM CDT [facility] is requesting a call back regarding [...] documented as of this encounter Care Teams Antique Finisher Relationship Specialty Start Date End Date Elissa Waggoner DO [address] [address] PCP - General Internal Medicine 12/23/23 documented as of this encounter
--- OUTSIDE RECORDS SUMMARY | 2024-01-21 20:06 | XMS_ITS | Clinical Summary ---
Author Name Unknown Organization [facility] Address [address] [place] [address] Care Team Providers Care Parking Lot Laborer Name Role Phone Unavailable Primary Care Provider [...]
--- OUTSIDE RECORDS SUMMARY | 2024-01-21 20:06 | XMS_ITS | Encounter Summary ---
Author Name Unknown Organization [facility] Address [address] [address] Phone Care Team Providers Care Seed Cutter Name Role Phone Elissa Waggoner DO Primary Care Provider [phone] Elissa Waggoner DO Primary Care Provider [phone] Reason for Visit * Reason Comments Refill Request Encounter Details Date Type Department Care Team (Late st Contact Info) Description 05/14/2023 Refill [facility] [address] [place] [phone] Elissa Waggoner, DO [address] [place] [address] Refill Request Social History Tobacco Use Types [...] and 30 mg Er Dx:ADD 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 DOA testin10/30/22 documented in this encounter [...] documented as of this encounter Care Teams Seed Cutter Relationship Specialty Start Date End Date Elissa Waggoner DO [address] [address] PCP - General Internal Medicine 10/29/22 05/15/23 Elissa Waggoner DO [address] [address] PCP - General Internal Medicine 12/23/23 documented as of this encounter
--- OUTSIDE RECORDS SUMMARY | 2024-01-21 20:06 | XMS_ITS | Clinical Summary ---
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 Abnormal ECG 10/08/2014 Alcohol abuse, in remission 09/27/2014 Appetite disorder 09/27/2014 Depression, major, recurrent 09/27/2014 Cannabis abuse, in remission 09/27/2014 Panic disorder without agoraphobia 09/27/2014 Self-destructive behavior 09/27/2014 Anxiety ADHD (attention deficit hyperactivity disorder) Encounters Date Type Department Care Team Description 01/17/2024 Lab Requisition [facility] [phone] René Michaels MD from Last 3 Months [...] Comments Blood Pressure 112/72 10/10/2015 3:34 PM CONING MACHINE OPERATOR Pulse 66 10/10/2015 3:34 PM CONING MACHINE OPERATOR Temperature 36.1 ??C (97 ??F) 09/06/2015 1:30 PM CONING MACHINE OPERATOR Respiratory Rate 16 09/07/2015 6:25 PM CONING MACHINE OPERATOR Oxygen Saturation 100% 09/06/2015 1:30 PM CONING MACHINE OPERATOR Inhaled Oxygen Concentration - - Weight 45.3 kg (99 lb 14.4 oz) 10/10/2015 3:34 P M CONING MACHINE OPERATOR Height 160 cm (5' 2.99) 10/10/2015 3:34 PM CONING MACHINE OPERATOR Body Mass Index 17.7 10/10/2015 3:34 PM CONING MACHINE OPERATOR Plan of Treatment Health Maintenance Due [...] Procedure Name Priority Date/Time Associated Diagnosis Comments LAB TRACKING EVENT Routine 01/17/2024 11 :19 AM CDT PATH TISSUE EXAM Routine 01/17/2024 11:1 3 AM CDT from Last 3 Months Results * LAB TRACKING EVENT (01/17/2024 11:19 AM CDT) Other (Other) Client Collect / Unknown 01/17/2024 11:19 AM CDT 01/17/2024 10:29 PM CDT René Michaels MD LAB BILL ONLY [facility] [address] [place] [address], [place] * PATH TISSUE EXAM (01/17/2024 11:13 AM CDT) Case Report Pathology Report ?Case: [id number] ? Authorizing Provider: ??René Michaels, ??Collected: ? 01/17/2024 111 ? MD ? Ordering Location: ? [facility] ?Received: ?01/18/2024 06 ? Pathologist: ? Kristine Sorto ? MD Eileen ? Specimens: ?? A) - Right Tonsil ? B) - Left Tonsil ? 01/20/2024 2:19 PM CDT [facility] Final Diagnosis A) TONSIL, RIGHT, TONSILLECTOMY: 1. Benign lymphoid hyperplasia 2. Negative for atypia or malignancy B) TONSIL, LEFT, TONSILLECTOMY: 1. Benign lymphoid hyperplasia 2. Negative for atypia or malignancy 01/20/2024 2:19 PM CDT [facility] Clinical Information Chronic tonsillitis 01/20/2024 2:19 PM CDT [facility] Gross Description A) Received in formalin, labeled with the patient's name and right tonsil, is a tonsillectomy specimen consisting of a single 2.4 x 1.5 x 1.5 cm palatine tonsil characterized by pink-miranda convoluted shaggy focally cauterized resection margin cerebriform cut surfaces. ??Sectioning reveals pink-miranda minimally focally hyperemic cut surfaces with no distinct solid mass lesions or areas of hemorrhage/necros is. ??A automotive sales representative section is submitted in 1 cassette. B) Received in formalin, labeled with the patient's name and left tonsil, is a tonsillectomy specimen 2.5 x 1.5 x 1.6 cm palatine tonsil characterized by glistening pink convoluted mucosa and miranda focally cauterized shaggy resection margin. ??Sectioning reveals pink-miranda cerebriform cut surfaces with no distinct solid mass lesions or areas of hemorrhage/necros is. ??A automotive sales representative section is submitted in 1 cassette. ADW 01/18/2024 01/20/2024 2:19 PM CDT [facility] Microscopic Description The final diagnosis is based on microscopic examination of appropriate sections of all specimens. 01/20/2024 2:19 PM CDT [facility] Additional Information Interpreted at [facility] - [address], [place] [address] 01/20/2024 2:19 PM CDT [facility] Other (Right Tonsil) 01/17/2024 11:13 AM CDT 01/18/2024 6:21 AM CDT Specimen (specimen) (Left Tonsil) 01/17/2024 11:17 AM CDT 01/18/2024 6:21 AM CDT René Michaels MD PATHOLOGY/CYT OLOGY [facility] [address] [place] [address], [place] from Last 3 Months Advance Directives * Full Code (Latest Code Status on File) Date Activated Date Inactivated Comments 09/06/2015 7:35 AM 09/06/2015 7:02 PM * Full Code Date Activated Date Inactivated Comments 07/31/2015 4:20 PM 08/01/2015 1:43 PM Care Teams Java Lead Relationship Specialty Start Date End Date Jelena Higgins DO [address] [address] PCP - General Family Practice 03/15/23
--- OUTSIDE RECORDS SUMMARY | 2024-01-21 20:06 | XMS_ITS | Encounter Summary ---
Author Name Unknown Organization [facility] [employer] [facility] Address [address] [address] Phone Care Team Providers Care Tow Truck Driver Name Role Phone Elissa Waggoner DO Primary Care Provider [phone] Reason for Visit * Reason Onset Date Comments Pre-Op 12/30/2023 Encounter Details Date Type Department Care Team ([facility] Contact Info) Description 12/30/2023 Telephone [facility] C[facility] [address] [place] [phone] Elissa Waggoner, [address] [place], [place] [address] Pre-Op Social History Tobacco Use Types Packs/Day [...] patient to have surgery on 01/17/2024 at [facility]. Patient stated it was too far for her to drive and will go somewhere else and then hung up on telephone operator receptionist Idalmis Shannon. * Telephone Encounter - Elissa Waggoner DO - 01/16/2024 12:19 PM CDT This was an addended office note. If note not acceptable, will need to come in for exam. * Telephone Encounter - Madison Urbano - 01/16/2024 11:53 AM CDT [facility] is calling because the Preop didn't include a heart and lung assessment on it. That's a requirement. * Telephone Encounter - Selena Hernandez LPN - 12/31/2023 10:59 AM CDT Faxed recent note with addendum to [place] [facility] for ENT * Telephone Encounter - Elissa Waggoner DO - 12/31/2023 9:38 AM CDT Note modified. Please fax to ENT/surgery center * Telephone Encounter - Helga Spence - 12/30/2023 11:23 AM CDT Patient called in to request Dr. Waggoner approve her ok to have surgery January 16 at [facility] for a tonsillectomy. She said she just had a medication check up with her on 12/22 and would like to know if this is okay to suffice for this. Routing to nursing for review documented in this encounter Plan of Treatment Not on file documented as of this encounter Visit Diagnoses Not on filedocumented in this encounter Care Teams Tow Truck Driver Relationship Specialty Start Date End Date Elissa Waggoner DO [address] [address] PCP - General Internal Medicine 12/23/23 documented as of this encounter
--- OUTSIDE RECORDS SUMMARY | 2024-01-21 20:06 | XMS_ITS | Encounter Summary ---
Author Name Unknown Organization [facility] [employer] [facility] Address [address] [address] Phone Care Team Providers Care Branch Associate Teller Name Role Phone Unavailable Primary Care Provider Unavailabl e Reason for Visit * Reason Comments Refill Request Encounter Details Date Type Department Care Team (Late st Contact Info) Description 12/03/[address] [facility] MEDICINE [address] [place] [address] Elissa Waggoner, DO [address] [place], [place] [phone] Refill Request Social History Tobacco Use Types [...] back. Clinic phone number provided. Thank you. R TECHNICIAN * Telephone Encounter - Hussein Mackey RN [...] is aware. No further questions. Thank you. R TECHNICIAN * Telephone Encounter - Hussein Mackey RN [...] placed on hold again and call ended. R TECHNICIAN * Telephone Encounter - Destiney Son - 12/05/2023 1:47 PM CST Patient calling regarding inquiring on status of prescription. Patient stated that the script needsto be denied in order for her insurance to cover it, which does not make sense to technical publications writer. Patient is currently experiencing the worse migraine of my life. Routing to nursing for review. R TECHNICIAN * Telephone Encounter - Hussein Mackey RN - 12/05/2023 11:12 AM RADAR TECHNICIAN Called pharmacy to review request for order due to system issue with receiving Rx that was sent on 12/04/23 for Fioricet. Called and provided information for pharmacy. Confirmed order. No further questions. Thank you. R TECHNICIAN * Telephone Encounter - Destiney Son - 12/05/2023 9:58 AM CST Pharmacy states that their system has been down and requesting a return call with verbal rx becausepatient is in pharmacy and upset that she cannot receive the script. Routing to nursing for review. 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
--- OUTSIDE RECORDS SUMMARY | 2024-01-21 20:06 | XMS_ITS | Encounter Summary ---
Author Name Unknown Organization [facility] [employer] [facility] Address [address] [address] Phone Care Team Providers Care Procedure Writer Name Role Phone Unavailable Primary Care Provider Unavailabl e Reason for Visit * Reason Onset Date Comments Medication Problem 12/10/2023 Patient reque sting Capsules. Requires PA to be denied prior to patient being able to pay out of pocket due to Insurance. Encounter Details Date Type Department Care Team (Late st Contact Info) Description 12/10/2023 Telephone [facility] [address] [place] [address] Imer Hoffman, RAFA Medication Problem [...] Sent to pharmacy by fax. Thank you. SFORMATION ARCHITECT * Telephone Encounter - Lorelei Cage RN - 12/16/2023 10:33 AM TRANSFORMATION ARCHITECT PA denied. We are not approving your request because: - Documentation has not shown that you have tried and failed dhmdxhcolj-ywfeezyepaswi-bcennxnl 50 mg-325 mg-40 mg tablets. We realize this may not be the answer you expected. We made this decision based on: - Information from your doctor - Your [facility] Drug List Coverage Criteria for butalbitalacetaminophen- caffeine 50 mg-300 mg-40 mg capsules SFORMATION ARCHITECT * Telephone Encounter - Lorelei Cage RN - 12/13/2023 4:52 PM CST PA started through Epic - Questions answered. Awaiting a response. SFORMATION ARCHITECT * Telephone Encounter - Nico Mckenzie MD - 12/13/2023 4:45 PM CST It printed out.. 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 Pharmacy states to continue pursuing PA for capsules. Ok to call pharmacy if any questions. Thank you SFORMATION ARCHITECT * Telephone Encounter - Lorelei Cage RN - 12/12/2023 8:[address] Mckenzie - please see the pended prescription for the formulary alternative to what was originally prescribed. Please sign as appropriate. SFORMATION ARCHITECT * Telephone Encounter - Imer Hoffman CMA - 12/10/2023 8:27 AM CST PA started via Epic. SFORMATION ARCHITECT documented in this encounter Plan of Treatment [...]
--- OUTSIDE RECORDS SUMMARY | 2024-01-21 20:06 | XMS_ITS | Encounter Summary ---
Author Name Unknown Organization [facility] Address [address] [address] Phone Care Team Providers Care Electronic Security Technician Name Role Phone Flora Waggoner DO Primary Care Provider [phone] Reason for Visit * Reason Comments Follow Up Encounter Details Date Type Department Care Team (Latest Contact Info) Description 12/23/2023 1:30 PM CDT Office Visit [facility] [address] [place] [phone] Flora Waggoner DO [address] [place], [place] [id number] Attention deficit hyperactivity disorder (ADHD), combined type [...] Body Mass Index 23.46 10/29/2022 4:14 PM 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 Do not crush. - rilonunabf-sipylrvmukdwm-bwyqpmop (Fioricet, Esgic) 50-325-40 MG oral tablet; Take [...] class IIa recommendation (JACC. 2014;64(21);e1-76). Session ID: [id number] Endnotes and bibliography available upon request: [email or web address] Other orders - Nalmefene HCl (Opvee) 2.7 MG/0.1ML Solution; Place 4 mg into one nostril one time for 1 dose. If your provider has ordered a radiology test that needs to be scheduled at any of the [place] facilities, for your convenience and to offer you the best service, we ask that you contact the [place] [facility] directly at [phone]. If you have an Ultrasound or DEXA order from [facility], those are performed directly by them. Please call [phone] ([place]) or [phone] ([place]) to schedule those tests. documented in this [...] from the original note were not included. [place] Office Visit Subjective Helga is a 28 [...] been very frustrating. 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 Struggling with recurrently tonsillitis [...] mouth at bedtime. Do not crush. - sfgnbfyxay-cxflhbtxgrbja-zwcbgvps (Fioricet, Esgic) 50-325-40 MG oral tablet; Take [...] class IIa recommendation (JACC. 2014;64(21);e1-76). Session ID: [id number] Endnotes and bibliography available upon request: [email or web address] Other orders - Nalmefene HCl (Opvee) 2.7 [...] class IIa recommendation (JACC. 2014;64(21);e1-76). Session ID: [id number] Endnotes and bibliography available upon request: [email or web address] * Assessment & Plan Note - Flora Waggoner DO - 12/23/2023 3:32 PM CDT Associated Problem(s): Current mild episode of major depressive disorder without prior episode (HCC) Not currently on lamotrigine. Continues bupropion XL Previously established with therapist * Assessment & Plan Note - Folra Waggoner DO - 12/23/2023 3:31 PM CDT [...] Screen Negative Negative 12/23/2023 5:44 PM CDT [facility] Urine Phencyclidine Screen Negative Negative 12/23/2023 5:44 PM CDT [facility] Urine Cocaine Screen Negative Negative 12/12 5:44 PM CDT [facility] Urine Methamphetamine Screen Qualitative Negative Negative 12/23/2023 5:44 PM [facility] Urine Morphine Screen Qualitative Negative Negative 12/23/2023 5:44 PM CDT [facility] Urine Amphetamines Screen Qualitative Positive(A ) Negative 12/23/2023 5:44 PM CDT [facility] Urine Benzodiazepines Screen Qualitative Negative Negative 12/23/2023 5:44 PM CDT [facility] Urine Tricyclic Antidepressants Screen Qualitative Negative Negative 12/23/2023 5:44 PM [facility] Urine Methadone Screen Qualitative Negative Negative 12/23/2023 5:44 PM [facility] Urine Barbiturates Screen Qualitative Negative Negative 12/23/2023 5:44 PM [facility] Urine Oxycodone Screen Qualitative Negative Negative 12/23/2023 5:44 PM T [facility] Urine VOIDED URINE SPECIMEN / Unknown Non-blood collection / Unknown 12/23/2023 2:07 PM CDT 12/23/2023 2:07 PM CDT Narrative [facility] - 12/23/2023 5:44 PM [...] or employment purposes. Flora HAMILTON URINE ORDERABLES [facility] [address] [place] [address], [facility] [phone] * URINALYSIS, REFLEX TO MICROSCOPIC (12/23/2023 2:07 PM CDT) UA Color Yellow Light Yellow, Yellow 12/23/2023 2:23 PM CDT [facility] Urine Appearance Clear Clear 12/23/19 2:23 PM CDT [facility] Urine Specific [place] 1.025 1.005 - 1.030 12/23/2023 2:23 PM T [facility] Urine pH 7.5 5.0 - 8.0 12/23/2023 2:23 PM CDT [facility] Urine Leukocyte Esterase Negative Negative 12/23/2023 2:23 PM CDT [facility] Urine Nitrates Negative Negative 12/23/2023 2:23 PM CDT [facility] Urine Protein Negative Negative 12/23/2023 2:23 PM CDT [facility] Urine Glucose Negative Negative 12/23/2023 2:23 PM CDT [facility] Urine Ketones Negative Negative 12/23/2023 2:23 PM CDT [facility] Urine Urobilinogen Normal Normal 12/23/2023 2:23 PM CDT [facility] Urine Bilirubin Negative Negative 2:23 PM CDT [facility] Urine Blood Negative Negative 12/23/2023 2:23 PM CDT [facility] Urine GRAIN CLEANER MID-STREAM URINE SPECIMEN OBTAINED BY CLEAN CATCH PROCEDURE / Unknown Non-blood collection / Unknown 12/23/2023 2:07 PM CDT 12/23/2023 2:07 PM CDT Flora Waggoner DO EC URINE ORDERABLES [facility] [address] [place], [place] [address] [phone] * (ABNORMAL) LIPID PANEL (12/23/2023 2:07 PM CDT) Cholesterol 176 100 - 200 mg/dL 12/23/2023 5:24 PM CDT [facility] Triglycerides 175(H) <150 mg/dL 12/23/2023 5:24 PM CDT [facility] HDL Cholesterol, Measured 100(H) 45 - 60 mg/dL 12/23/2023 5:24 PM CDT [facility] Non-HDL Cholesterol 76 <130 mg/dL 12/23/2023 5:24 PM CDT [facility] LDL Cholesterol, Calculated 41 <130 mg/dL 12/23/2023 5:24 PM CDT [facility] Blood BLOOD SPECIMEN / Unknown Venipuncture / Unknown 12/23/2023 2:07 PM CDT 12/23/2023 2:07 PM CDT Narrative [facility] - 12/23/2023 5:24 PM [...] CHEMISTRY ORDERAB LES ABN Performing Organization Address City/[facility] Co de Phone Number [facility] [address] [phone] * THYROID SCREEN WITH REFLEX (12/23/2023 2:07 PM CDT) Thyroid Stimulating hormone 0.74 0.47 - 4.68 mIU/L 12/23/2023 5:41 PM CDT [facility] Blood BLOOD SPECIMEN / Unknown Venipuncture / Unknown 12/23/2023 2:07 PM CDT 12/23/2023 2:07 PM CDT Flora Waggoner DO EC CHEMISTRY ORDERAB LES ABN Performing Organization Address [facility] de Phone Number [facility] [address] [phone] * COMPREHENSIVE METABOLIC PANEL (12/23/2023 2:07 PM CDT) Sodium 138 135 - 144 mmol/L 12/23/2023 5:10 PM CDT [facility] Potassium 4.2 3.4 - 5.1 mmol/L 12/23/2023 5:10 PM CDT [facility] Chloride 100 98 - 107 mmol/L 12/23/2023 5:10 PM [facility] Carbon Dioxide 28 22 - 30 mmol/L 12/23/2023 5:10 PM [facility] Calcium 9.6 8.6 - 10.3 mg/dL 12/23/2023 5:10 PM [facility] Alkaline Phosphatase 60 38 - 126 U/L 12/23/2023 5:10 PM [facility] Aspartate Aminotransferase 26 14 - 36 U/L 12/23/2023 5:10 PM [facility] Alanine Aminotransferase 21 <35 U/L 12/23/2023 5:10 PM [facility] Glucose 96 74 - 100 mg/dL 12/23/2023 5:10 PM [facility] Blood Urea nitrogen 15 7 - 17 mg/dL 12/23/2023 5:10 PM [facility] Creatinine 0.97 0.52 - 1.04 mg/dL 12/23/2023 5:10 PM [facility] Protein, Total 6.8 6.3 - 8.2 g/dL 12/23/2023 5:10 PM [facility] Albumin 4.2 3.5 - 5.0 g/dL 12/23/2023 5:10 PM [facility] Bilirubin, Total 0.2 0.2 - 1.3 mg/dL 12/23/2023 5:10 PM [facility] Globulin 2.6 1.4 - 4.8 g/dL 12/23/2023 5:10 PM [facility] Anion Gap 10 5 - 15 mmol/L 12/23/2023 5:10 PM [facility] Glomerular Filtration Rate >60 >60 mL/min/1. 73 m*2 12/23/2023 5:10 PM [facility] Comment:This calculation use s CKD-EPI 2020 equation; it has not been validated in women. Blood BLOOD SPECIMEN / Unknown Venipuncture / Unknown 12/23/2023 2:07 PM CDT 12/23/2023 2:07 PM CDT Flora HAMILTON CHEMISTRY ORDERAB LES [facility] [address] [place] [address] [phone] * HEMOGRAM (12/23/2023 2:07 PM CDT) WBC 6.2 4.0 - 11.0 X10*3u/L 12/23/2023 2:31 PM CDT [facility] RBC 4.10 3.80 - 5.20 X10*6/uL 12/23/2023 2:31 PM CDT [facility] HGB 13.3 12.0 - 16.0 g/dl 12/23/2023 2:31 PM CDT [facility] HCT 39.1 35.0 - 47.0 % 12/23/2023 2:31 PM CDT [facility] MCV 95.4 80 - 98 fL 12/23/2023 2:31 PM CDT [facility] MCH 32.4 27.0 - 34.0 pg 12/23/2023 2:31 PM CDT [facility] MCHC 34.0 32 - 36 g/dl 12/23/2023 2:31 PM CDT [facility] PLT 331 150 - 420 X10*3/uL 12/23/2023 2:31 PM CDT [facility] RDW-CV 11.9 11.6 - 14.4 % 12/23/2023 2:31 PM CDT [facility] RDW-SD 40.3 36.5 - 46.3 fL 12/23/2023 2:31 PM CDT [facility] Blood BLOOD SPECIMEN / Unknown Venipuncture / Unknown 12/23/2023 2:07 PM CDT 12/23/2023 2:07 PM CDT Flora HAMILTON HEMATOLOGY ORDERA BLES Performing Organization Address [facility]/ZIP Co de Phone Number [facility] [address] [place], [place] [address] [phone] * (ABNORMAL) LAMOTRIGINE (12/23/2023 2:07 PM CDT) Lamotrigine <0.2(L) 3.0 - 15.0 mcg/mL 12/24/2023 12:25 PM CDT [facility] Comment: ADDITIONAL INFORMATION This test was developed and its performance characteristics determined by [facility] in a manner consistent with CLIA requirements. This test has not been cleared or approved by the U.S. Food and Drug Administration. Test Performed by: [facility] - [address] [address] Senior Policy Advisor: Gregorio Morel M.D. Ph.D.; CLIA# [id number] Blood BLOOD SPECIMEN / Unknown Venipuncture / Unknown 12/23/2023 2:07 PM CDT 12/23/2023 2:07 PM CDT Flora Sylvain Waggoner DO LAB SEND OUT REAGAN LOONEY Performing Organization Address [facility] Co de Phone Number [facility] [address] [place] [address] [phone] documented in this encounter Visit Diagnoses Diagnosis [...] 12/23/2023 added in this encounter Care Teams Electronic Security Technician Relationship Specialty Start Date End Date Flora Waggoner DO [address] [address] PCP - General Internal Medicine 12/23/23 documented as of this encounter
--- OUTSIDE RECORDS SUMMARY | 2024-01-21 20:06 | XMS_ITS | Encounter Summary ---
Author Name Unknown Organization [facility] Address [address] [address] Phone Care Team Providers Care Donor Services Team Leader Name Role Phone Elissa Waggoner DO Primary Care Provider [phone] Reason for Visit * Reason Onset Date Comments Prior Authorization 01/21/2024 Encounter Details Date Type Department Care Team (Late st Contact Info) Description 01/21/[address] [facility] [address] [place] [phone] Selena Hernandez LPN Prior Authorization Social History Tobacco Use Types Packs/Day Years [...] encounter Miscellaneous Notes * Telephone Encounter - Selena Hernandez LPN - 01/21/2024 4:25 PM CDT PA for Opvee * Telephone Encounter - Selena Hernandez LPN - 01/21/2024 4:22 PM CDT PA for Opvee documented in this encounter Plan of Treatment Not on file documented as of this encounter Visit Diagnoses Not on filedocumented in this encounter Historical Medications * This list may reflect changes made after this encounter. Medication Sig Dispensed Refills Start Date End Date Opvee 2.7 MG/0.1ML Solution Place 4 mg into one nostril one time for 1 dose.* 0 12/23/2023 added in this encounter Care Teams Donor Services Team Leader Relationship Specialty Start Date End Date Elissa Waggoner DO [address] [address] PCP - General Internal Medicine 12/23/23 documented as of this encounter
== END 2024-01-21 20:46 | disposition home or self-care (01) ==
PROVIDERS: Emergency Provider Family Medicine
DX: G89.18 Other acute postprocedural pain (principal)
CPT/HCPCS: 96374; 96375; 99283; 99284; J1100; J1885; J7030

== ENCOUNTER 2024-01-25 12:04 | Emergency (ER) | payer MEDICAID, SELFPAY ==
[2024-01-25 12:35] VITALS: BP 119/73; PULSE 80; RESP 18; TEMP 37; O2SAT 99; BMI 24.1
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
--- OUTSIDE RECORDS SUMMARY | 2024-01-25 13:16 | XMS_ITS | Clinical Summary ---
Author Name Unknown Organization [facility] [employer] ([employer]) [facility] Address [address] [address] Phone Care Team Providers Care Television Production Assistant Name Role Phone EdilsonElissa Sylvain DO Primary Care Provider [phone] Allergies Active Allergy Reactions Criticality Noted Date Comments Amoxicillin Unknown 01/07/2019 Category: Allergy; Annotation - 07Jan2019: Rash Diagnostic X-Ray Materials Unknown 1997 PN: YAS CM1: CONTRAST- nka Reaction : Gluten Meal Abdominal pain Low 04/06/2022 Latex RASH Medium 07/09/2020 Milk Protein Abdominal pain Low 04/06/2022 Medications Medication Sig Dispensed Refills Start Date End Date Status lamoTRIgine (LaMICtal) 200 MG tabletIndications:An xiety Take 1 Tablet by mouth one time a day. 90 Tablet 3 10/29/2022 Active pantoprazole (Protonix) 20 MG delayed-release tablet Take 20 mg by mouth one time a day. 02/06/2022 Active ondansetron (Zofran ODT) 4 MG disintegrating tablet Take 4 mg by mouth. 03/29/2022 Active cetirizine (ZyrTEC) 10 MG tablet Take 1 tablet by mouth every day As Needed for allergy symptoms* 11/09/2023 Active triamcinolone acetonide (Kenalog) 0.1 % ointment Apply topically to affected areas on arms, legs, trunk and back twice daily for 4 weeks.* 11/19/2023 Active buPROPion XL (Wellbutrin XL) 300 MG 24 hour extended release tabletIndications:At tention deficit hyperactivity disorder (ADHD), combined type,Anxiety Take 1 Tablet by mouth one time a day. 90 Tablet 3 12/23/2023 Active topiramate (Topamax) 200 MG tabletIndications:Mi graine without aura and without status migrainosus, not intractable Take 1 Tablet by mouth at bedtime. Do not crush. 90 Tablet 3 12/23/2023 Active traZODone (Desyrel) 50 MG tabletIndications:Pr imary insomnia Take 1 Tablet by mouth at bedtime. 90 Tablet 3 12/23/2023 Active LORazepam (Ativan) 0.5 MG tabletIndications:An xiety Take 1 Tablet by mouth two times a day as needed for Anxiety. 10 Tablet 1 12/23/2023 Active butalbital-acetamino phen-caffeine (Fioricet, Esgic) 50-325-40 MG oral tabletIndications:Mi graine without aura and without status migrainosus, not intractable Take 1 Tablet by mouth every six hours as needed for Pain. Acetaminophen should be limited to 4000 mg per day. 30 Tablet 5 12/23/2023 Active amphetamine-dextroam phetamine (Adderall) 20 MG tabletIndications:At tention deficit hyperactivity disorder (ADHD), combined type Take 1 Tablet by mouth every morning. To avoid insomnia, last daily dose should be taken no less than 6 hours before bed. 30 Tablet 12/23/2023 Active Adderall XR 30 MG 24 hour capsuleIndications:A ttention deficit hyperactivity disorder (ADHD), combined type Take 1 Capsule by mouth every morning. Should be given by noon. Swallow whole or open,sprinkle contents on food 30 Capsule 12/23/2023 Active Adderall XR 30 MG 24 hour capsuleIndications:A ttention deficit hyperactivity disorder (ADHD), combined type Take 1 Capsule by mouth every morning. Should be given by noon. Swallow whole or open,sprinkle contents on food 30 Capsule 01/22/2024 Active Adderall XR 30 MG 24 hour capsuleIndications:A ttention deficit hyperactivity disorder (ADHD), combined type Take 1 Capsule by mouth every morning. Should be given by noon. Swallow whole or open,sprinkle contents on food 30 Capsule 02/21/2024 Active amphetamine-dextroam phetamine (Adderall) 20 MG tabletIndications:At tention deficit hyperactivity disorder (ADHD), combined type Take 1 Tablet by mouth every morning. To avoid insomnia, last daily dose should be taken no less than 6 hours before bed. 30 Tablet 01/22/2024 Active amphetamine-dextroam phetamine (Adderall) 20 MG tabletIndications:At tention deficit hyperactivity disorder (ADHD), combined type Take 1 Tablet by mouth every morning. To avoid insomnia, last daily dose should be taken no less than 6 hours before bed. 30 Tablet 02/21/2024 Active levothyroxine (Synthroid) 75 MCG tabletIndications:Hy pothyroidism, unspecified type Take 1 Tablet by mouth one time a day. 90 Tablet 3 12/24/2023 Active Opvee 2.7 MG/0.1ML Solution Place 4 mg into one nostril one time for 1 dose.* 12/23/2023 Active Active Problems Problem Noted Date Diagnosed [...] risk surgeries, a class IIa recommendation (JACC. 2014;64(06);e1-76). Session ID: [id number] Endnotes and bibliography available upon request: [email or web address] Weight gain 12/23/2023 Last Assessment & Plan: [...] 02/22/2016 Urticaria, chronic 01/31/2016 Overview: Impression - [id number]: willl tx with medrol dose dash to see results. Is to have an OV soon and can discuss results then. Acne vulgaris 01/19/2016 Overview: Impression - [id number]: -currently taking minocycline and using finacea prn - Refill finacea foam; Impression - [id number]: off minocin to see if this is causing her hair loss; Impression - [id number]: derm to see; Impression - [id number]: will tx with topical benzyl peroxie with clind and oral minocin. FU in one month Allergic conjunctivitis 01/19/2016 Overview: Impression - [id number]: pataday ordered Migraine 01/19/2016 Overview: Replax caused lightheadedness Tried sumatriptan in past Last Assessment & Plan: Stable with topiramate daily and as needed Fioricet. Chronic constipation 12/26/2015 Overview: Impression - [id number]: Would like to involve GI - may benefit from linzess-type medication. For now, may continue colace BID. Concern regarding impact of AN on this issue. Insomnia 12/26/2015 Last Assessment & Plan: Managed with trazodone for sleep WPW (Nhnfd-Loptxvbju-Zpngy syndrome) 04/14/2015 Orthostasis 10/08/2014 ADHD 09/27/2014 Overview: [...] Type Department Care Team Description 01/21/2024 Telephone [facility] [address] [place] [phone] Selena Hernandez LPN Prior Authorization 12/30/2023 Telephone [facility] [address] [place] [phone] Elissa Waggoner DO Pre-Op 12/23/2023 1:30 PM CDT Office Visit [facility] [address] [place] [phone] Elissa Waggoner, Attention deficit hyperactivity disorder (ADHD), combined type (Primary Dx); Migraine without aura and without status migrainosus, not intractable; Hypothyroidism, unspecified type; Anxiety; Weight gain; Primary insomnia; Screening for cardiovascular condition; Recurrent streptococcal pharyngitis; Current mild episode of major depressive disorder without prior episode (HCC); Preop examination 12/23/2023 Telephone [facility] [address] [place] [address] Helga Magallanes Medication Question; Pharmacy Clarification (Adderall Orders) 12/23/2023 Travel 12/13/2023 Refill [facility] [address] [place] [phone] Lorelei Cage, RN Refill Request 12/10/2023 Telephone [facility] [address] [place] [phone] Imer Hoffman CMA Medication Problem (Patient requesting Capsules. Requires PA to be denied prior to patient being able to pay out of pocket due to Insurance. ) 12/03/2023 Refill [facility] [address] [place] [phone] Elissa Waggoner, DO Refill Request [...] 165.1 cm (5' 5) 10/29/2022 4:14 PM ENGLISH HORN PLAYER Body Mass Index 23.46 10/29/2022 4:14 PM ENGLISH HORN PLAYER Plan of Treatment Health Maintenance Due Date Last Done Comments Cervical Cancer Screening 1997 Last pap w/ HPV Testing 1997 Last pap w/o HPV Testing 1997 COVID-19 Vaccine ( season) 2023 Influenza Vaccine Seasonal (Standing Order) (#1) 2023 [...] Light Yellow, Yellow 12/23/2023 2:23 PM CDT [facility] Urine Appearance Clear Clear 12/23/19 2:23 PM T [facility] Urine Specific [place] 1.025 1.005 - 1.030 12/23/2023 2:23 PM T [facility] Urine pH 7.5 5.0 - 8.0 12/23/2023 2:23 PM CDT [facility] Urine Leukocyte Esterase Negative Negative 12/23/2023 2:23 PM CDT [facility] Urine Nitrates Negative Negative 12/23/2023 2:23 PM T [facility] Urine Protein Negative Negative 12/23/2023 2:23 PM T [facility] Urine Glucose Negative Negative 12/23/2023 2:23 PM T [facility] Urine Ketones Negative Negative 12/23/2023 2:23 PM CDT [facility] Urine Urobilinogen Normal Normal 12/23/2023 2:23 PM [facility] Urine Bilirubin Negative Negative 2:23 PM T [facility] Urine Blood Negative Negative 12/23/2023 2:23 PM [facility] Urine EXTRUSION DIE CORRECTOR MID-STREAM URINE SPECIMEN OBTAINED BY CLEAN CATCH PROCEDURE / Unknown Non-blood collection / Unknown 12/23/2023 2:07 PM CDT 12/23/2023 2:07 PM CDT Elissa M Edilson [place] URINE ORDERABLES [facility] [address] [place] [address], [facility] [phone] * (ABNORMAL) URINE DRUG SCREEN (12/23/2023 2:07 PM CDT) Urine Tetrahydrocannabinol Screen Negative Negative 12/23/2023 5:44 PM CDT [facility] Urine Phencyclidine Screen Negative Negative 12/23/2023 5:44 PM CDT [facility] Urine Cocaine Screen Negative Negative 12/12 5:44 PM CDT [facility] Urine Methamphetamine Screen Qualitative Negative Negative 12/23/2023 5:44 PM CDT [facility] Urine Morphine Screen Qualitative Negative Negative 12/23/2023 5:44 PM CDT [facility] Urine Amphetamines Screen Qualitative Positive(A ) Negative 12/23/2023 5:44 PM CDT [facility] Urine Benzodiazepines Screen Qualitative Negative Negative 12/23/2023 5:44 PM CDT [facility] Urine Tricyclic Antidepressants Screen Qualitative Negative Negative 12/23/2023 5:44 PM CDT [facility] Urine Methadone Screen Qualitative Negative Negative 12/23/2023 5:44 PM CDT [facility] Urine Barbiturates Screen Qualitative Negative Negative 12/23/2023 5:44 PM CDT [facility] Urine Oxycodone Screen Qualitative Negative Negative 12/23/2023 5:44 PM CDT [facility] Urine VOIDED URINE SPECIMEN / Unknown Non-blood collection / Unknown 12/23/2023 2:07 PM CDT 12/23/2023 2:07 PM CDT Narrative [facility] - 12/23/2023 5:44 PM [...] purposes: e.g. Legal or employment purposes. Elissa Narayan Edilson DO [place] URINE ORDERABLES [facility] [address] [phone] * COMPREHENSIVE METABOLIC PANEL (12/23/2023 2:07 PM T) Sodium 138 135 - 144 mmol/L 12/23/2023 5:10 PM [facility] Potassium 4.2 3.4 - 5.1 mmol/L 12/23/2023 5:10 PM [facility] Chloride 100 98 - 107 mmol/L 12/23/2023 5:10 PM [facility] Carbon Dioxide 28 22 - 30 mmol/L 12/23/2023 5:10 PM [facility] Calcium 9.6 8.6 - 10.3 mg/dL 12/23/2023 5:10 PM [facility] Alkaline Phosphatase 60 38 - 126 U/L 12/23/2023 5:10 PM [facility] Aspartate Aminotransferase 26 14 - 36 U/L 12/23/2023 5:10 PM [facility] Alanine Aminotransferase 21 <35 U/L 12/23/2023 5:10 PM [facility] Glucose 96 74 - 100 mg/dL 12/23/2023 5:10 PM [facility] Blood Urea nitrogen 15 7 - 17 mg/dL 12/23/2023 5:10 PM [facility] Creatinine 0.97 0.52 - 1.04 mg/dL 12/23/2023 5:10 PM [facility] Protein, Total 6.8 6.3 - 8.2 g/dL 12/23/2023 5:10 PM [facility] Albumin 4.2 3.5 - 5.0 g/dL 12/23/2023 5:10 PM CDT [facility] Bilirubin, Total 0.2 0.2 - 1.3 mg/dL 12/23/2023 5:10 PM CDT [facility] Globulin 2.6 1.4 - 4.8 g/dL 12/23/2023 5:10 PM CDT [facility] Anion Gap 10 5 - 15 mmol/L 12/23/2023 5:10 PM CDT [facility] Glomerular Filtration Rate >60 >60 mL/min/1. 73 m*2 12/23/2023 5:10 PM CDT [facility] Comment:This calculation use s CKD-EPI 2020 equation; it has not been validated in women. Blood BLOOD SPECIMEN / Unknown Venipuncture / Unknown 12/23/2023 2:07 PM CDT 12/23/2023 2:07 PM CDT Elissa Waggoner DO CHEMISTRY ORDERAB LES Performing Organization Address [facility]/State/[facility] Co de Phone Number [facility] [address] [place] [address] * HEMOGRAM (12/23/2023 2:07 PM CDT) WBC 6.2 4.0 - 11.0 X10*3u/L 12/23/2023 2:31 PM CDT [facility] RBC 4.10 3.80 - 5.20 X10*6/uL 12/23/2023 2:31 PM CDT [facility] HGB 13.3 12.0 - 16.0 g/dl 12/23/2023 2:31 PM CDT [facility] HCT 39.1 35.0 - 47.0 % 12/23/2023 2:31 PM CDT [facility] MCV 95.4 80 - 98 fL 12/23/2023 2:31 PM CDT [facility] MCH 32.4 27.0 - 34.0 pg 12/23/2023 2:31 PM CDT [facility] MCHC 34.0 32 - 36 g/dl 12/23/2023 2:31 PM CDT [facility] PLT 331 150 - 420 X10*3/uL 12/23/2023 2:31 PM CDT [facility] RDW-CV 11.9 11.6 - 14.4 % 12/23/2023 2:31 PM CDT [facility] RDW-SD 40.3 36.5 - 46.3 fL 12/23/2023 2:31 PM CDT [facility] Blood BLOOD SPECIMEN / Unknown Venipuncture / Unknown 12/23/2023 2:07 PM CDT 12/23/2023 2:07 PM CDT Elissa Waggoner DO HEMATOLOGY ORDERA BLES [facility] [address] [phone] * (ABNORMAL) LAMOTRIGINE (12/23/2023 2:07 PM CDT) [facility] Lamotrigine <0.2(L) 3.0 - 15.0 mcg/mL 12/24/2023 12:25 PM CDT [facility] Comment: ADDITIONAL INFORMATION This test was developed and its performance characteristics determined by [facility] in a manner consistent with CLIA requirements. This test has not been cleared or approved by the U.S. Food and Drug Administration. Test Performed by: [facility] - [address] [address] Lip Reading Teacher: Gregorio Morel M.D. Ph.D.; CLIA# [id number] Blood BLOOD SPECIMEN / Unknown Venipuncture / Unknown 12/23/2023 2:07 PM CDT 12/23/2023 2:07 PM CDT Elisas Waggoner DO LAB SEND OUT ORDE RABLES [facility] [address] [phone] * THYROID SCREEN WITH REFLEX (12/23/2023 2:07 PM CDT) Thyroid Stimulating hormone 0.74 0.47 - 4.68 mIU/L 12/23/2023 5:41 PM CDT [facility] Blood BLOOD SPECIMEN / Unknown Venipuncture / Unknown 12/23/2023 2:07 PM CDT 12/23/2023 2:07 PM CDT Elissa Waggoner DO CHEMISTRY ORDERAB LES ABN Performing Organization Address City/[facility]/ZIP Co de Phone Number [facility] [address] [place] [address] * (ABNORMAL) LIPID PANEL (12/23/2023 2:07 PM CDT) Cholesterol 176 100 - 200 mg/dL 12/23/2023 5:24 PM CDT [facility] Triglycerides 175(H) <150 mg/dL 12/23/2023 5:24 PM CDT [facility] HDL Cholesterol, Measured 100(H) 45 - 60 mg/dL 12/23/2023 5:24 PM CDT [facility] Non-HDL Cholesterol 76 <130 mg/dL 12/23/2023 5:24 PM CDT [facility] LDL Cholesterol, Calculated 41 <130 mg/dL 12/23/2023 5:24 PM CDT [facility] Blood BLOOD SPECIMEN / Unknown Venipuncture / Unknown 12/23/2023 2:07 PM CDT 12/23/2023 2:07 PM CDT Narrative [facility] - 12/23/2023 5:24 PM [...] Waggoner DO EC CHEMISTRY ORDERAB LES ABN [facility] [address] [phone] from Last 3 Months Care Teams Television Production Assistant Relationship Specialty Start Date End Date Elissa Waggoner DO [address] [address] [address] PCP - General Internal Medicine 12/23/23
--- OUTSIDE RECORDS SUMMARY | 2024-01-25 13:16 | XMS_ITS | Referral Summary ---
Author Name Unknown Organization [facility] Address [address] [place] [address] Care Team Providers Care Gear Lapper Name Role Phone Unavailable Primary Care Provider [...]
--- OUTSIDE RECORDS SUMMARY | 2024-01-25 13:16 | XMS_ITS | Clinical Summary ---
Author Name Unknown Organization [facility] Address [address] [place] [address] Care Team Providers Care Stuffing Machine Operator Name Role Phone Unavailable Primary Care Provider [...]
--- OUTSIDE RECORDS SUMMARY | 2024-01-25 13:16 | XMS_ITS | Clinical Summary ---
Author Name Unknown Organization [facility] Address [address] [place] [address] Care Team Providers Care Biological Lab Technician Name Role Phone Mariella De Anda APRN, NITHIN Primary Care Provid er Source Comments You are receiving this document as you are listed as the primary care provider,follow-up provider, or the patient has been referred to you for consultation.This is in compliance with the Medicare and[facility] Hospital[facility] EHR Incentive Program,which states Providers who transition their patient to another setting of careor provider of care or refers their patient to another provider of care shouldprovide summary care record for each transition of care or referral. [employer] Allergies Active Allergy Reactions Criticality Noted Date [...] Tablet (50 mcg) by mouth daily. Active Ebzzvivaxs-KBSG-Dkkca ine 50-300-40 MG CAPS TAKE ONE CAPSULE [...] Overview: Major depressive disorder, recurrent episode, unspecified ([facility]) Self-injurious behavior 09/27/2014 School avoidance 09/27/2014 Immunizations Name Administration Dates Next Due 4vHPV (Gardasil) 09/29/2014,03/23/2014 9vHPV (Gardasil 9) 03/15/2020,07/01/2017 DTaP 09/23/2002, 9,04/01/1998,1997,1997 Flu Vac (3+ yrs) 09/29/2014,11/09/2002, 2 HepA Ped/Adol (1-18 yrs) 06/01/2008,08/01/2007 HepB, Unspecified Formulation 07/01/1998, 998,1997 Hib, Unspecified Formulation 04/06/1999, 04/01/1998,01/21/1998,1997 IPV (Polio) 09/23/2002, 8,01/21/1998,1997 Influenza IIV4 (Quadrivalent ) 0.5mL (81064) 09/29/2014,08/02/2011,10/11/2010,2008,07/29/2008,08/01/2007,11/06/2006 Influenza Vaccine TIV, Nasal 08/02/2011, 10/11/2010,05/20/2009,2007,08/01/2007,11/06/2006 [...] CDT Respiratory Rate 16 10/19/2014 5:13 PM AUTO BODY REPAIRER Oxygen Saturation 100% 10/19/2014 8:30 PM AUTO BODY REPAIRER Inhaled Oxygen Concentration - - Weight 58.4 [...] AM CDT) Case Report Pap ? Case: [id number] ? Authorizing Provider: ??Mariella De Anda, RE, ??Collected: ? 06/03/2023 0844 ? IT SECURITY SPECIALIST ? Ordering Location: ? [facility] ?Received: ?06/03/2023 0854 ? Obstetrics/Gyneco logy ? First Screen: ?Alexia Jolly ? Specimen: ?Pap Test, Routine, Cervix/Endocervix ? 06/12/2023 1:12 PM CDT [facility] Pap Specimen Adequacy Satisfactory for evaluation, endocervical/salmon sformation zone component present. 06/12/2023 1:12 PM CDT [facility] Pap Interpretation (NILM) Negative for intraepithelial lesion or malignancy. 06/12/2023 1:12 PM CDT [facility] Pap Other Findings Fungal organisms morphologically consistent with Carolyne spp. 06/12/2023 1:12 PM CDT [facility] Pap Disclaimer The Pap test is a screening test to aid in the detection of cervical and vaginal cancers and their precursor lesions. It is not a diagnostic procedure and should not be used as the sole means of detecting malignancy. Both false-positive and false-negative results may occur. 06/12/2023 1:12 PM CDT [facility] Gross Description The specimen is received in SurePath fixative and properly labeled. 1 Pap-stained SurePath slide is prepared. 06/12/2023 1:12 PM CDT [facility] Embedded Images 1:12 PM CDT [facility] Other Specimen Type ENTIRE ENDOCERVIX / Unknown 06/03/2023 8:44 AM CDT 06/03/2023 8:54 AM CDT Comment:LMP: No LMP recorded . (Menstrual status: Irregular). Mariella De Anda APRN, CNP LAB PATHOLOG Y Performing Organization Address City/State/[facility] Co de Phone Number [facility] [address] * Chlamydia & GC (14 Years and Older): Vagina (06/03/2023 8:44 AM CDT) Chlamydia Trachomatis STD Not Detected Not Detected 06/03/2023 7:[address] [facility] N. gonorrhoeae STD Not Detected Not Detected 06/03/2023 7:[address] [facility] Swab STD SPECIMEN FROM VAGINA / Unknown Non-blood Collection / Unknown 06/03/2023 8:44 AM CDT 06/03/2023 8:51 AM CDT [facility] - 06/03/2023 7:30 PM CDT Test performed by Registered Respiratory Therapist Mediated Amplification (TMA). Mariella De Anda APRN, CNP LAB_1 [facility] [address] [address], [facility] [phone] from Last 3 Months or Most Recently Relevant to Health Maintenance Advance Directives * Full Code (Latest Code Status on File) Date Activated Date Inactivated Comments 10/19/2014 9:37 PM 10/26/2014 4:08 PM * Full Code Date Activated Date Inactivated Comments 10/08/2014 1:32 PM 10/19/2014 9:35 PM Care Teams Biological Lab Technician Relationship Specialty Start Date End Date Mariella De Anda APRN, NITHIN [address] [facility] [place] [phone] PCP - General Nurse Practitioner 01/26/21
--- OUTSIDE RECORDS SUMMARY | 2024-01-25 13:17 | XMS_ITS | Encounter Summary ---
Author Name Unknown Organization [facility] Address [address] [address] Phone Care Team Providers Care Farm Contractor Buyer Name Role Phone Unavailable Primary Care Provider Unavailabl e Reason for Visit * Reason Onset Date Comments Refill Request 12/13/2023 Encounter Details Date Type Department Care Team (Late st Contact Info) Description 12/13/2023 Refill [facility] [address] [place] [phone] Lorelei Cage RN Refill Request Social [...] or open,sprinkle contents on food 30 Capsule 12/16/2023 12/23/2023 amphetamine-dextroamphet amine (Adderall) 20 MG tabletIndications:Attent ion deficit hyperactivity disorder (ADHD), unspecified ADHD type Take 1 Tablet by mouth one time a day at noon. To avoid insomnia, last daily dose should be taken no less than 6 hours before bed. 30 Tablet 12/16/2023 12/23/2023 documented in this encounter Miscellaneous Notes * Telephone Encounter - Lorelei Cage RN - 12/16/2023 3:26 PM CST Printed scripts were mailed to the patient's home address by MARIJA Walters. GER MEDIA RELATIONS * Telephone Encounter - Lorelei Cage RN [...] Adderall 30mg XR Dx: ADHD Per [place] SENIOR CORPORATE ACCOUNTANT Last Date Dispensed: 11/16/23 on both Quantity: #30 on both Days Supply: #30 on both Last Med Check: 06/11/23 DOA testin06/11/23 GER MEDIA RELATIONS documented in this encounter Plan of Treatment [...]
--- OUTSIDE RECORDS SUMMARY | 2024-01-25 13:17 | XMS_ITS | Encounter Summary ---
Author Name Unknown Organization [facility] [facility] Address [address] [address] Phone Care Team Providers Care Gre Instructor Name Role Phone Edilsno Elissa M DO Primary Care Provider [phone] Reason for Visit * Reason Onset Date Comments Medication Question 12/23/2023 Pharmacy Clarification 12/23/2023 Adderall Orders Encounter Details Date Type Department Care Team ([facility] Contact Info) Description 12/23/2023 Telephone [facility] [address] [place] [address] Helga Magallanes Medication Question; Pharmacy [...] 6 hours before bed. 30 Tablet 02/21/2024 amphetamine-dextroampheta mine (Adderall) 20 MG tabletIndications:Attenti on deficit hyperactivity disorder (ADHD), combined type Take 1 Tablet by mouth every morning. To avoid insomnia, last daily dose should be taken no less than 6 hours before bed. 30 Tablet 01/22/2024 Adderall XR 30 MG 24 hour capsuleIndications:Attent ion deficit hyperactivity disorder (ADHD), combined type Take 1 Capsule by mouth every morning. Should be given by noon. Swallow whole or open,sprinkle contents on food 30 Capsule 02/21/2024 Adderall XR 30 MG 24 hour capsuleIndications:Attent ion deficit hyperactivity disorder (ADHD), combined type Take 1 Capsule by mouth every morning. Should be given by noon. Swallow whole or open,sprinkle contents on food 30 Capsule 01/22/2024 Adderall XR 30 MG 24 hour capsuleIndications:Attent ion deficit hyperactivity disorder (ADHD), combined type Take 1 Capsule by mouth every morning. Should be given by noon. Swallow whole or open,sprinkle contents on food 30 Capsule 12/23/2023 amphetamine-dextroampheta mine (Adderall) 20 MG tabletIndications:Attenti on deficit hyperactivity disorder (ADHD), combined type Take 1 Tablet by mouth every morning. To avoid insomnia, last daily dose should be taken no less than 6 hours before bed. 30 Tablet 12/23/2023 documented in this encounter Miscellaneous Notes [...] Brand Name (LYNN). 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 Quantity: #30 for both. Days Supply: 30 days for both. Last Med Check: 12/23/23 DOA testin12/23/23 * Telephone Encounter - Helga Magallanes - 12/23/2023 2:23 PM CDT [facility] is requesting a call [...] documented as of this encounter Care Teams Gre Instructor Relationship Specialty Start Date End Date Elissa Waggoner DO [address] [address] PCP - General Internal Medicine 12/23/23 documented as of this encounter
--- OUTSIDE RECORDS SUMMARY | 2024-01-25 13:17 | XMS_ITS | Encounter Summary ---
Author Name Unknown Organization [facility] [employer] [facility] Address [address] [address] Phone Care Team Providers Care Engraver Flatware Name Role Phone Unavailable Primary Care Provider Unavailabl e Reason for Visit * Reason Comments Refill Request Encounter Details Date Type Department Care Team (Late st Contact Info) Description 12/03/2023 Refill [facility] INTER[facility] MED[facility]INE [address] [place] [address] Elissa Waggoner, DO [address] [place], [place] [phone] Refill Request Social History Tobacco Use Types [...] PER DAY FROM ALL SOURCES 30 Capsule 12/04/2023 12/12/2023 documented in this encounter Miscellaneous Notes * Telephone Encounter - Hussein Mackey RN - 12/05/2023 5:06 PM CST Called to notify patient of information and what pharmacy reviewed with triage nurse. No answer. Left message for patient to please call back. Clinic phone number provided. Thank you. RAFT LOADMASTER SUPERINTENDENT * Telephone Encounter - Hussein Mackey RN [...] is aware. No further questions. Thank you. RAFT LOADMASTER SUPERINTENDENT * Telephone Encounter - Hussein Mackey RN [...] placed on hold again and call ended. RAFT LOADMASTER SUPERINTENDENT * Telephone Encounter - Destiney Son - 12/05/2023 1:47 PM CST Patient calling regarding inquiring on status of prescription. Patient stated that the script needsto be denied in order for her insurance to cover it, which does not make sense to policy writer. Patient is currently experiencing the worse migraine of my life. Routing to nursing for review. RAFT LOADMASTER SUPERINTENDENT * Telephone Encounter - Hussein Mackey RN - 12/05/2023 11:12 AM AIRCRAFT LOADMASTER SUPERINTENDENT Called pharmacy to review request for order due to system issue with receiving Rx that was sent on 12/04/23 for Fioricet. Called and provided information for pharmacy. Confirmed order. No further questions. Thank you. RAFT LOADMASTER SUPERINTENDENT * Telephone Encounter - Destiney Son - 12/05/2023 9:58 AM CST Pharmacy states that their system has been down and requesting a return call with verbal rx becausepatient is in pharmacy and upset that she cannot receive the script. Routing to nursing for review. RAFT LOADMASTER SUPERINTENDENT * Telephone Encounter - Tosha Adkins RN - 12/04/2023 1:[address] Waggoner, medication request:Kasie Dx:migraine Per [place] RECEIVABLES SPECIALIST Last Date Dispensed:08/21/23 Quantity:30 Days Supply:7 Refills Remainin Last Med Check:06/11/23 upcoming 12/23/23 DOA testin06/11/23 RAFT LOADMASTER SUPERINTENDENT documented in this encounter Plan of Treatment [...]
--- OUTSIDE RECORDS SUMMARY | 2024-01-25 13:17 | XMS_ITS | Encounter Summary ---
Author Name Unknown Organization [facility] [employer] [facility] Address [address] [address] Phone Care Team Providers Care Poultry Culler Name Role Phone Elissa Waggoner DO Primary Care Provider [phone] Reason for Visit * Reason Onset Date Comments Pre-Op 12/30/2023 Encounter Details Date Type Department Care Team ([facility] Contact Info) Description 12/30/2023 Telephone [facility] [address] [place] [phone] Elissa Waggoner DO [address] [place], [place] [address] Pre-Op Social History Tobacco Use Types Packs/Day [...] patient to have surgery on 01/17/2024 at [facility]. Patient stated it was too far for her to drive and will go somewhere else and then hung up on nurse receptionist Idalmis Shannon. * Telephone Encounter - Elissa Waggoner DO - 01/16/2024 12:19 PM CDT This was an addended office note. If note not acceptable, will need to come in for exam. * Telephone Encounter - Madison Urbano - 01/16/2024 11:53 AM CDT [facility] is calling because the Preop didn't include a heart and lung assessment on it. That's a requirement. * Telephone Encounter - Selena Hernandez LPN - 12/31/2023 10:59 AM CDT Faxed recent note with addendum to [facility] * Telephone Encounter - Elissa Waggoner DO - 12/31/2023 9:38 AM CDT Note modified. Please fax to ENT/surgery center * Telephone Encounter - Helga pSence - 12/30/2023 11:23 AM CDT Patient called in to request Dr. Waggoner approve her ok to have surgery January 16 at [facility] for a tonsillectomy. She said she just had a medication check up with her on 12/22 and would like to know if this is okay to suffice for this. Routing to nursing for review documented in this encounter Plan of Treatment Not on file documented as of this encounter Visit Diagnoses Not on filedocumented in this encounter Care Teams Poultry Culler Relationship Specialty Start Date End Date Elissa Waggoner DO [address] [address] PCP - General Internal Medicine 12/23/23 documented as of this encounter
--- OUTSIDE RECORDS SUMMARY | 2024-01-25 13:17 | XMS_ITS | Encounter Summary ---
Author Name Unknown Organization [facility] [employer] [facility] Address [address] [address] Phone Care Team Providers Care Spout Liner Name Role Phone Elissa Waggoner DO Primary Care Provider [phone] Reason for Visit * Reason Onset Date Comments Prior Authorization 01/21/2024 Encounter Details Date Type Department Care Team (Late st Contact Info) Description 01/21/2024 Telephone [facility] INTERNAL MEDICINE [address] [place] [address] Selena Hernandez LPN Prior Authorization [...] Telephone Encounter - Selena Hernandez LPN - 01/22/2024 4:39 PM CDT Sent pt a [facility] message letting her know I can't put a PA through for her since there is no basis of Dx for herself. 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 I let her know there are otc options and if she feels work should have on hand they should supply it. * Telephone Encounter - Selena Hernandez LPN [...] nostril one time for 1 dose.* 12/23/2023 added in this encounter Care Teams Spout Liner Relationship Specialty Start Date End Date Elissa Waggoner DO [address] [address] PCP - General Internal Medicine 12/23/23 documented as of this encounter
--- OUTSIDE RECORDS SUMMARY | 2024-01-25 13:17 | XMS_ITS | Encounter Summary ---
Author Name Unknown Organization [facility] [employer] [facility] Address [address] [address] Phone Care Team Providers Care Office Administration Name Role Phone Elissa Waggoner DO Primary Care Provider [phone] Encounter Details Date Type Department Care Team [...] on filedocumented in this encounter Care Teams Office Administration Relationship Specialty Start Date End Date Elissa Waggoner DO [address] [address] PCP - General Internal Medicine 12/23/23 documented as of this encounter
--- OUTSIDE RECORDS SUMMARY | 2024-01-25 13:17 | XMS_ITS | Encounter Summary ---
Author Name Unknown Organization [facility] [email or web address] [facility] Address [address] [address] Phone Care Team Providers Care Ski Lift Mechanic Name Role Phone Flora Waggoner DO Primary Care Provider [phone] Reason for Visit * Reason Comments Follow Up Encounter Details Date Type Department Care Team (Latest Contact Info) Description 12/23/2023 1:30 PM CDT Office Visit [facility] INTER[facility] MEDICINE [address] [place] [phone] Flora Waggoner DO [address] [place], [place] [phone] Attention deficit hyperactivity disorder (ADHD), combined type [...] Body Mass Index 23.46 10/29/2022 4:14 PM CYBER INTEL PLANNER documented in this encounter Functional Status Functional [...] mouth at bedtime. Do not crush. - lowmoexyij-sjhrcdpqvjojb-pfhnpewb (Fioricet, Esgic) 50-325-40 MG oral tablet; Take [...] class IIa recommendation (JACC. 2014;64(21);e1-76). Session ID: [id number] Endnotes and bibliography available upon request: [email or web address] Other orders - Nalmefene HCl (Opvee) 2.7 MG/0.1ML Solution; Place 4 mg into one nostril one time for 1 dose. If your provider has ordered a radiology test that needs to be scheduled at any of the [place] facilities, for your convenience and to offer you the best service, we ask that you contact the [place] [facility] directly at [phone]. If you have an Ultrasound or DEXA order from [facility], those are performed directly by them. Please call [phone] ([place]) or [phone] ([place]) to schedule those tests. documented in this [...] or open,sprinkle contents on food 90 Capsule 12/23/2023 12/23/2023 amphetamine-dextroamp hetamine (Adderall) 20 MG tabletIndications:Att ention deficit hyperactivity disorder (ADHD), combined type Take 1 Tablet by mouth every morning for 90 days. To avoid insomnia, last daily dose should be taken no less than 6 hours before bed. 90 Tablet 12/23/2023 12/23/2023 Nalmefene HCl (Opvee) 2.7 MG/0.1ML [...] from the original note were not included. [place] Office Visit Subjective Helga is a 28 [...] been very frustrating. 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 Struggling with recurrently tonsillitis [...] mouth at bedtime. Do not crush. - jchpybjysy-yzoaxbazraruk-fuslabat (Fioricet, Esgic) 50-325-40 MG oral tablet; Take [...] class IIa recommendation (JACC. 2014;64(21);e1-76). Session ID: [id number] Endnotes and bibliography available upon request: [email or web address] Other orders - Nalmefene HCl (Opvee) 2.7 [...] class IIa recommendation (JACC. 2014;64(21);e1-76). Session ID: [id number] Endnotes and bibliography available upon request: [email or web address] Assessment & Plan Note - Flora [...] Screen Negative Negative 12/23/2023 5:44 PM CDT [facility] Urine Phencyclidine Screen Negative Negative 12/23/2023 5:44 PM CDT [facility] Urine Cocaine Screen Negative Negative 12/12 5:[facility]rine Methamphetamine Screen Qualitative Negative Negative 12/23/2023 5:44 [facility] Urine Morphine Screen Qualitative Negative Negative 12/23/2023 5:44 PM CDT [facility] Urine Amphetamines Screen Qualitative Positive(A ) Negative 12/23/2023 5:44 PM CDT [facility] Urine Benzodiazepines Screen Qualitative Negative Negative 12/23/2023 5:44 PM CDT [facility] Urine Tricyclic Antidepressants Screen Qualitative Negative Negative 12/23/2023 5:44 [facility] Urine Methadone Screen Qualitative Negative Negative 12/23/2023 5:44 [facility] Urine Barbiturates Screen Qualitative Negative Negative 12/23/2023 5:44 PM [facility] Urine Oxycodone Screen Qualitative Negative Negative 12/23/2023 5:44 PM [facility] Urine VOIDED URINE SPECIMEN / Unknown Non-blood collection / Unknown 12/23/2023 2:07 PM CDT 12/23/2023 2:07 PM CDT Narrative [facility] - 12/23/2023 5:44 PM CDT Positive [...] or employment purposes. Flora HAMILTON URINE ORDERABLES [facility] [address] [phone] * URINALYSIS, REFLEX TO MICROSCOPIC (12/23/2023 2:07 PM CDT) UA Color Yellow Light Yellow, Yellow 12/23/2023 2:[address] [facility] Urine Appearance Clear Clear 12/23/19 2:[address] [facility] Urine Specific [place] 1.025 1.005 - 1.030 12/23/2023 2:[address] [facility] Urine pH 7.5 5.0 - 8.0 12/23/2023 2:[address] [facility] Urine Leukocyte Esterase Negative Negative 12/23/2023 2:[address] [facility] Urine Nitrates Negative Negative 12/23/2023 2:[address] [facility] Urine Protein Negative Negative 12/23/2023 2:[address] [facility] Urine Glucose Negative Negative 12/23/2023 2:[address] [facility] Urine Ketones Negative Negative 12/23/2023 2:[address] [facility] Urine Urobilinogen Normal Normal 12/23/2023 2:[address] [facility] Urine Bilirubin Negative Negative 2:[address] [facility] Urine Blood Negative Negative 12/23/2023 2:[address] [facility] Urine SENIOR LANDSCAPE ARCHITECT MID-STREAM URINE SPECIMEN OBTAINED BY CLEAN CATCH PROCEDURE / Unknown Non-blood collection / Unknown 12/23/2023 2:07 PM CDT 12/23/2023 2:07 PM CDT Flora Waggoner DO EC URINE ORDERABLES [facility] [address] [id number] [phone] * (ABNORMAL) LIPID PANEL (12/23/2023 2:07 PM CDT) Cholesterol 176 100 - 200 mg/dL 12/23/2023 5:24 PM CDT [facility] Triglycerides 175(H) <150 mg/dL 12/23/2023 5:24 PM CDT [facility] HDL Cholesterol, Measured 100(H) 45 - 60 mg/dL 12/23/2023 5:24 PM CDT [facility] Non-HDL Cholesterol 76 <130 mg/dL 12/23/2023 5:24 PM CDT [facility] LDL Cholesterol, Calculated 41 <130 mg/dL 12/23/2023 5:24 PM CDT [facility] Blood BLOOD SPECIMEN / Unknown Venipuncture / Unknown 12/23/2023 2:07 PM CDT 12/23/2023 2:07 PM CDT Narrative [facility] - 12/23/2023 5:24 PM CDT Cholesterol [...] CHEMISTRY ORDERAB LES ABN Performing Organization Address City/[facility] Co de Phone Number [facility] [address] [phone] * THYROID SCREEN WITH REFLEX (12/23/2023 2:07 PM CDT) Thyroid Stimulating hormone 0.74 0.47 - 4.68 mIU/L 12/23/2023 5:41 PM CDT [facility] Blood BLOOD SPECIMEN / Unknown Venipuncture / Unknown 12/23/2023 2:07 PM CDT 12/23/2023 2:07 PM CDT Flora Waggoner DO EC CHEMISTRY ORDERAB LES ABN Performing Organization Address City/[facility] Co de Phone Number [facility] [address] [phone] * COMPREHENSIVE METABOLIC PANEL (12/23/2023 2:07 PM CDT) Sodium 138 135 - 144 mmol/L 12/23/2023 5:10 PM CDT [facility] Potassium 4.2 3.4 - 5.1 mmol/L 12/23/2023 5:10 PM CDT [facility] Chloride 100 98 - 107 mmol/L 12/23/2023 5:10 PM [facility] Carbon Dioxide 28 22 - 30 mmol/L 12/23/2023 5:10 PM [facility] Calcium 9.6 8.6 - 10.3 mg/dL 12/23/2023 5:10 PM [facility] Alkaline Phosphatase 60 38 - 126 U/L 12/23/2023 5:10 PM [facility] Aspartate Aminotransferase 26 14 - 36 U/L 12/23/2023 5:10 PM [facility] Alanine Aminotransferase 21 <35 U/L 12/23/2023 5:10 PM [facility] Glucose 96 74 - 100 mg/dL 12/23/2023 5:10 PM [facility] Blood Urea nitrogen 15 7 - 17 mg/dL 12/23/2023 5:10 PM [facility] Creatinine 0.97 0.52 - 1.04 mg/dL 12/23/2023 5:10 PM [facility] Protein, Total 6.8 6.3 - 8.2 g/dL 12/23/2023 5:10 PM [facility] Albumin 4.2 3.5 - 5.0 g/dL 12/23/2023 5:10 PM [facility] Bilirubin, Total 0.2 0.2 - 1.3 mg/dL 12/23/2023 5:10 PM [facility] Globulin 2.6 1.4 - 4.8 g/dL 12/23/2023 5:10 PM [facility] Anion Gap 10 5 - 15 mmol/L 12/23/2023 5:10 PM [facility] Glomerular Filtration Rate >60 >60 mL/min/1. 73 m*2 12/23/2023 5:10 PM [facility] Comment:This calculation use s CKD-EPI 2020 equation; it has not been validated in women. Blood BLOOD SPECIMEN / Unknown Venipuncture / Unknown 12/23/2023 2:07 PM CDT 12/23/2023 2:07 PM CDT Flora Waggoner DO CHEMISTRY ORDERAB LES [facility] [address] [place] [address] [phone] * HEMOGRAM (12/23/2023 2:07 PM CDT) WBC 6.2 4.0 - 11.0 X10*3u/L 12/23/2023 2:[address] [facility] RBC 4.10 3.80 - 5.20 X10*6/uL 12/23/2023 2:[address] [facility] HGB 13.3 12.0 - 16.0 g/dl 12/23/2023 2:[address] [facility] HCT 39.1 35.0 - 47.0 % 12/23/2023 2:[address] [facility] MCV 95.4 80 - 98 fL 12/23/2023 2:[address] [facility] MCH 32.4 27.0 - 34.0 pg 12/23/2023 2:[address] [facility] MCHC 34.0 32 - 36 g/dl 12/23/2023 2:[address] [facility] PLT 331 150 - 420 X10*3/uL 12/23/2023 2:[address] [facility] RDW-CV 11.9 11.6 - 14.4 % 12/23/2023 2:[address] [facility] RDW-SD 40.3 36.5 - 46.3 fL 12/23/2023 2:[address] [facility] Blood BLOOD SPECIMEN / Unknown Venipuncture / Unknown 12/23/2023 2:07 PM CDT 12/23/2023 2:07 PM CDT Flora M Edilson DO EC HEMATOLOGY ORDERA BLES Performing Organization Address City/[facility]/ZIP Co de Phone Number [facility] [address] [place], [place] [address] [phone] * (ABNORMAL) LAMOTRIGINE (12/23/2023 2:07 PM CDT) Lamotrigine <0.2(L) 3.0 - 15.0 mcg/mL 12/24/2023 12:25 PM CDT [facility] Comment: ADDITIONAL INFORMATION This test was developed and its performance characteristics determined by [facility] in a manner consistent with CLIA requirements. This test has not been cleared or approved by the U.S. Food and Drug Administration. Test Performed by: [facility] - [address] [address] Pace Analyst: Gregorio Morel M.D. Ph.D.; CLIA# [id number] Blood BLOOD SPECIMEN / Unknown Venipuncture / Unknown 12/23/2023 2:07 PM CDT 12/23/2023 2:07 PM CDT Flora HAMILTON LAB SEND OUT REAGAN LOONEY Performing Organization Address [facility]/ZIP Co de Phone Number [facility] [address] [place] [address] [phone] documented in this encounter Visit Diagnoses Diagnosis [...] back twice daily for 4 weeks.* 11/19/2023 cetirizine (ZyrTEC) 10 MG tablet Take 1 tablet by mouth every day As Needed for allergy symptoms* 11/09/2023 butalbital-acetaminophe n-caffeine (Fioricet, Esgic) 50-325-40 MG oral tablet 12/12/2023 12/23/2023 added in this encounter Care Teams Ski Lift Mechanic Relationship Specialty Start Date End Date Flora Waggoner DO [address] [address] PCP - General Internal Medicine 12/23/23 documented as of this encounter
--- OUTSIDE RECORDS SUMMARY | 2024-01-25 13:17 | XMS_ITS | Encounter Summary ---
Author Name Unknown Organization [facility] [employer] [facility] Address [address] [address] Phone Care Team Providers Care Automobile Body Worker Name Role Phone Unavailable Primary Care Provider Unavailabl e Reason for Visit * Reason Onset Date Comments Medication Problem 12/10/2023 Patient reque sting Capsules. Requires PA to be denied prior to patient being able to pay out of pocket due to Insurance. Encounter Details Date Type Department Care Team (Late st Contact Info) Description 12/10/2023 Telephone [facility] [address] [place] [address] Imer Hoffman, RAFA Medication Problem [...] butalbital-acetaminop hen-caffeine (Fioricet) 50-300-40 MG oral capsuleIndications:Mi derek without status migrainosus, not intractable, unspecified migraine type TAKE ONE CAPSULE BY MOUTHEVERY SIX HOURS NEEDEDFOR MIGRAINE. LIMIT ACETAMINOPHEN TO 4000 MG PER DAY FROM ALL SOURCES 30 Capsule 12/13/2023 12/18/2023 butalbital-acetaminop hen-caffeine (Fioricet, Esgic) 50-325-40 MG oral tabletIndications:Ranjith salvador without aura and without status migrainosus, not intractable Take 1 Tablet by mouth every six hours as needed for Pain. Acetaminophen should be limited to 4000 mg per day. 30 Tablet 12/12/2023 12/13/2023 documented in this encounter Miscellaneous Notes * Telephone Encounter - Hussein Dumont RN - 12/17/2023 9:42 AM CST Called and confirmed that Rx was denied by insurance. Pharmacy confirmed denial but asked for Fax of insurance denial to process medication order for Outof Pocket. Sent to pharmacy by fax. Thank you. CH LANGUAGE PATHOLOGIST TRAVEL * Telephone Encounter - Lorelei Cage RN - 12/16/2023 10:33 AM SPEECH LANGUAGE PATHOLOGIST TRAVEL PA denied. We are not approving your request because: - Documentation has not shown that you have tried and failed lqtgoncwrb-njqpaxctdnziy-iszhqpnm 50 mg-325 mg-40 mg tablets. We realize this may not be the answer you expected. We made this decision based on: - Information from your doctor - Your [facility] Drug List Coverage Criteria for butalbitalacetaminophen- caffeine 50 mg-300 mg-40 mg capsules CH LANGUAGE PATHOLOGIST TRAVEL * Telephone Encounter - Lorelei Cage RN - 12/13/2023 4:52 PM CST PA started through Epic - Questions answered. Awaiting a response. CH LANGUAGE PATHOLOGIST TRAVEL * Telephone Encounter - Nico Mckenzie MD - 12/13/2023 4:45 PM CST It printed out.. gave to Imer CH LANGUAGE PATHOLOGIST TRAVEL * Addendum Note - Nico Mckenzie MD - 12/13/2023 4:45 PM CSTAddended by: NICO MCKENZIE on: 12/13/2023 04:45 PM Modules accepted: Orders CH LANGUAGE PATHOLOGIST TRAVEL * Addendum Note - Hussein Dumont RN - 12/13/2023 3:57 PM CSTAddended by: HUSSEIN DUMONT on: 12/13/2023 03:57 PM Modules accepted: Orders CH LANGUAGE PATHOLOGIST TRAVEL * Telephone Encounter - Hussein Dumont RN [...] 50-300-400 MG Capsules Dx: Migraine Per [place] SOLID WASTE ENGINEER Last Date Dispensed: 08/21/23 Quantity: #30 Days Supply: 7 days Last Med Check: 06/11/23 DOA testin06/11/23 CH LANGUAGE PATHOLOGIST TRAVEL * Telephone Encounter - Paola Bojorquez - 12/13/2023 2:14 PM CST [facility] ([place]) states patient does not want to change from capsules to tablets for the Butalbital-Acetaminophen Caffeine. Pharmacy states to continue pursuing PA for capsules. Ok to call pharmacy if any questions. Thank you CH LANGUAGE PATHOLOGIST TRAVEL * Telephone Encounter - Lorelei Cage RN - 12/12/2023 8:[address] Mckenzie - please see the pended prescription for the formulary alternative to what was originally prescribed. Please sign as appropriate. CH LANGUAGE PATHOLOGIST TRAVEL * Telephone Encounter - Imer Hoffman CMA - 12/10/2023 8:27 AM CST PA started via Epic. CH LANGUAGE PATHOLOGIST TRAVEL documented in this encounter Plan of Treatment [...]
--- OUTSIDE RECORDS SUMMARY | 2024-01-25 13:17 | XMS_ITS | Clinical Summary ---
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 Abnormal ECG 10/08/2014 Alcohol abuse, in remission 09/27/2014 Appetite disorder 09/27/2014 Depression, major, recurrent 09/27/2014 Cannabis abuse, in remission 09/27/2014 Panic disorder without agoraphobia 09/27/2014 Self-destructive behavior 09/27/2014 Anxiety ADHD (attention deficit hyperactivity disorder) Encounters Date Type Department Care Team Description 01/17/2024 Lab Requisition [facility] [phone] René Michaels MD from Last 3 Months [...] Comments Blood Pressure 112/72 10/10/2015 3:34 PM BEHAVIORAL SCIENCES INSTRUCTOR Pulse 66 10/10/2015 3:34 PM BEHAVIORAL SCIENCES INSTRUCTOR Temperature 36.1 ??C (97 ??F) 09/06/2015 1:30 PM BEHAVIORAL SCIENCES INSTRUCTOR Respiratory Rate 16 09/07/2015 6:25 PM BEHAVIORAL SCIENCES INSTRUCTOR Oxygen Saturation 100% 09/06/2015 1:30 PM BEHAVIORAL SCIENCES INSTRUCTOR Inhaled Oxygen Concentration - - Weight 45.3 kg (99 lb 14.4 oz) 10/10/2015 3:34 P M BEHAVIORAL SCIENCES INSTRUCTOR Height 160 cm (5' 2.99) 10/10/2015 3:34 PM BEHAVIORAL SCIENCES INSTRUCTOR Body Mass Index 17.7 10/10/2015 3:34 PM BEHAVIORAL SCIENCES INSTRUCTOR Plan of Treatment Health Maintenance Due Date [...] CDT René Michaels MD LAB BILL ONLY [facility] [address] [place] [address], [place] * PATH TISSUE EXAM (01/17/2024 11:13 AM CDT) Case Report Pathology Report ?Case: [id number] ? Authorizing Provider: ??René Michaels, ??Collected: ? 01/17/2024 111 ? MD ? Ordering Location: ? [facility] ?Received: ?01/18/2024 06 ? Pathologist: ? Kristine Sorto ? MD Eileen ? Specimens: ?? A) - Right Tonsil ? B) - Left Tonsil ? 01/20/2024 2:19 PM CDT [facility] Final Diagnosis A) TONSIL, RIGHT, TONSILLECTOMY: 1. Benign lymphoid hyperplasia 2. Negative for atypia or malignancy B) TONSIL, LEFT, TONSILLECTOMY: 1. Benign lymphoid hyperplasia 2. Negative for atypia or malignancy 01/20/2024 2:19 PM CDT [facility] Clinical Information Chronic tonsillitis 01/20/2024 2:19 PM CDT [facility] Gross Description A) Received [...] lesions or areas of hemorrhage/necros is. ??A medical service representative section is submitted in 1 cassette. B) Received in formalin, labeled with the patient's name and left tonsil, is a tonsillectomy specimen 2.5 x 1.5 x 1.6 cm palatine tonsil characterized by glistening pink convoluted mucosa and miranda focally cauterized shaggy resection margin. ??Sectioning reveals pink-miranda cerebriform cut surfaces with no distinct solid mass lesions or areas of hemorrhage/necros is. ??A medical service representative section is submitted in 1 cassette. ADW 01/18/2024 01/20/2024 2:19 PM CDT [facility] Microscopic Description The final diagnosis is based on microscopic examination of appropriate sections of all specimens. 01/20/2024 2:19 PM CDT [facility] Additional Information Interpreted at [facility] - [address], [place] [address] 01/20/2024 2:19 PM CDT [facility] Other (Right Tonsil) 01/17/2024 11:13 AM CDT 01/18/2024 6:21 AM CDT Specimen (specimen) (Left Tonsil) 01/17/2024 11:17 AM CDT 01/18/2024 6:21 AM CDT René Michaels MD PATHOLOGY/CYT OLOGY [facility] [address] [place] [address], [place] from Last 3 Months Advance Directives * Full Code (Latest Code Status on File) Date Activated Date Inactivated Comments 09/06/2015 7:35 AM 09/06/2015 7:02 PM * Full Code Date Activated Date Inactivated Comments 07/31/2015 4:20 PM 08/01/2015 1:43 PM Care Teams Php Consultant Relationship Specialty Start Date End Date Jelena Higgins DO [address] [address] PCP - General Family Practice 03/15/23
--- OUTSIDE RECORDS SUMMARY | 2024-01-25 13:17 | XMS_ITS | Encounter Summary ---
Author Name Unknown Organization [facility] [employer] [facility] Address [address] [address] Phone Care Team Providers Care Epic Beacon Specialists Name Role Phone Elissa Waggoner DO Primary Care Provider [phone] Elissa Waggoner DO Primary Care Provider [phone] Reason for Visit * Reason Comments Refill Request Encounter Details Date Type Department Care Team (Late st Contact Info) Description 05/14/2023 Refill [facility] [address] [place] [phone] Elissa Waggoner, DO [address] [place] [address] Refill Request Social History Tobacco Use Types [...] or open,sprinkle contents on food 30 Capsule 05/16/2023 06/11/2023 amphetamine-dextroamphet amine (Adderall) 20 MG tabletIndications:Attent ion deficit hyperactivity disorder (ADHD), combined type Take 1 Tablet by mouth every afternoon. To avoid insomnia, last daily dose should be taken no less than 6 hours before bed. 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 DOA testin10/30/22 documented in this encounter [...] documented as of this encounter Care Teams Epic [facility]acon Specialists Relationship Specialty Start Date End Date Elissa Waggoner DO [address] [address] PCP - General Internal Medicine 10/29/22 05/15/23 Elissa Waggoner DO [address] [address] PCP - General Internal Medicine 12/23/23 documented as of this encounter
[2024-01-25] MEDS: KETOROLAC 15 MG/ML inj IVP (13:19)
[2024-01-25] MEDS: 0.9 % SODIUM CHLORIDE 1000 ml 1,000 ML IV (13:19)
[2024-01-25 13:26] LABS: Basophils Absolute Auto 0.02 K/uL (0.00-0.30); Basophils Percent Auto 0.3 % (0.0-3.0); Eosinophils Absolute Auto 0.11 K/uL (0.00-0.50); Eosinophils Percent Auto 1.9 % (0.0-7.0); Hemoglobin* 14.7 gm/dL (12.0-16.0); Lymphocytes Percent Auto 18.2 % (20-44); Mean Corpuscular HGB Conc 35 gm/dL (32-36); Mean Corpuscular Hemoglobin 32 pg (26-34); Mean Corpuscular Volume 90 fL (80-100); Monocytes Percent Auto 13.1 % (0.0-11.0); Neutrophils Absolute Auto 3.81 K/uL (1.7-7.0); Neutrophils Percent Auto 66.5 % (42.0-72.0); Platelet Count* 370 K/uL (140-440); RDW Coefficient of Variation % 11.4 % (11.5-15.5); Red Blood Count 4.66 m/uL (4.00-5.20); White Blood Count* 5.73 K/uL (4.50-11.00)
[2024-01-25 13:32] LABS: Slide Review Reflex No
[2024-01-25 13:51] LABS: Chloride* 104 mmol/L (96-114); Potassium* 4.2 mmol/L (3.6-5.1); Sodium* 137 mmol/L (135-149)
[2024-01-25 13:54] LABS: Anion Gap 2 mEq/L (7-15); Blood Urea Nitrogen* 21 mg/dL (5-24); Calcium* 9.5 mg/dL (8.4-10.6); Carbon Dioxide* 31 mmol/L (20-32); Creatinine* 0.7 mg/dL (0.5-1.5); Est. Creatinine Clearance* 109.59; Estimated Glomerular Filt Rate 122 ml/min; Glucose* 99 mg/dL (60-115)
[2024-01-25] MEDS: 0.9 % SODIUM CHLORIDE 500 ML 500 ML IV (14:18)
[2024-01-25 14:50] VITALS: BP 112/74; PULSE 82; RESP 14; O2SAT 99
== END 2024-01-25 14:51 | disposition home or self-care (01) ==
PROVIDERS: Emergency Provider Family Medicine
DX: G89.18 Other acute postprocedural pain (principal)
CPT/HCPCS: 36415; 80048; 85025; 96374; 99283; J1885; J7030

== ENCOUNTER 2024-03-03 19:37 | Emergency (ER) | payer MEDICAID, SELFPAY ==
[2024-03-03 19:41] VITALS: BP 141/77; PULSE 90; RESP 24; TEMP 36.4; O2SAT 100; BMI 21.6
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
--- NOTE | 2024-03-03 20:01 | CT_ITS ---
Patient: FADIA RODRIGUES Facility:?[facility] Patient ID:?[id number] Site Patient ID:?[id number] Site :?1997 Study:?CT-Abdomen W/ ISOVUE 370-03/03/2024 8:51:11 PM Ordering Physician:ORLIN Final Report: INDICATION: Left-sided abdomen dog bite injury. TECHNIQUE: CT abdomen acquired without and with 100 cc Isovue 370 IV contrast. COMPARISON: None. FINDINGS: Lower chest: Unremarkable. Liver: Unremarkable. Normal in size and attenuation. No suspicious masses. Gallbladder and bile ducts: Unremarkable. No stones or inflammation. No biliary dilatation. Pancreas: Unremarkable. No mass or inflammation. Spleen: Unremarkable. Normal in size. No masses. Adrenal glands: Unremarkable. No nodules. Kidneys: Unremarkable. No suspicious masses, stones, or hydronephrosis. GI tract: Visualized GI tract appears within normal limits in caliber and appearance. Vasculature: Unremarkable. Mesenteric arteries are patent. Lymph nodes: No lymphadenopathy. Omentum/Peritoneum/Abdominal Wall: Left lateral superficial abdominal wall injury consistent with a dog bite wound. No intra-abdominal abnormality. Bones: Unremarkable for age. IMPRESSION: Superficial dog bite wound in the left lateral abdominal wall. Remainder of the exam is normal. Please note that all CT scans at this facility use dose modulation, iterative reconstruction, and/or weight-based dosing when appropriate to reduce radiation dose to as low as reasonably achievable. Dictated by Idris Barahona MD @ 03/03/2024 9:09:22 PM Signed by:?Idris Barahona MD @03/03/2024 9:09:22 PM (Electronic Signature)
[2024-03-03 20:19] LABS: Basophils Absolute Auto 0.04 K/uL (0.00-0.30); Basophils Percent Auto 0.6 % (0.0-3.0); Eosinophils Absolute Auto 0.09 K/uL (0.00-0.50); Eosinophils Percent Auto 1.3 % (0.0-7.0); Hematocrit 39.3 % (33.0-51.0); Hemoglobin* 13.8 gm/dL (12.0-16.0); Lymphocytes Percent Auto 29.9 % (20-44); Mean Corpuscular HGB Conc 35 gm/dL (32-36); Mean Corpuscular Hemoglobin 32 pg (26-34); Mean Corpuscular Volume 90 fL (80-100); Neutrophils Absolute Auto 3.96 K/uL (1.7-7.0); Neutrophils Percent Auto 59.2 % (42.0-72.0); Platelet Count* 319 K/uL (140-440); RDW Coefficient of Variation % 12.1 % (11.5-15.5); Red Blood Count 4.35 m/uL (4.00-5.20); White Blood Count* 6.69 K/uL (4.50-11.00)
[2024-03-03] MEDS: HYDROmorphone 0.5 mg/0.5 ml inj IVP (20:24)
[2024-03-03] MEDS: LORazepam 2 MG/ML inj 0.5 MG IVP (20:24)
[2024-03-03 20:32] LABS: Slide Review Reflex No
--- OUTSIDE RECORDS SUMMARY | 2024-03-03 20:34 | XMS_ITS | Clinical Summary ---
Author Name Unknown Organization [facility] Address [address] [place] [address] Care Team Providers Care Supervisory Examiner Name Role Phone Unavailable Primary Care Provider [...] PAP 2018 COVID-19 Vaccine ( season) 2023 PHQ-2 (once per calendar year) 2023 DTAP/TDAP/TD IMMUNIZATION (7 - Td or Tdap) 03/23/2024 03/23/2014, 09/23/2002, 04/06/1999, Additional history exists INFLUENZA VACCINE (Season Ended) 2024 09/29/2014, 09/29/2014, 08/02/2011, Additional history exists HEPATITIS B IMMUNIZATION Completed [...]
[2024-03-03 20:35] LABS: Chloride* 108 mmol/L (96-114); Potassium* 3.9 mmol/L (3.6-5.1); Sodium* 138 mmol/L (135-149)
--- OUTSIDE RECORDS SUMMARY | 2024-03-03 20:35 | XMS_ITS | Encounter Summary ---
Author Name Unknown Organization [facility] Address [address] [address] Phone Care Team Providers Care Manager Systems Name Role Phone Elissa Waggoner DO Primary Care Provider [phone] Elissa Waggoner DO Primary Care Provider [phone] Reason for Visit * Reason Comments Refill Request Encounter Details Date Type Department Care Team (Late st Contact Info) Description 05/14/2023 Refill [facility] INTERNAL MEDICINE [address] [place] [phone] Elissa Waggoner, DO [address] [place] [address] Refill Request Social History Tobacco Use Types [...] and 30 mg Er Dx:ADD 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 physical. DOA testin10/30/22 documented in this encounter [...] documented as of this encounter Care Teams Manager Systems Relationship Specialty Start Date End Date Elissa Waggoner DO [address] [address] PCP - General Internal Medicine 10/29/22 05/15/23 Elissa Waggoner DO [address] [address] PCP - General Internal Medicine 12/23/23 documented as of this encounter
--- OUTSIDE RECORDS SUMMARY | 2024-03-03 20:35 | XMS_ITS | Encounter Summary ---
Author Name Unknown Organization [facility] Address [address] [address] Phone Care Team Providers Care Sole Cutter Name Role Phone Elissa Waggoner DO Primary Care Provider [phone] Reason for Visit * Reason Onset Date Comments Prior Authorization 01/21/2024 Encounter Details Date Type Department Care Team (Late st Contact Info) Description 01/21/2024 Telephone [facility] INTERNAL MEDICINE [address] [place] [address] Selena Hernandez LPN Prior Authorization [...] 12/23/2023 added in this encounter Care Teams Sole Cutter Relationship Specialty Start Date End Date Elissa Waggoner DO [address] [address] PCP - General Internal Medicine 12/23/23 documented as of this encounter
--- OUTSIDE RECORDS SUMMARY | 2024-03-03 20:35 | XMS_ITS | Encounter Summary ---
Author Name Unknown Organization [facility] Address [address] [address] Phone Care Team Providers Care Explosive Ordnance Specialist Name Role Phone Edilson Elissa M DO Primary Care Provider [phone] Reason for Visit * Reason Onset Date Comments Medication Question 12/23/2023 Pharmacy Clarification 12/23/2023 Adderall Orders Encounter Details Date Type Department Care Team ([facility] Contact Info) Description 12/23/2023 Telephone [facility] CON[facility]CT [facility] [address] [place] [address] Helga Magallanes Medication Question; Pharmacy [...] Brand Name (LYNN). 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 Quantity: #30 for both. Days Supply: 30 days for both. Last Med Check: 12/23/23 DOA testin12/23/23 * Telephone Encounter - Helga Magallanes - 12/23/2023 2:23 PM CDT [facility] is requesting a call back [...] documented as of this encounter Care Teams Explosive Ordnance Specialist Relationship Specialty Start Date End Date Elissa Waggoner DO [address] [address] PCP - General Internal Medicine 12/23/23 documented as of this encounter
--- OUTSIDE RECORDS SUMMARY | 2024-03-03 20:35 | XMS_ITS | Encounter Summary ---
Author Name Unknown Organization [facility] [facility] Address [address] [address] Phone Care Team Providers Care Buffet Attendant Name Role Phone Elissa Waggoner DO Primary Care Provider [phone] Encounter Details Date Type Department Care Team [...] on filedocumented in this encounter Care Teams Buffet Attendant Relationship Specialty Start Date End Date Elissa Waggoner DO [address] [address] PCP - General Internal Medicine 12/23/23 documented as of this encounter
--- OUTSIDE RECORDS SUMMARY | 2024-03-03 20:35 | XMS_ITS | Encounter Summary ---
Author Name Unknown Organization [facility] Address [address] [address] Phone Care Team Providers Care Motorcycle Maker Name Role Phone Unavailable Primary Care Provider Unavailabl e Reason for Visit * Reason Comments Refill Request Encounter Details Date Type Department Care Team (Late st Contact Info) Description 12/03/2023 Refill [facility] INTERNAL MEDICINE [address] [place] [address] Elissa Waggoner, DO [address] [place], [place] [phone] Refill Request Social History Tobacco Use Types [...] back. Clinic phone number provided. Thank you. ICAL OPERATIONS AND TRAINING * Telephone Encounter - Hussein Mackey RN [...] is aware. No further questions. Thank you. ICAL OPERATIONS AND TRAINING * Telephone Encounter - Hussein Mackey RN [...] placed on hold again and call ended. ICAL OPERATIONS AND TRAINING * Telephone Encounter - Destiney Son - 12/05/2023 1:47 PM CST Patient calling regarding inquiring on status of prescription. Patient stated that the script needsto be denied in order for her insurance to cover it, which does not make sense to typewriter operator automatic. Patient is currently experiencing the worse migraine of my life. Routing to nursing for review. ICAL OPERATIONS AND TRAINING * Telephone Encounter - Hussein Mackey RN - 12/05/2023 11:12 AM CHEMICAL OPERATIONS AND TRAINING Called pharmacy to review request for order due to system issue with receiving Rx that was sent on 12/04/23 for Fioricet. Called and provided information for pharmacy. Confirmed order. No further questions. Thank you. ICAL OPERATIONS AND TRAINING * Telephone Encounter - Destiney Son - 12/05/2023 9:58 AM CST Pharmacy states that their system has been down and requesting a return call with verbal rx becausepatient is in pharmacy and upset that she cannot receive the script. Routing to nursing for review. ICAL OPERATIONS AND TRAINING * Telephone Encounter - Tosha Adkins RN - 12/04/2023 1:[address] Waggoner, medication request:Kasie Dx:migraine Per [place] COUNTER WAITER Last Date Dispensed:08/21/23 Quantity:30 Days Supply:7 Refills Remainin Last Med Check:06/11/23 upcoming 12/23/23 DOA testin06/11/23 ICAL OPERATIONS AND TRAINING documented in this encounter Plan of Treatment [...]
--- OUTSIDE RECORDS SUMMARY | 2024-03-03 20:35 | XMS_ITS | Clinical Summary ---
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 Abnormal ECG 10/08/2014 Alcohol abuse, in remission 09/27/2014 Appetite disorder 09/27/2014 Depression, major, recurrent 09/27/2014 Cannabis abuse, in remission 09/27/2014 Panic disorder without agoraphobia 09/27/2014 Self-destructive behavior 09/27/2014 Anxiety ADHD (attention deficit hyperactivity disorder) Encounters Date Type Department Care Team Description 01/17/2024 Lab Requisition [facility] C[facility] [phone] René Michaels MD from Last 3 Months [...] Comments Blood Pressure 112/72 10/10/2015 3:34 PM ROVING FRAME TENDER Pulse 66 10/10/2015 3:34 PM ROVING FRAME TENDER Temperature 36.1 ??C (97 ??F) 09/06/2015 1:30 PM ROVING FRAME TENDER Respiratory Rate 16 09/07/2015 6:25 PM ROVING FRAME TENDER Oxygen Saturation 100% 09/06/2015 1:30 PM ROVING FRAME TENDER Inhaled Oxygen Concentration - - Weight 45.3 kg (99 lb 14.4 oz) 10/10/2015 3:34 P M ROVING FRAME TENDER Height 160 cm (5' 2.99) 10/10/2015 3:34 PM ROVING FRAME TENDER Body Mass Index 17.7 10/10/2015 3:34 PM ROVING FRAME TENDER Plan of Treatment Health Maintenance Due Date [...] CDT René Michaels MD LAB BILL ONLY [facility]AL LABORATORY [address] [place] [address], [place] * PATH TISSUE EXAM (01/17/2024 11:13 AM CDT) Case Report Pathology Report ?Case: [id number] ? Authorizing Provider: ??René Michaels, ??Collected: ? 01/17/2024 111 ? MD ? Ordering Location: ? [facility] ?Received: ?01/18/2024 06 ? Pathologist: ? Kristine Sorto ? MD Eileen ? Specimens: ?? A) - Right Tonsil ? B) - Left Tonsil ? 01/20/2024 2:19 PM CDT [facility] Final Diagnosis A) TONSIL, RIGHT, TONSILLECTOMY: 1. Benign lymphoid hyperplasia 2. Negative for atypia or malignancy B) TONSIL, LEFT, TONSILLECTOMY: 1. Benign lymphoid hyperplasia 2. Negative for atypia or malignancy 01/20/2024 2:19 PM CDT [facility] Clinical Information Chronic tonsillitis 01/20/2024 2:19 PM CDT [facility] Gross Description A) Received [...] lesions or areas of hemorrhage/necros is. ??A phone representative section is submitted in 1 cassette. B) Received in formalin, labeled with the patient's name and left tonsil, is a tonsillectomy specimen 2.5 x 1.5 x 1.6 cm palatine tonsil characterized by glistening pink convoluted mucosa and miranda focally cauterized shaggy resection margin. ??Sectioning reveals pink-miranda cerebriform cut surfaces with no distinct solid mass lesions or areas of hemorrhage/necros is. ??A phone representative section is submitted in 1 cassette. ADW 01/18/2024 01/20/2024 2:19 PM CDT [facility]- ENTRAL LABORATORY Microscopic Description The final diagnosis is based on microscopic examination of appropriate sections of all specimens. 01/20/2024 2:19 PM CDT [facility]- ENTRAL LABORATORY Additional Information Interpreted at [facility] - [address], [place] [address] 01/20/2024 2:19 PM CDT [facility]- ENTRAL LABORATORY Other (Right Tonsil) 01/17/2024 11:13 AM CDT 01/18/2024 6:21 AM CDT Specimen (specimen) (Left Tonsil) 01/17/2024 11:17 AM CDT 01/18/2024 6:21 AM CDT René Michaels MD PATHOLOGY/CYT OLOGY [facility] LAB[facility]ATORY [address] [place] [address], [place] from Last 3 Months Advance Directives * Full Code (Latest Code Status on File) Date Activated Date Inactivated Comments 09/06/2015 7:35 AM 09/06/2015 7:02 PM * Full Code Date Activated Date Inactivated Comments 07/31/2015 4:20 PM 08/01/2015 1:43 PM Care Teams Diversified Crops Supervisor Relationship Specialty Start Date End Date Jelena Higgins DO [address] [address] PCP - General Family Practice 03/15/23
--- OUTSIDE RECORDS SUMMARY | 2024-03-03 20:35 | XMS_ITS | Encounter Summary ---
Author Name Unknown Organization [facility] [employer] [facility] Address [address] [address] Phone Care Team Providers Care Top Case Assembler Name Role Phone Elissa Waggoner DO Primary Care Provider [phone] Reason for Visit * Reason Onset Date Comments Pre-Op 12/30/2023 Encounter Details Date Type Department Care Team ([facility] Contact Info) Description 12/30/2023 Telephone [facility] [address] [place] [phone] Elissa Waggoner, [address] [place], [place] [phone] Pre-Op Social History Tobacco Use Types Packs/Day [...] patient to have surgery on 01/17/2024 at [facility]. Patient stated it was too far for her to drive and will go somewhere else and then hung up on medical receptionist medical assistant Idalmis Shannon. * Telephone Encounter - Elissa Waggoner DO - 01/16/2024 12:19 PM CDT This was an addended office note. If note not acceptable, will need to come in for exam. * Telephone Encounter - [place] Urbano - 01/16/2024 11:53 AM CDT [facility] is calling because the Preop didn't include a heart and lung assessment on it. That's a requirement. * Telephone Encounter - Selena Hernandez LPN - 12/31/2023 10:59 AM CDT Faxed recent note with addendum to [place] [facility] for [facility]NT * Telephone Encounter - Elissa Waggoner DO - 12/31/2023 9:38 AM CDT Note modified. Please fax to ENT/surgery center * Telephone Encounter - Helga Spence - 12/30/2023 11:23 AM CDT Patient called in to request Dr. Waggoner approve her ok to have surgery January 16 at [facility] for a tonsillectomy. She said she just had a medication check up with her on 12/22 and would like to know if this is okay to suffice for this. Routing to nursing for review documented in this encounter Plan of Treatment Not on file documented as of this encounter Visit Diagnoses Not on filedocumented in this encounter Care Teams Top Case Assembler Relationship Specialty Start Date End Date Elissa Waggoner DO [address] [address] PCP - General Internal Medicine 12/23/23 documented as of this encounter
--- OUTSIDE RECORDS SUMMARY | 2024-03-03 20:35 | XMS_ITS | Clinical Summary ---
Author Name Unknown Organization [facility] Address [address] [place] [address] Care Team Providers Care Outside Energy Sales Representatives Name Role Phone Mariella De Anda APRN, NITHIN Primary Care Provid er Source Comments You are receiving this document as you are listed as the primary care provider,follow-up provider, or the patient has been referred to you for consultation.This is in compliance with the Medicare andC[facility] Clinic [facility] Hospitalcaid EHR Incentive Program,which states Providers who transition their patient to another setting of careor provider of care or refers their patient to another provider of care shouldprovide summary care record for each transition of care or referral. [employer]on Allergies Active Allergy Reactions Criticality Noted Date Comments Amoxicillin 09/15/2019 Latex 09/15/2019 Review Contrast Media 1997 PN: LW CM1: CONTRAST- nka Reaction : Review Food Intolerance 05/09/2010 PN: LW FI1: nka Medications Medication Sig Dispensed Refills Start Date End Date Status topiramate (TOPAMAX) 50 MG tabletIndications:FLAVIA ANTHOYN SatJul 18, 2015 2:02 PM Received from: [...] Tablet (50 mcg) by mouth daily. Active Dwpwtkfhrk-PLCL-Gebpz ine 50-300-40 MG CAPS TAKE ONE CAPSULE [...] Overview: Major depressive disorder, recurrent episode, unspecified ([facility]) Self-injurious behavior 09/27/2014 School avoidance 09/27/2014 Immunizations Name Administration Dates Next Due 4vHPV (Gardasil) 09/29/2014,03/23/2014 9vHPV (Gardasil 9) 03/15/2020,07/01/2017 DTaP 09/23/2002, 9,04/01/1998,1997,1997 Flu Vac (3+ yrs) 09/29/2014,11/09/2002, 2 HepA Ped/Adol (1-18 yrs) 06/01/2008,08/01/2007 HepB, Unspecified Formulation 07/01/1998, 998,1997 Hib, Unspecified Formulation 04/06/1999, 04/01/1998,01/21/1998,1997 IPV (Polio) 09/23/2002, 8,01/21/1998,1997 Influenza IIV4 (Quadrivalent ) 0.5mL (71635) 09/29/2014,08/02/2011,10/11/2010,2008,07/29/2008,08/01/2007,11/06/2006 Influenza Vaccine TIV, Nasal 08/02/2011, 10/11/2010,05/20/2009,2007,08/01/2007,11/06/2006 [...] CDT Respiratory Rate 16 10/19/2014 5:13 PM SENIOR PRODUCT CONSULTANT Oxygen Saturation 100% 10/19/2014 8:30 PM SENIOR PRODUCT CONSULTANT Inhaled Oxygen Concentration - - Weight [...] 07/01/2017 COVID-19 Vaccine ( season) 2023 Influenza (Season Ended) 2024 014, 09/29/2014, 09/29/2014, Additional history exists Cervical Cancer Screening [...] AM CDT) Case Report Pap ? Case: [id number] ? Authorizing Provider: ??Mariella De Anda, RE, ??Collected: ? 06/03/2023 0844 ? CLINICAL RESEARCH ADMINISTRATOR ? Ordering Location: ? [facility] ?Received: ?06/03/2023 0854 ? Obstetrics/Gyneco logy ? First Screen: ?Alexia Jolly ? Specimen: ?Pap Test, Routine, Cervix/Endocervix ? 06/12/2023 1:12 PM CDT [facility] Pap Specimen Adequacy Satisfactory for evaluation, endocervical/salmon sformation zone component present. 06/12/2023 1:12 PM CDT [facility] Pap Interpretation (NILM) Negative for intraepithelial lesion or malignancy. 06/12/2023 1:12 PM CDT [facility] Pap Other Findings Fungal organisms morphologically consistent with Carolyne spp. 06/12/2023 1:12 PM CDT [facility] Pap Disclaimer The Pap test is a screening test to aid in the detection of cervical and vaginal cancers and their precursor lesions. It is not a diagnostic procedure and should not be used as the sole means of detecting malignancy. Both false-positive and false-negative results may occur. 06/12/2023 1:12 PM CDT [facility] Gross Description The specimen is received in SurePath fixative and properly labeled. 1 Pap-stained SurePath slide is prepared. 06/12/2023 1:12 PM CDT [facility] Embedded Images 1:12 PM CDT [facility] Other Specimen Type ENTIRE ENDOCERVIX / Unknown 06/03/2023 8:44 AM CDT 06/03/2023 8:54 AM CDT Comment:LMP: No LMP recorded . (Menstrual status: Irregular). Mariella De Anda APRN, CNP LAB PATHOLOG Y Performing Organization Address City/State/[facility] Co de Phone Number [facility] [address] * Chlamydia & GC (14 Years and Older): Vagina (06/03/2023 8:44 AM CDT) Chlamydia Trachomatis STD Not Detected Not Detected 06/03/2023 7:30 PM CDT [facility] N. gonorrhoeae STD Not Detected Not Detected 06/03/2023 7:30 PM CDT [facility] Swab STD SPECIMEN FROM VAGINA / Unknown Non-blood Collection / Unknown 06/03/2023 8:44 AM CDT 06/03/2023 8:51 AM CDT [facility] - 06/03/2023 7:30 PM CDT Test performed by Dietary Worker Mediated Amplification (TMA). Mariella De Anda APRN, CNP LAB_1 [facility] [address] [address], [facility] [phone] from Last 3 Months or Most Recently Relevant to Health Maintenance Advance Directives * Full Code (Latest Code Status on File) Date Activated Date Inactivated Comments 10/19/2014 9:37 PM 10/26/2014 4:08 PM * Full Code Date Activated Date Inactivated Comments 10/08/2014 1:32 PM 10/19/2014 9:35 PM Care Teams Outside Energy Sales Representatives Relationship Specialty Start Date End Date Mariella De Anda APRN, NITHIN [address] [facility] [address] [phone] PCP - General Nurse Practitioner 01/26/21
--- OUTSIDE RECORDS SUMMARY | 2024-03-03 20:35 | XMS_ITS | Encounter Summary ---
Author Name Unknown Organization [facility] Address [address] [address] Phone Care Team Providers Care Front Attendant Name Role Phone Flora Waggoner DO Primary Care Provider [phone] Reason for Visit * Reason Comments Follow Up Encounter Details Date Type Department Care Team (Latest Contact Info) Description 12/23/2023 1:30 PM CDT Office Visit [facility] [address] [place] [phone] Flora Waggoner DO [address] [place], [place] [phone] Attention deficit hyperactivity disorder (ADHD), combined type [...] Body Mass Index 23.46 10/29/2022 4:14 PM HELP DESK SUPPORT SPECIALIST documented in this encounter Functional Status Functional [...] mouth at bedtime. Do not crush. - htrnqidoyk-xgfibmptvyigk-zkctbcdl (Fioricet, Esgic) 50-325-40 MG oral tablet; Take [...] class IIa recommendation (JACC. 2014;64(21);e1-76). Session ID: [id number] Endnotes and bibliography available upon request: [email or web address] Other orders - Nalmefene HCl (Opvee) 2.7 MG/0.1ML Solution; Place 4 mg into one nostril one time for 1 dose. If your provider has ordered a radiology test that needs to be scheduled at any of the [place] facilities, for your convenience and to offer you the best service, we ask that you contact the [place] [facility] directly at [phone]. If you have an Ultrasound or DEXA order from [facility], those are performed directly by them. Please call [phone] ([place]) or [phone] ([place]) to schedule those tests. documented in this [...] from the original note were not included. [place] Office Visit Subjective Helga is a 28 [...] very frustrating. 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 Struggling with recurrently tonsillitis [...] mouth at bedtime. Do not crush. - hpdlbsivos-ckaufxnuabwnx-tlzgaxep (Fioricet, Esgic) 50-325-40 MG oral tablet; Take [...] class IIa recommendation (JACC. 2014;64(21);e1-76). Session ID: [id number] Endnotes and bibliography available upon request: [email or web address] Other orders - Nalmefene HCl (Opvee) 2.7 [...] class IIa recommendation (JACC. 2014;64(21);e1-76). Session ID: [id number] Endnotes and bibliography available upon request: [email or web address] * Assessment & Plan Note - Flora [...] Screen Negative Negative 12/23/2023 5:44 PM CDT [facility] Urine Phencyclidine Screen Negative Negative 12/23/2023 5:44 PM CDT [facility] Urine Cocaine Screen Negative Negative 12/12 5:44 PM [facility] Urine Methamphetamine Screen Qualitative Negative Negative 12/23/2023 5:44 PM [facility] Urine Morphine Screen Qualitative Negative Negative 12/23/2023 5:44 PM CDT [facility] Urine Amphetamines Screen Qualitative Positive(A ) Negative 12/23/2023 5:44 PM CDT [facility] Urine Benzodiazepines Screen Qualitative Negative Negative 12/23/2023 5:44 PM CDT [facility] Urine Tricyclic Antidepressants Screen Qualitative Negative Negative 12/23/2023 5:44 PM [facility] Urine Methadone Screen Qualitative Negative Negative 12/23/2023 5:44 PM [facility] Urine Barbiturates Screen Qualitative Negative Negative 12/23/2023 5:44 PM [facility] Urine Oxycodone Screen Qualitative Negative Negative 12/23/2023 5:44 PM [facility] Urine VOIDED URINE SPECIMEN / Unknown Non-blood collection / Unknown 12/23/2023 2:07 PM CDT 12/23/2023 2:07 PM CDT Narrative [facility] - 12/23/2023 5:44 PM CDT Positive [...] or employment purposes. Flora HAMILTON URINE ORDERABLES [facility] [address] [phone] * URINALYSIS, REFLEX TO MICROSCOPIC (12/23/2023 2:07 PM CDT) UA Color Yellow Light Yellow, Yellow 12/23/2023 2:23 PM CDT [facility] Urine Appearance Clear Clear 12/23/19 2:23 PM CDT [facility] Urine Specific [place] 1.025 1.005 - 1.030 12/23/2023 2:23 PM T [facility] Urine pH 7.5 5.0 - 8.0 12/23/2023 2:23 PM CDT [facility] Urine Leukocyte Esterase Negative Negative 12/23/2023 2:23 PM CDT [facility] Urine Nitrates Negative Negative 12/23/2023 2:23 PM CDT [facility] Urine Protein Negative Negative 12/23/2023 2:23 PM CDT [facility] Urine Glucose Negative Negative 12/23/2023 2:23 PM CDT [facility] Urine Ketones Negative Negative 12/23/2023 2:23 PM CDT [facility] Urine Urobilinogen Normal Normal 12/23/2023 2:23 PM CDT [facility] Urine Bilirubin Negative Negative 2:23 PM CDT [facility] Urine Blood Negative Negative 12/23/2023 2:23 PM CDT [facility] Urine CORRECTION OFFICER REFORMATORY MID-STREAM URINE SPECIMEN OBTAINED BY CLEAN CATCH PROCEDURE / Unknown Non-blood collection / Unknown 12/23/2023 2:07 PM CDT 12/23/2023 2:07 PM CDT Flora Waggoner DO EC URINE ORDERABLES [facility] [address] [id number] [phone] * (ABNORMAL) LIPID PANEL (12/23/2023 2:07 PM CDT) Cholesterol 176 100 - 200 mg/dL 12/23/2023 5:24 PM CDT [facility] Triglycerides 175(H) <150 mg/dL 12/23/2023 5:24 PM CDT [facility] HDL Cholesterol, Measured 100(H) 45 - 60 mg/dL 12/23/2023 5:24 PM CDT [facility] Non-HDL Cholesterol 76 <130 mg/dL 12/23/2023 5:24 PM CDT [facility] LDL Cholesterol, Calculated 41 <130 mg/dL 12/23/2023 5:24 PM CDT [facility] Blood BLOOD SPECIMEN / Unknown Venipuncture / Unknown 12/23/2023 2:07 PM CDT 12/23/2023 2:07 PM CDT Narrative [facility] - 12/23/2023 5:24 PM CDT Cholesterol [...] CHEMISTRY ORDERAB LES ABN Performing Organization Address City/[facility] Co de Phone Number [facility] [address] [phone] * THYROID SCREEN WITH REFLEX (12/23/2023 2:07 PM CDT) Thyroid Stimulating hormone 0.74 0.47 - 4.68 mIU/L 12/23/2023 5:41 PM CDT [facility] Blood BLOOD SPECIMEN / Unknown Venipuncture / Unknown 12/23/2023 2:07 PM CDT 12/23/2023 2:07 PM CDT Flora Wagogner DO EC CHEMISTRY ORDERAB LES ABN Performing Organization Address City/[facility] Co de Phone Number [facility] [address] [phone] * COMPREHENSIVE METABOLIC PANEL (12/23/2023 2:07 PM CDT) Sodium 138 135 - 144 mmol/L 12/23/2023 5:10 PM CDT [facility] Potassium 4.2 3.4 - 5.1 mmol/L 12/23/2023 5:10 PM CDT [facility] Chloride 100 98 - 107 mmol/L 12/23/2023 5:10 PM [facility] Carbon Dioxide 28 22 - 30 mmol/L 12/23/2023 5:10 PM [facility] Calcium 9.6 8.6 - 10.3 mg/dL 12/23/2023 5:10 PM [facility] Alkaline Phosphatase 60 38 - 126 U/L 12/23/2023 5:10 PM [facility] Aspartate Aminotransferase 26 14 - 36 U/L 12/23/2023 5:10 PM [facility] Alanine Aminotransferase 21 <35 U/L 12/23/2023 5:10 PM [facility] Glucose 96 74 - 100 mg/dL 12/23/2023 5:10 PM [facility] Blood Urea nitrogen 15 7 - 17 mg/dL 12/23/2023 5:10 PM [facility] Creatinine 0.97 0.52 - 1.04 mg/dL 12/23/2023 5:10 PM [facility] Protein, Total 6.8 6.3 - 8.2 g/dL 12/23/2023 5:10 PM [facility] Albumin 4.2 3.5 - 5.0 g/dL 12/23/2023 5:10 PM [facility] Bilirubin, Total 0.2 0.2 - 1.3 mg/dL 12/23/2023 5:10 PM [facility] Globulin 2.6 1.4 - 4.8 g/dL 12/23/2023 5:10 PM [facility] Anion Gap 10 5 - 15 mmol/L 12/23/2023 5:10 PM [facility] Glomerular Filtration Rate >60 >60 mL/min/1. 73 m*2 12/23/2023 5:10 PM [facility] Comment:This calculation use s CKD-EPI 2020 equation; it has not been validated in women. Blood BLOOD SPECIMEN / Unknown Venipuncture / Unknown 12/23/2023 2:07 PM CDT 12/23/2023 2:07 PM CDT Flora Waggoner DO CHEMISTRY ORDERAB LES [facility] [address] [place] [id number] [phone] * HEMOGRAM (12/23/2023 2:07 PM CDT) WBC 6.2 4.0 - 11.0 X10*3u/L 12/23/2023 2:31 PM CDT [facility] RBC 4.10 3.80 - 5.20 X10*6/uL 12/23/2023 2:31 PM CDT [facility] HGB 13.3 12.0 - 16.0 g/dl 12/23/2023 2:31 PM CDT [facility] HCT 39.1 35.0 - 47.0 % 12/23/2023 2:31 PM CDT [facility] MCV 95.4 80 - 98 fL 12/23/2023 2:31 PM CDT [facility] MCH 32.4 27.0 - 34.0 pg 12/23/2023 2:31 PM CDT [facility] MCHC 34.0 32 - 36 g/dl 12/23/2023 2:31 PM CDT [facility] PLT 331 150 - 420 X10*3/uL 12/23/2023 2:31 PM CDT [facility] RDW-CV 11.9 11.6 - 14.4 % 12/23/2023 2:31 PM CDT [facility] RDW-SD 40.3 36.5 - 46.3 fL 12/23/2023 2:31 PM CDT [facility] Blood BLOOD SPECIMEN / Unknown Venipuncture / Unknown 12/23/2023 2:07 PM CDT 12/23/2023 2:07 PM CDT Flora M Edilson DO EC HEMATOLOGY ORDERA BLES Performing Organization Address City/[facility]/ZIP Co de Phone Number [facility] [address] [place], [place] [address] [phone] * (ABNORMAL) LAMOTRIGINE (12/23/2023 2:07 PM CDT) Lamotrigine <0.2(L) 3.0 - 15.0 mcg/mL 12/24/2023 12:25 PM CDT [facility] Comment: ADDITIONAL INFORMATION This test was developed and its performance characteristics determined by [facility] in a manner consistent with CLIA requirements. This test has not been cleared or approved by the U.S. Food and Drug Administration. Test Performed by: [facility] - [address] [address] Director [facility]: Gregorio Morel M.D. Ph.D.; CLIA# [id number] Blood BLOOD SPECIMEN / Unknown Venipuncture / Unknown 12/23/2023 2:07 PM CDT 12/23/2023 2:07 PM CDT Flora HAMILTON LAB SEND OUT REAGAN LOONEY Performing Organization Address [facility]/ZIP Co de Phone Number [facility] [address] [place] [address] [phone] documented in this encounter Visit Diagnoses Diagnosis [...] 12/23/2023 added in this encounter Care Teams Front Attendant Relationship Specialty Start Date End Date Flora Waggoner DO [address] [address] PCP - General Internal Medicine 12/23/23 documented as of this encounter
--- OUTSIDE RECORDS SUMMARY | 2024-03-03 20:35 | XMS_ITS | Encounter Summary ---
Author Name Unknown Organization [facility] Address [address] [address] Phone Care Team Providers Care Fish Hatchery Man Name Role Phone Unavailable Primary Care Provider Unavailabl e Reason for Visit * Reason Onset Date Comments Refill Request 12/13/2023 Encounter Details Date Type Department Care Team (Late st Contact Info) Description 12/13/2023 Refill [facility] [address] [place] [phone] Lorelei Cage RN Refill Request Social [...] the patient's home address by MARIJA Walters. TITY ACCESS MANAGEMENT ARCHITECT * Telephone Encounter - Lorelei Cage [...] Adderall 30mg XR Dx: ADHD Per [place] TECHNICAL SOLUTION ARCHITECT Last Date Dispensed: 11/16/23 on both Quantity: #30 on both Days Supply: #30 on both Last Med Check: 06/11/23 DOA testin06/11/23 TITY ACCESS MANAGEMENT ARCHITECT documented in this encounter Plan of [...]
--- OUTSIDE RECORDS SUMMARY | 2024-03-03 20:35 | XMS_ITS | Encounter Summary ---
Author Name Unknown Organization [facility] Address [address] [address] Phone Care Team Providers Care Clean Room Assembler Name Role Phone Unavailable Primary Care Provider Unavailabl e Reason for Visit * Reason Onset Date Comments Medication Problem 12/10/2023 Patient reque sting Capsules. Requires PA to be denied prior to patient being able to pay out of pocket due to Insurance. Encounter Details Date Type Department Care Team (Late st Contact Info) Description 12/10/2023 Telephone [facility] [address] [place] [phone] Imer Hoffman, TRACK SERVICE WORKER Medication Problem (Patient requesting Capsules. Requires PA [...] Sent to pharmacy by fax. Thank you. SUPPORT SERVICES * Telephone Encounter - Lorelei Cage RN - 12/16/2023 10:33 AM RN SUPPORT SERVICES PA denied. We are not approving your request because: - Documentation has not shown that you have tried and failed ridckqftfy-llgfmyhmprbtc-lglutpvr 50 mg-325 mg-40 mg tablets. We realize this may not be the answer you expected. We made this decision based on: - Information from your doctor - Your [facility] Drug List Coverage Criteria for butalbitalacetaminophen- caffeine 50 mg-300 mg-40 mg capsules SUPPORT SERVICES * Telephone Encounter - Lorelei Cage RN - 12/13/2023 4:52 PM CST PA started through Epic - Questions answered. Awaiting a response. SUPPORT SERVICES * Telephone Encounter - Nico Mckenzie MD - 12/13/2023 4:45 PM CST It printed out.. gave to Imer SUPPORT SERVICES * Addendum Note - Nico Mckenzie MD - 12/13/2023 4:45 PM CSTAddended by: NICO MCKENZIE on: 12/13/2023 04:45 PM Modules accepted: Orders SUPPORT SERVICES * Addendum Note - Hussein Dumont RN - 12/13/2023 3:57 PM CSTAddended by: HUSSEIN DUMONT on: 12/13/2023 03:57 PM Modules accepted: Orders SUPPORT SERVICES * Telephone Encounter - Hussein Dumont RN [...] 50-300-400 MG Capsules Dx: Migraine Per [place] TRANSPORTATION SOLUTIONS MANAGER Last Date Dispensed: 08/21/23 Quantity: #30 Days Supply: 7 days Last Med Check: 06/11/23 DOA testin06/11/23 SUPPORT SERVICES * Telephone Encounter - Paola Bojorquez - 12/13/2023 2:14 PM CST [facility] ([place]) states patient does not want to change from capsules to tablets for the Butalbital-Acetaminophen Caffeine. Pharmacy states to continue pursuing PA for capsules. Ok to call pharmacy if any questions. Thank you SUPPORT SERVICES * Telephone Encounter - Lorelei Cage RN - 12/12/2023 8:[address] Mckenzie - please see the pended prescription for the formulary alternative to what was originally prescribed. Please sign as appropriate. SUPPORT SERVICES * Telephone Encounter - Imer Hoffman CMA - 12/10/2023 8:27 AM CST PA started via Epic. SUPPORT SERVICES documented in this encounter Plan of Treatment [...]
--- OUTSIDE RECORDS SUMMARY | 2024-03-03 20:35 | XMS_ITS | Referral Summary ---
Author Name Unknown Organization [place] Address [address] [place] [address] Care Team Providers Care Licensed Audiologist Name Role Phone Unavailable Primary Care Provider [...]
--- OUTSIDE RECORDS SUMMARY | 2024-03-03 20:35 | XMS_ITS | Clinical Summary ---
Author Name Unknown Organization [facility] [employer] [facility] Address [address] [address] Phone Care Team Providers Care Clinical Law Professor Name Role Phone EdilsonElissa Sylvain DO Primary Care Provider [phone] Allergies Active Allergy Reactions Criticality Noted Date [...] risk surgeries, a class IIa recommendation (JACC. 2014;64(36);e1-76). Session ID: [id number] Endnotes and bibliography available upon request: [email or web address] Weight gain 12/23/2023 Last Assessment & Plan: [...] 02/22/2016 Urticaria, chronic 01/31/2016 Overview: Impression - [id number]: willl tx with medrol dose dash to see results. Is to have an OV soon and can discuss results then. Acne vulgaris 01/19/2016 Overview: Impression - [id number]: -currently taking minocycline and using finacea prn - Refill finacea foam; Impression - [id number]: off minocin to see if this is causing her hair loss; Impression - 24Beh5314: derm to see; Impression - [id number]: will tx with topical benzyl peroxie with clind and oral minocin. FU in one month Allergic conjunctivitis 01/19/2016 Overview: Impression - [id number]: pataday ordered Migraine 01/19/2016 Overview: Replax caused lightheadedness Tried sumatriptan in past Last Assessment & Plan: Stable with topiramate daily and as needed Fioricet. Chronic constipation 12/26/2015 Overview: Impression - [id number]: Would like to involve GI - may benefit from linzess-type medication. For now, may continue colace BID. Concern regarding impact of AN on this issue. Insomnia 12/26/2015 Last Assessment & Plan: Managed with trazodone for sleep WPW (Pfjsu-Mgslevdct-Nvhex syndrome) 04/14/2015 Orthostasis 10/08/2014 ADHD 09/27/2014 Overview: [...] Type Department Care Team Description 01/21/[address] [facility] [address] [place] [phone] Selena Hernandez LPN Prior Authorization 12/30/2023 Telephone [facility] [address] [place] [phone] Elissa Waggoner DO Pre-Op 12/23/2023 1:30 PM CDT Office Visit [facility] [address] [place] [phone] Elissa Waggoner, Attention deficit hyperactivity disorder (ADHD), combined type (Primary Dx); Migraine without aura and without status migrainosus, not intractable; Hypothyroidism, unspecified type; Anxiety; Weight gain; Primary insomnia; Screening for cardiovascular condition; Recurrent streptococcal pharyngitis; Current mild episode of major depressive disorder without prior episode (HCC); Preop examination 12/23/2023 Telephone [facility] [address] [place] [address] Helga Magallanes Medication Question; Pharmacy Clarification (Adderall Orders) 12/23/2023 Travel 12/13/[address] [facility] [address] [place] [address] Lorelei Cage, RN Refill Request 12/10/[address] [facility] [address] [place] [address] Imer Hoffman CMA Medication Problem (Patient requesting Capsules. Requires PA to be denied prior to patient being able to pay out of pocket due to Insurance. ) from Last 3 Months Immunizations Name Administration [...] 165.1 cm (5' 5) 10/29/2022 4:14 PM COMPUTER ENGINEERING TECHNICIAN Body Mass Index 23.46 10/29/2022 4:14 PM COMPUTER ENGINEERING TECHNICIAN Plan of Treatment Health Maintenance Due Date [...] Yellow, Yellow 12/23/2023 2:[address] [facility] Urine Appearance Clear Clear 12/23/19 2:[address] [facility] Urine Specific [place] 1.025 1.005 - 1.030 12/23/2023 2:[address] [facility] Urine pH 7.5 5.0 - 8.0 12/23/2023 2:[address] [facility] Urine Leukocyte Esterase Negative Negative 12/23/2023 2:[address] [facility] Urine Nitrates Negative Negative 12/23/2023 2:[address] [facility] Urine Protein Negative Negative 12/23/2023 2:[address] [facility] Urine Glucose Negative Negative 12/23/2023 2:[address] [facility] Urine Ketones Negative Negative 12/23/2023 2:[address] [facility] Urine Urobilinogen Normal Normal 12/23/2023 2:[address] [facility] Urine Bilirubin Negative Negative 2:[address] [facility] Urine Blood Negative Negative 12/23/2023 2:[address] [facility] Urine TUGBOAT CAPTAIN MID-STREAM URINE SPECIMEN OBTAINED BY CLEAN CATCH PROCEDURE / Unknown Non-blood collection / Unknown 12/23/2023 2:07 PM CDT 12/23/2023 2:07 PM CDT Elissa HAMILTON URINE ORDERABLES [facility] [address] [place] [address], [facility] [phone] * (ABNORMAL) URINE DRUG SCREEN (12/23/2023 2:07 PM CDT) Urine Tetrahydrocannabinol Screen Negative Negative 12/23/2023 5:44 PM CDT [facility] Urine Phencyclidine Screen Negative Negative 12/23/2023 5:44 PM CDT [facility] Urine Cocaine Screen Negative Negative 12/12 5:44 PM CDT [facility] Urine Methamphetamine Screen Qualitative Negative Negative 12/23/2023 5:44 PM CDT [facility] Urine Morphine Screen Qualitative Negative Negative 12/23/2023 5:44 PM [facility] Urine Amphetamines Screen Qualitative Positive(A ) Negative 12/23/2023 5:44 PM CDT [facility] Urine Benzodiazepines Screen Qualitative Negative Negative 12/23/2023 5:44 PM CDT [facility] Urine Tricyclic Antidepressants Screen Qualitative Negative Negative 12/23/2023 5:44 PM CDT [facility] Urine Methadone Screen Qualitative Negative Negative 12/23/2023 5:44 PM CDT [facility] Urine Barbiturates Screen Qualitative Negative Negative 12/23/2023 5:44 PM [facility] Urine Oxycodone Screen Qualitative Negative Negative 12/23/2023 5:44 PM CDT [facility] Urine VOIDED URINE SPECIMEN / Unknown Non-blood collection / Unknown 12/23/2023 2:07 PM CDT 12/23/2023 2:07 PM CDT Narrative [facility] - 12/23/2023 5:44 [...] purposes: e.g. Legal or employment purposes. Elissa Waggoner DO URINE ORDERABLES [facility] [address] [phone] * COMPREHENSIVE METABOLIC PANEL (12/23/2023 2:07 PM T) Sodium 138 135 - 144 mmol/L 12/23/2023 5:10 PM [facility] Potassium 4.2 3.4 - 5.1 mmol/L 12/23/2023 5:10 PM [facility] Chloride 100 98 - 107 mmol/L 12/23/2023 5:10 PM [facility] Carbon Dioxide 28 22 - 30 mmol/L 12/23/2023 5:10 PM [facility] Calcium 9.6 8.6 - 10.3 mg/dL 12/23/2023 5:10 PM [facility] Alkaline Phosphatase 60 38 - 126 U/L 12/23/2023 5:10 PM [facility] Aspartate Aminotransferase 26 14 - 36 U/L 12/23/2023 5:10 PM [facility] Alanine Aminotransferase 21 <35 U/L 12/23/2023 5:10 PM [facility] Glucose 96 74 - 100 mg/dL 12/23/2023 5:10 PM [facility] Blood Urea nitrogen 15 7 - 17 mg/dL 12/23/2023 5:10 PM [facility] Creatinine 0.97 0.52 - 1.04 mg/dL 12/23/2023 5:10 PM [facility] Protein, Total 6.8 6.3 - 8.2 g/dL 12/23/2023 5:10 PM [facility] Albumin 4.2 3.5 - 5.0 g/dL 12/23/2023 5:10 PM [facility] Bilirubin, Total 0.2 0.2 - 1.3 mg/dL 12/23/2023 5:10 PM CDT [facility] Globulin 2.6 1.4 - 4.8 g/dL 12/23/2023 5:10 PM CDT [facility] Anion Gap 10 5 - 15 mmol/L 12/23/2023 5:10 PM CDT [facility] Glomerular Filtration Rate >60 >60 mL/min/1. 73 m*2 12/23/2023 5:10 PM CDT [facility] Comment:This calculation use s CKD-EPI 2020 equation; it has not been validated in women. Blood BLOOD SPECIMEN / Unknown Venipuncture / Unknown 12/23/2023 2:07 PM CDT 12/23/2023 2:07 PM CDT Elissa Waggoner DO CHEMISTRY ORDERAB LES Performing Organization Address City/State/[facility] Co de Phone Number [facility] [address] [place] [address] * HEMOGRAM (12/23/2023 2:07 PM CDT) WBC 6.2 4.0 - 11.0 X10*3u/L 12/23/2023 2:[address] [facility] RBC 4.10 3.80 - 5.20 X10*6/uL 12/23/2023 2:[address] [facility] HGB 13.3 12.0 - 16.0 g/dl 12/23/2023 2:[address] [facility] HCT 39.1 35.0 - 47.0 % 12/23/2023 2:[address] [facility] MCV 95.4 80 - 98 fL 12/23/2023 2:[address] [facility] MCH 32.4 27.0 - 34.0 pg 12/23/2023 2:[address] [facility] MCHC 34.0 32 - 36 g/dl 12/23/2023 2:[address] [facility] PLT 331 150 - 420 X10*3/uL 12/23/2023 2:[address] [facility] RDW-CV 11.9 11.6 - 14.4 % 12/23/2023 2:[address] [facility] RDW-SD 40.3 36.5 - 46.3 fL 12/23/2023 2:[address] [facility] Blood BLOOD SPECIMEN / Unknown Venipuncture / Unknown 12/23/2023 2:07 PM CDT 12/23/2023 2:07 PM CDT Elissa HAMILTON HEMATOLOGY ORDERA BLES Performing Organization Address City/[facility] Co de Phone Number [facility] [address] [phone] * (ABNORMAL) LAMOTRIGINE (12/23/2023 2:07 PM CDT) Lamotrigine <0.2(L) 3.0 - 15.0 mcg/mL 12/24/2023 12:25 PM CDT [facility] Comment: ADDITIONAL INFORMATION This test was developed and its performance characteristics determined by [facility] in a manner consistent with CLIA requirements. This test has not been cleared or approved by the U.S. Food and Drug Administration. Test Performed by: [facility] [address] [place] [address] Hypnotherapist: Gregorio Morel M.D. Ph.D.; CLIA# [id number] Blood BLOOD SPECIMEN / Unknown Venipuncture / Unknown 12/23/2023 2:07 PM CDT 12/23/2023 2:07 PM CDT Elissa HAMILTON LAB SEND OUT [employer] [facility] [address] [place] [address], [facility] [phone] * THYROID SCREEN WITH REFLEX (12/23/2023 2:07 PM CDT) Thyroid Stimulating hormone 0.74 0.47 - 4.68 mIU/L 12/23/2023 5:41 PM CDT [facility] Blood BLOOD SPECIMEN / Unknown Venipuncture / Unknown 12/23/2023 2:07 PM CDT 12/23/2023 2:07 PM CDT Elissa Waggoner DO EC CHEMISTRY ORDERAB LES ABN Performing Organization Address City/[facility]/ZIP Co de Phone Number [facility] [address] [place] [address], [facility] [phone] * (ABNORMAL) LIPID PANEL (12/23/2023 2:07 PM CDT) Cholesterol 176 100 - 200 mg/dL 12/23/2023 5:24 PM CDT [facility] Triglycerides 175(H) <150 mg/dL 12/23/2023 5:24 PM CDT [facility] HDL Cholesterol, Measured 100(H) 45 - 60 mg/dL 12/23/2023 5:24 PM CDT [facility] Non-HDL Cholesterol 76 <130 mg/dL 12/23/2023 5:24 PM CDT [facility] LDL Cholesterol, Calculated 41 <130 mg/dL 12/23/2023 5:24 PM CDT [facility] Blood BLOOD SPECIMEN / Unknown Venipuncture / Unknown 12/23/2023 2:07 PM CDT 12/23/2023 2:07 PM CDT Narrative [facility] - 12/23/2023 5:24 [...] CHEMISTRY ORDERAB LES ABN Performing Organization Address City/State/[facility] Co de Phone Number [facility] [address] [phone] from Last 3 Months Care Teams Clinical Law Professor Relationship Specialty Start Date End Date Elissa Waggoner DO [address] [address] PCP - General Internal Medicine 12/23/23
[2024-03-03 20:37] LABS: Creatinine* 0.7 mg/dL (0.5-1.5); Est. Creatinine Clearance* 109.59; Estimated Glomerular Filt Rate 122 ml/min
[2024-03-03 20:38] LABS: Anion Gap 11 mEq/L (7-15); Blood Urea Nitrogen* 13 mg/dL (5-24); Calcium* 9.3 mg/dL (8.4-10.6); Carbon Dioxide* 19 mmol/L (20-32); Glucose* 89 mg/dL (60-115)
[2024-03-03] MEDS: 0.9 % SODIUM CHLORIDE 1000 ml 1,000 ML IV (20:43)
== END 2024-03-03 22:45 | disposition home or self-care (01) ==
PROVIDERS: Emergency Provider Family Medicine
DX: S30.871A Other superficial bite of abdominal wall, initial encounter (principal); W54.0XXA Bitten by dog, initial encounter
CPT/HCPCS: 12001; 36415; 74160; 80048; 85025; 96374; 96375; 99283; 99284; J1170; J2060; J7030; Q9967

== ENCOUNTER 2024-10-29 04:35 | Emergency (ER) | payer MEDICAID, SELFPAY ==
--- OUTSIDE RECORDS SUMMARY | 2024-10-29 04:37 | XMS_ITS | Clinical Summary ---
Author Organization [facility] Address [place], [place] [address] Care Team Providers Care Jewel Gauger Name Role Phone Jelena Higgins DO Primary Care Provider [phone] Allergies No known active allergies Medications dextroamphetami ne-amphetamine (ADDERALL XR) 20 mg Extended-Releas e capsule Take 1 capsule by mouth every morning. 0 Active traZODone (DESYREL) 50 mg tablet Take 1 tablet by mouth at bedtime. 0 Active topiramate (TOPAMAX) 50 mg tablet Take 1 tablet by mouth 2 times daily. Active Patients Unique Medication From Home control pills Active Active Problems Problem Noted Date Diagnosed Date WPW (Fbbzx-Zibzpzvfi-Ijzrb syndrome) 08/02/2015 Abnormal ECG 10/08/2014 Alcohol abuse, in remission 09/27/2014 Appetite disorder 09/27/2014 Depression, major, recurrent 09/27/2014 Cannabis abuse, in remission 09/27/2014 Panic disorder without agoraphobia 09/27/2014 Self-destructive behavior 09/27/2014 Anxiety ADHD (attention deficit hyperactivity disorder) Family History Relation Name Status Comments Brother Alive Father Alive Mother Alive Social History Tobacco Use Types Packs/Day Years Used Date Smoking Tobacco: Former Smokeless Tobacco: Never Tobacco Cessation:Counseling Given: Yes Comments:E-cig Alcohol Use Standard Drinks/Week Comments No 0 (1 standard drink = 0.6 oz pur e alcohol) Comments No Sex and Gender Information Value Date Recorded Sex Assigned at Not on file Legal Sex Female 7:06 AM RIP SAW OPERATOR Gender Identity Not on file Sexual Orientation Not on file Obstetrics History Last Filed Vital Signs Vital Sign Reading Time Taken Comments Blood Pressure 112/72 10/10/2015 3:34 PM RIP SAW OPERATOR Pulse 66 10/10/2015 3:34 PM RIP SAW OPERATOR Temperature 36.1 C (97 F) 09/06/2015 1:30 PM RIP SAW OPERATOR Respiratory Rate 16 09/07/2015 6:25 PM RIP SAW OPERATOR Oxygen Saturation 100% 09/06/2015 1:30 PM RIP SAW OPERATOR Inhaled Oxygen Concentration - - Weight 45.3 kg (99 lb 14.4 oz) 10/10/2015 3:34 P M RIP SAW OPERATOR Height 160 cm (5' 2.99) 10/10/2015 3:34 PM RIP SAW OPERATOR Body Mass Index 17.7 10/10/2015 3:34 PM RIP SAW OPERATOR Plan of Treatment Health Maintenance Due [...] for age 21-65 2018 COVID-19 vaccine series (2023- season) 2024 Influenza for age 9-49 06/14/2024 Pneumococcal series for age 6-49 Aged Out No longer eligible based on patient's age to complete this topic Insurance [facility] [place] [id number] [place] [id number] Advance Directives * Full Code (Latest Code Status on File) Date Activated Date Inactivated Comments 09/06/2015 7:35 AM 09/06/2015 7:02 PM * Full Code Date Activated Date Inactivated Comments 07/31/2015 4:20 PM 08/01/2015 1:43 PM Care Teams Jewel Gauger Relationship Specialty Start Date End Date Jelena Higgins DO [address] [address] PCP - General Family Practice 03/15/23
--- OUTSIDE RECORDS SUMMARY | 2024-10-29 04:37 | XMS_ITS | Clinical Summary ---
Author Organization [facility] Address [address] [place] [id number] Care Team Providers Care President Ceo & Founder Name Role Phone Unavailable Primary Care Provider Unavailabl e Resolved Problems Problem Noted Date Diagnosed Date Resolved Date Ankle pain 01/30/2013 11/12/2013 Other postprocedural status(V45.89) 01/30/2013 11/12/2013 Social History Tobacco Use Types Packs/Day Years Used Date Smoking Tobacco: Never Assessed Adolescent Education Answer Date Record ed Getting School Help Needed Not on file 07/30 Comments Unknown Sex and Gender Information Value Date Recorded Sex Assigned at Not on file Legal Sex Female 4:19 AM 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 SYSTEM 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 Gender Identity Not on file Sexual Orientation Not on file Plan of Treatment Health Maintenance Due Date Last Done Comments ADVANCE CARE PLANNING 1997 ANNUAL REVIEW OF HM ORDERS 1997 YEARLY PREVENTIVE VISIT 2000 HIV SCREENING 2012 HEPATITIS C SCREENING 2015 PAP 2018 PHQ-2 (once per calendar year) 2023 DTAP/TDAP/TD IMMUNIZATION (7 - Td or Tdap) 03/23/2024 03/23/2014, 09/23/2002, 04/06/1999, Additional history exists COVID-19 Vaccine ( season) 2024 INFLUENZA VACCINE (#1) 2024 4, 09/29/2014, 08/02/2011, Additional history exists RSV VACCINE (1 - 1-dose 75+ series) 2072 HEPATITIS B IMMUNIZATION Completed 998, 01/21/1998, 1997 Pneumococcal Vaccine: Pediatrics (0 to 5 Years) and At-Risk Patients (6 to 49 Years) Aged Out 08/20/2000 No longer eligible based on patient's age to complete this topic HPV IMMUNIZATION Completed 07/01/2017, , 03/23/2014 MENINGITIS IMMUNIZATION Aged Out No l onger eligible based on patient's age to complete this topic RSV MONOCLONAL ANTIBODY Aged Out No l onger eligible based on patient's age to complete this topic Insurance [employer]
--- OUTSIDE RECORDS SUMMARY | 2024-10-29 04:37 | XMS_ITS | Encounter Summary ---
Author Organization [facility] Address [address] [address] Phone Care Team Providers Care Admitting Representative Name Role Phone Elissa Waggoner DO Primary Care Provider [phone] Reason for Visit * Reason Comments Refill Request Encounter Details Date Type Department Care Team (Late st Contact Info) Description 09/18/2024 Refill [facility] [address] [place] [address] Elissa Waggoner DO [address] [place] [address] Refill Request Social History Tobacco Use Types Packs/Day Years Used Date Smoking Tobacco: Passive Smo ke Exposure - Never Smoker Smokeless Tobacco: Never Alcohol Use Standard Drinks/Week Comments Yes 0 (1 standard drink = 0.6 oz pur e alcohol) PHQ-2 Answer Date Recorded PHQ-2 Total 0 07/21/2024 Education Answer Date Recorded What is the highest level of school you have completed or the highest degree you have received? 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 Not on file Not on file documented as of this encounter Functional Status * Patient's Vision Adequate to Safely Complete Daily Activities Answer Date of Assessment Author Yes 07/09/2020 6:21 AM CDT Mario Hendrix RN * Patient's Memory Adequate to Safely Complete Daily Activities Answer Date of Assessment Author Yes 07/09/2020 6:21 AM Mario Boone RN documented as of this encounter Mental Status * Patient's Judgment Adequate to Safely Complete Daily Activities Answer Entry Date Author Yes 07/09/2020 6:21 AM Mario Boone RN documented in this encounter Ordered Prescriptions Prescription Sig Dispense Quantity Refills Last Filled Start Date End Date LORazepam (Ativan) 0.5 MG tabletIndications: Anxiety TAKE ONE TABLET BY MOUTH TWICE DAILY NEEDED FOR ANXIETY 10 Tablet 09/21/2024 documented in this encounter Miscellaneous Notes * Telephone Encounter - Corina Troy RN - 09/21/2024 9:56 AM SOLAR SYSTEM DESIGNER Hi Dr. Waggoner- Requested Prescriptions Pending Prescriptions Disp Refills LORazepam (ATIVAN) 0.5 MG tablet [Pharmacy Med Name: LORazepam Oral Tablet 0.5 MG] 10 Tablet 0 Sig: TAKE ONE TABLET BY MOUTH TWICE DAILY NEEDED FOR ANXIETY Pt contacted to verify if they are still taking this medication: Yes Date last seen for diagnosis: 07/21/24 med check Date started: 2020 Filled by: Dr. Waggoner Last labs: 12/23/23 PDMP reviewed: Yes last sold 07/22/24 Why this cannot be refilled per protocol: controlled medication Routing to provider for approval/denial. R SYSTEM DESIGNER documented in this encounter Plan of Treatment Not on file documented as of this encounter Visit Diagnoses Diagnosis Anxiety Anxiety state, unspecified documented in this encounter Discontinued Medications Medication Sig Discontinue Reason Start Date End Da te LORazepam (Ativan) 0.5 MG tabletIndications:Anxiet y Take 1 Tablet by mouth two times a day as needed for Anxiety. 07/21/2024 09/21/2024 documented as of this encounter Care Teams Admitting Representative Relationship Specialty Start Date End Date Elissa Waggoner DO [address] [address] PCP - General Internal Medicine 06/18/24 documented as of this encounter
--- OUTSIDE RECORDS SUMMARY | 2024-10-29 04:37 | XMS_ITS | Clinical Summary ---
Author Organization [facility] Address [address] [address] Phone Care Team Providers Care Camera Engineer Name Role Phone Edilson Elissa M DO Primary Care Provider [phone] Allergies Active Allergy Reactions Criticality Noted Date Comments Amoxicillin Unknown 01/07/2019 Category: Allergy; Annotation - 07Jan2019: Rash Diagnostic X-Ray Materials Unknown 1997 PN: YAS CM1: CONTRAST- nka Reaction : Gluten Meal Abdominal pain Low 04/06/2022 Latex RASH Medium 07/09/2020 Milk Protein Abdominal pain Low 04/06/2022 Medications ondansetron (Zofran ODT) 4 MG disintegrating tablet Take 4 mg by mouth. 03/29/20 22 Active cetirizine (ZyrTEC) 10 MG tablet Take 1 tablet by mouth every day As Needed for allergy symptoms* 11/09/19 24 Active buPROPion XL (Wellbutrin XL) 300 MG 24 hour extended release tabletIndications: Attention deficit hyperactivity disorder (ADHD), combined type,Anxiety Take 1 Tablet by mouth one time a day. 90 Tablet 3 12/23/19 24 Active topiramate (Topamax) 200 MG tabletIndications: Migraine without aura and without status migrainosus, not intractable Take 1 Tablet by mouth at bedtime. Do not crush. 90 Tablet 3 12/23/19 24 Active traZODone (Desyrel) 50 MG tabletIndications: Primary insomnia Take 1 Tablet by mouth at bedtime. 90 Tablet 3 12/23/19 24 Active levothyroxine (Synthroid) 75 MCG tabletIndications: Hypothyroidism, unspecified type Take 1 Tablet by mouth one time a day. 90 Tablet 3 12/24/19 24 Active Opvee 2.7 MG/0.1ML Solution Place 4 mg into one nostril one time for 1 dose.* 12/23/19 24 Active omeprazole (PriLOSEC) 10 MG delayed-release capsule Take 10 mg by mouth one time a day. Take before meals. Do not crush. Active butalbital-acetami nophen-caffeine (Fioricet, Esgic) 50-325-40 MG oral tabletIndications: Migraine without aura and without status migrainosus, not intractable Take 1 Tablet by mouth every six hours as needed for Pain. Acetaminophen should be limited to 4000 mg per day. 30 Tablet 5 07/21/20 24 Active amphetamine-dextro amphetamine (Adderall) 20 MG tabletIndications: Attention deficit hyperactivity disorder (ADHD), unspecified ADHD type Take 1 Tablet by mouth one time a day. To avoid insomnia, last daily dose should be taken no less than 6 hours before bed. 30 Tablet 07/21/20 24 Active amphetamine-dextro amphetamine (Adderall) 20 MG tabletIndications: Attention deficit hyperactivity disorder (ADHD), unspecified ADHD type Take 1 Tablet by mouth one time a day. To avoid insomnia, last daily dose should be taken no less than 6 hours before bed. 30 Tablet 08/18/20 24 Active amphetamine-dextro amphetamine (Adderall) 20 MG tabletIndications: Attention deficit hyperactivity disorder (ADHD), unspecified ADHD type Take 1 Tablet by mouth one time a day. To avoid insomnia, last daily dose should be taken no less than 6 hours before bed. 30 Tablet 09/22/20 24 Active LORazepam (Ativan) 0.5 MG tabletIndications: Anxiety TAKE ONE TABLET BY MOUTH TWICE DAILY NEEDED FOR ANXIETY 10 Tablet 09/21/20 24 Active Adderall XR 30 MG 24 hour capsuleIndications :Attention deficit hyperactivity disorder (ADHD), unspecified ADHD type Take 1 Capsule by mouth every morning. Should be given by noon. Swallow whole or open,sprinkle contents on food 30 Capsule 12/26/19 25 Active Adderall XR 30 MG 24 hour capsuleIndications :Attention deficit hyperactivity disorder (ADHD), unspecified ADHD type Take 1 Capsule by mouth every morning. Should be given by noon. Swallow whole or open,sprinkle contents on food 30 Capsule 11/25/19 25 Active Adderall XR 30 MG 24 hour capsuleIndications :Attention deficit hyperactivity disorder (ADHD), unspecified ADHD type Take 1 Capsule by mouth every morning. Should be given by noon. Swallow whole or open,sprinkle contents on food 30 Capsule 10/27/19 25 Active Active Problems Problem Noted Date Diagnosed Date Family planning advice 11/01/2022 Assessment & Plan (06/11/2023 9:09 AM CDT): You are interested in pursuing a family soon but not currently trying to conceive. You are on several of your medications which would need to be stopped and/or closely monitored during . This may be best done by psychiatrist and/or maternal medicine (MFM) specialist as I would consider you a high risk . You have been in contact with M by report. Assessment & Plan (11/01/2022 10:39 AM BUSINESS SUPPORT ASSISTANT): You are interested in pursuing a family soon and maybe starting process of IVF. We discussed today my concerns with several of your medications which would need to be stopped and/or closely monitored during . This may be best done by psychiatrist and/or maternal medicine (MFM) specialist as I would consider you a high risk . - start vitamin prior to conception - follow-up in clinic or with specialist prior to conception to discuss medications Osteopenia 04/17/2022 Lactose intolerance 04/06/2022 Gluten intolerance 04/06/2022 Assessment & Plan (11/01/2022 10:39 AM BUSINESS SUPPORT ASSISTANT): Requested labs ordered today Vapes nicotine containing substance 01/07/2022 Assessment & Plan (06/11/2023 9:16 AM CDT): Advised cessation, especially prior to Assessment & Plan (01/07/2022 1:54 PM CDT): Advised cessation. Anxiety 08/07/2021 Overview (07/21/2024): Previously on lamotrigine Assessment & Plan (07/21/2024 3:03 PM CDT): You feel anxiety is mostly managed. You have had several panic attacks after dog attack. Using lorazepam for acute panic attack. Assessment & Plan (12/23/2023 3:28 PM CDT): You believe you are NOT currently taking lamotrigine. Checking level today. Up and down days but feel you are doing ok. Assessment & Plan (06/11/2023 9:22 AM CDT): You feel your daily anxiety is well managed but you have had several episodes of panic attack which are hard for you to break. This is occurred about 4-5 times in the last 3 months. I reviewed your medications through an interaction wrap checker. I would be cautious about buspirone due to potential interactions. I feel comfortable giving you a few tabs of lorazepam to have on hand for acute anxiety. This medication cannot be mixed with alcohol or with the narcotic. I also do not want you to use recreational marijuana. 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 Assessment & Plan (11/01/2022 10:42 AM BUSINESS SUPPORT ASSISTANT): I have some concern with lamotrigine use during but does not appear to be contraindicated. Levels checked today Assessment & Plan (01/07/2022 1:52 PM CDT): Doing better but does have some difficulty in certain social situations. It seems reasonable that her dog would provide her additional comfort. Asked her future landlord to take this in consideration. Letter may allow her to have dog in common areas. 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 Previously on lamotrigine Assessment & Plan (07/21/2024 3:03 PM CDT): Continues bupropion XL Previously established with therapist Assessment & Plan (12/23/2023 3:32 PM CDT): Not currently on lamotrigine. Continues bupropion XL Previously established with therapist Assessment & Plan (06/11/2023 9:11 AM CDT): You feel things are well managed with current regimen and working with a therapist weekly. This is a difficult transition period with loss of mother, job changes and your partner working out of state. Plan to continue current regimen but as mentioned earlier, several medications would need to be stopped or closely monitored during when that milestone occurs. Assessment & Plan (01/07/2022 1:51 PM CDT): Feels doing quite well currently. Assessment & Plan (08/10/2021 3:49 PM CDT): You are doing well on bupropion XL 300 mg daily and lamotrigine 200 mg daily. Lamotrigine level was therapeutic when checked six months ago. Continue regimen established by your previous mental health provider. Alopecia areata, unspecified 11/08/2016 Hypothyroidism, unspecified type 05/03/2016 Assessment & Plan (12/23/2023 3:29 PM CDT): Frustrated with recent weight gain. Checking thyroid function today. Will be in touch if dose change of levothyroxine is advised Assessment & Plan (06/11/2023 9:12 AM CDT): Thyroid function within the last year at goal. Plan to continue levothyroxine at current dosing. Thyroid function would need to be monitored during . Assessment & Plan (08/10/2021 3:43 PM CDT): Frustrated by continued excessive hair loss. Recheck thyroid function today is normal. Your thyroid function is not an issue. IBS (irritable bowel syndrome) 02/22/2016 Urticaria, chronic 01/31/2016 Overview (08/07/2021): Impression - [id number]: willl tx with medrol dose dash to see results. Is to have an OV soon and can discuss results then. Acne vulgaris 01/19/2016 Overview (10/29/2022): Impression - 16Oct2017: -currently taking minocycline and using finacea prn - Refill finacea foam; Impression - 05Nov2016: off minocin to see if this is causing her hair loss; Impression - [id number]: derm to see; Impression - [id number]: will tx with topical benzyl peroxie with clind and oral minocin. FU in one month Allergic conjunctivitis 01/19/2016 Overview (08/07/2021): Impression - [id number]: pataday ordered Migraine 01/19/2016 Overview (08/10/2021): Replax caused lightheadedness Tried sumatriptan in past Assessment & Plan (07/21/2024 3:03 PM CDT): Stable with topiramate daily and as needed Fioricet. Assessment & Plan (12/23/2023 3:30 PM CDT): Stable with topiramate daily and as needed Fioricet. Assessment & Plan (06/11/2023 9:17 AM CDT): Stable with topiramate daily and as needed Fioricet. Both of these medications would need to be stopped during . Ideally a preventive medication other than topiramate would be used after due to interaction with lamotrigine. Assessment & Plan (11/01/2022 10:40 AM BUSINESS SUPPORT ASSISTANT): Stable with topiramate daily and as needed Fioricet. Both of these medications would need to be stopped during Assessment & Plan (04/06/2022 8:35 AM CDT): Well controlled with topiramate daily and as needed Firoicet for of headache. Chronic constipation 12/26/2015 Overview (08/07/2021): Impression - 26Dec2015: Would like to involve GI - may benefit from linzess-type medication. For now, may continue colace BID. Concern regarding impact of AN on this issue. Insomnia 12/26/2015 Assessment & Plan (12/23/2023 3:29 PM CDT): Managed with trazodone for sleep Assessment & Plan (11/01/2022 10:41 AM BUSINESS SUPPORT ASSISTANT): Managed with trazodone for sleep Ideally, this medication would not be used in but is not contraindicated WPW (Fgoyu-Nzgquccqa-Ouhjc syndrome) 04/14/2015 ADHD 09/27/2014 Overview (10/29/2022): Previously managed by mental health provider Assessment & Plan (07/21/2024 3:03 PM CDT): You are doing well on current regimen of generic Adderall XR 30 mg in morning and short acting 20 mg later in day. You have a clear improvement on days you use it. Scripts renewed. - random UDS and stimulant agreement up to date - scripts updated for three months, may call in for an additional three months. Follow-up at least every six months for medication check. Next check can be a physical Assessment & Plan (12/23/2023 3:28 PM CDT): You are doing well on current regimen [...] least every six months for medication check. Assessment & Plan (06/11/2023 9:15 AM CDT): You are doing fair on current regimen of generic Adderall XR 30 mg in morning and short acting 20 mg later in day. Scripts renewed. - random UDS today (aware of THC use but our plan moving forward to abstain altogether). - scripts updated for three months, may call in for an additional three months. Follow-up at least every six months for medication check. Assessment & Plan (11/01/2022 10:44 AM BUSINESS SUPPORT ASSISTANT): You are doing fair on current regimen of generic Adderall XR 30 mg in morning and short acting 20 mg later in day. You are interested in higher dosing of short acting. I would like to stay at same. Scripts renewed. Prescription medication web site reviewed and medication agreement updated - random UDS today (aware of THC use). - scripts updated for three months, may call in for an additional three months. Follow-up at least every six months for medication check. - stimulants should be STOPPED during Assessment & Plan (04/06/2022 8:37 AM CDT): Current regimen of generic Adderall XR 30 mg in morning and short acting 20 mg later in day quite effective. Dosing continued. Reviewed prescription medication web site. Medication agreement updated. - random UDS today (awaire of cannabis use) - scripts updated for three months, may call in for an additional three months of scripts - follow-up every six months for reassment Assessment & Plan (01/07/2022 1:52 PM CDT): Doing better after regimen change. Script updated after appointment. Assessment & Plan (08/10/2021 3:46 PM CDT): Doing well with stimulant therapy but feels medication is wearing off by the time she is sitting down to do most of her studying. Self described night owl. I advise no change in dose of long acting Adderall but comfortable with a slight increase in short acting. Reviewed PDMP web site. Resolved Problems Problem Noted Date Diagnosed Date Resolved Date Major depression 07/21/2024 07/21/2024 Strain of lumbar region 07/21/2024 10/0 05/2024 Neck injury 07/21/2024 07/21/2024 Nasal obstruction 07/21/2024 07/21/2024 Multiple bruises 07/21/2024 07/21/2024 Gastroenteritis 07/21/2024 07/21/2024 Bipolar disorder 03/11/2024 07/21/2024 Preop examination 12/31/2023 07/21/2024 Assessment & Plan (12/31/2023 9:38 AM CDT): Images from the original note were not [...] managed Labs * Data supports elimination of r outine laboratory testing in favor of focused, i ndicated testing based on medical co-morbidities. A 2009 study randomized 1061 patients undergoing ambulatory, non-cataract surgery to routine or to indicated testing. Perioperative adverse events were similar (Anesthesia & Analgesia 2009;108:467- 75; Anesthesiol. Clin. 2016 Mar;34(1):43-58). EKG * The ACC/AHA recommends against obtaining routine EKGs in patients undergoing low risk surgeries, a class IIa recommendation (JACC. 2014;64(21);e1-76). Session ID: [id number] Endnotes and bibliography available upon request: [email or web address] Weight gain 12/23/2023 07/21/2024 Assessment & Plan (12/23/2023 3:30 PM CDT): Uncertain etiology, 20 lbs from last visit. Several possible culprit medications. Checking thyroid function and additional labs today. Menses regular. Not recently on steroids or hormones. Recurrent streptococcal pharyngitis 12/23/2023 07/21/2024 Assessment & Plan (12/23/2023 3:31 PM CDT): Upcoming consultation with ENT. Strongly desiring tonsillectomy. Periumbilical abdominal pain 01/01/2022 06/11/2023 Assessment & Plan (04/06/2022 8:34 AM CDT): Resolved after eliminating dairy and gluten from diet. Assessment & Plan (01/07/2022 1:50 PM CDT): One month trial of pantoprazole. Reassess in one month Throat clearing 01/01/2022 07/21/2024 Assessment & Plan (01/07/2022 1:50 PM CDT): This maybe from post nasal drip or reflux. Trial of PPI. Hypothalamic hypogonadism 12/26/2021 Assessment & Plan (06/11/2023 9:09 AM CDT): This is being managed by gynecology. You are now having more regular menstruation after going over a year without menses. Secondary amenorrhea 12/26/2021 024 Hypoestrogenism 12/26/2021 06/11/2023 Anorexia nervosa, unspecified 12/26/2015 06/11/2023 Orthostasis 10/08/2014 07/21/2024 Alcohol abuse, in remission 09/27/2014 06/11/2023 Encounters Date Type Department Care Team Description 10/28/2024 Telephone [facility] [address] [phone] Elissa Waggoner, DO Prior Authorization 10/26/2024 Refill [facility] [address] [phone] Elissa Waggoner, DO Refill Request 09/18/2024 Refill [facility] [address] [phone] Elissa Waggoner, Refill Request from Last 3 Months Immunizations Name Administration Dates Next Due DTaP <7 years 09/23/2002, 9,04/01/1998,1997,1997 Hepatitis A, Ped/Adolescent 2 dose 06/01/2008, Hepatitis B NOS 07/01/1998,01/21/1998,1997 Hib (Nos) 04/06/1999, 8,01/21/1998,1997 Human Papilloma Virus 9 03/15/2020,07/01/2017 Human Papilloma Virus Quadrivalent 09/29/2014, IPV 09/23/2002, 8,01/21/1998,1997 Influenza (3+ Yrs) NPF-Multi Dose Vial (Flu Clinic) 09/29/2014 Influenza Quad Preservative Free 014,08/02/2011,10/11/2010,2008,07/29/2008,08/01/2007,11/06/2006 Influenza Trivalent Live Int ranasal (Flumist) 08/02/2011,10/11/2010,05/20/2009,2007,08/01/2007,11/06/2006 Influenza Trivalent With Preservative 11/09/2002 ,09/23/2002 Influenza Unspecified Formulation 09/29/2014,,09/23/2002 MMR 09/23/2002,10/03/1999 Pneumococcal Conjugate, (Prevnar)7-valent 08/20/2000 Polio Unspecified Formulation 04/01/1998, 998,1997 Tdap (7 years and older) 03/15/2020,03/23/2014 Varicella (Varivax) 06/01/2008,10/21/1998 Surgical History Surgery Date Site/Laterality Comments FOOT SURGERY Description: shattered rigth calaneous WISDOM TOOTH EXTRACTION SURGERY/PROCEDURE Problem: History of Electronic Analysis Of Implantable Loop Recorder TONSILLECTOMY Medical History Medical History Date Comments COVID-19 virus infection 04/2020 Alcohol abuse, in remission 09/27/2014 Anorexia nervosa, unspecified 12/26/2015 Secondary amenorrhea 12/26/2021 Family History Medical History Relation Comments Asthma [...] on file Legal 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 Gender Identity Not on file Sexual Orientation [...] Sign Reading Time Taken Comments Blood Pressure 104/60 07/21/2024 2:38 PM CDT Pulse 90 07/21/2024 2:38 PM CDT Temperature 36.8 C (98.2 F) 07/21/2024 2:38 PM CDT Respiratory Rate 16 07/09/2020 7:22 AM CDT Oxygen Saturation 100% 07/09/2020 7:22 AM CDT Inhaled Oxygen Concentration - - Weight 60.3 kg (133 lb) 07/21/2024 2:38 PM CDT Height 165.1 cm (5' 5) 07/21/2024 2:38 PM CDT Body Mass Index 22.13 07/21/2024 2:38 PM CDT Plan of Treatment Health Maintenance Due Date Last Done Comments Cervical Cancer Screening 1997 Last pap w/ HPV Testing 1997 Last pap w/o HPV Testing 1997 COVID-19 Vaccine ( season) 2024 Influenza Vaccine Seasonal (Standing Order) (#1) 2024 09/29/2014, 09/29/2014, 09/29/2014, Additional history exists TETANUS [...] Completed 03/15, 03/23/2014, 09/23/2002, Additional history exists Insurance [employer] [facility] Member Subscriber Plan / Payer (Ef fective 2020-Present) Name:Helga Burden Relation to Subscriber:Child Name:RAJ BURDEN Date of :1968 (Home) Address: [address] [place] [address] [address] [place] [address] Payer ID:[id number] (NAIC) Type:[employer] Address: [address] [place] [address] [facility] Care Teams Camera Engineer Relationship Specialty Start Date End Date Elissa Waggoner DO [address] [address] PCP - General Internal Medicine 06/18/24
--- OUTSIDE RECORDS SUMMARY | 2024-10-29 04:37 | XMS_ITS | Referral Summary ---
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
--- OUTSIDE RECORDS SUMMARY | 2024-10-29 04:37 | XMS_ITS | Encounter Summary ---
Author Organization [facility] Address [address] [address] Phone Care Team Providers Care International Sourcing Manager Name Role Phone Elissa Waggoner DO Primary Care Provider [phone] Elissa Waggoner DO Primary Care Provider + [phone] Reason for Visit * Reason Comments Refill Request Encounter Details Date Type Department Care Team (Late st Contact Info) Description 05/14/2023 Refill [facility] [address] [place] [phone] Elissa Waggoner, DO [address] [place] [address] Refill Request Social History Tobacco Use Types [...] on file 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 Should be given by noon. Swallow whole or open,sprinkle contents on food 30 Capsule 05/16/2023 3 amphetamine-dextroa mphetamine (Adderall) 20 MG tabletIndications:A ttention deficit hyperactivity disorder (ADHD), combined type Take 1 Tablet by mouth every afternoon. To avoid insomnia, last daily dose should be taken no less than 6 hours before bed. 30 Tablet 05/16/2023 3 documented in this encounter Miscellaneous Notes * Telephone Encounter - Tosha Adkins RN - 05/16/2023 12:[address] Waggoner, She is completely out and requesting refill today please medication request:Adderall 20 mg and 30 mg Er Dx:ADD Per [place] Last Date Dispensed:04/11/23 for both Quantity:30 (30 mg er) 30 (20 mg) Days Supply:30 30 Refills Remainin / 0 Last Med Check:10/29/22 med check called [...] documented as of this encounter Care Teams International Sourcing Manager Relationship Specialty Start Date End Date Elissa Waggoner DO [address] [address] PCP - General Internal Medicine 10/29/22 05/15/23 Elissa Waggoner DO [address] [address] PCP - General Internal Medicine 06/18/24 documented as of this encounter
--- OUTSIDE RECORDS SUMMARY | 2024-10-29 04:37 | XMS_ITS | Encounter Summary ---
Author Organization [facility] Address [address] [address] Phone Care Team Providers Care Annual Campaign Manager Name Role Phone Elissa Waggoner DO Primary Care Provider [phone] Reason for Visit * Reason Onset Date Comments Prior Authorization 10/28/2024 Encounter Details Date Type Department Care Team (Late st Contact Info) Description 10/28/2024 Telephone [facility] [address] [place] [phone] Elissa Waggoner DO [address] [place] [address] Prior Authorization Social History Tobacco Use Types [...] on file 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 RIAL ASSISTANT documented in this encounter Plan of Treatment Not on file documented as of this encounter Visit Diagnoses Not on filedocumented in this encounter Care Teams Annual Campaign Manager Relationship Specialty Start Date End Date Elissa Waggoner DO [address] [address] PCP - General Internal Medicine 06/18/24 documented as of this encounter
--- OUTSIDE RECORDS SUMMARY | 2024-10-29 04:37 | XMS_ITS | Encounter Summary ---
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 Should be given by noon. Swallow whole or open,sprinkle contents on food 30 Capsule 10/27/2024 Adderall XR 30 MG 24 hour capsuleIndications: Attention deficit hyperactivity disorder (ADHD), unspecified ADHD type Take 1 Capsule by mouth every morning. Should be given by noon. Swallow whole or open,sprinkle contents on food 30 Capsule 11/25/2024 Adderall XR 30 MG 24 hour capsuleIndications: Attention deficit hyperactivity disorder (ADHD), unspecified ADHD type Take 1 Capsule by mouth every morning. Should be given by noon. Swallow whole or open,sprinkle contents on food 30 Capsule 12/25/2024 documented in this encounter Miscellaneous Notes * Telephone Encounter - Lorelei Cage RN - 10/26/2024 1:30 PM CST Requested Prescriptions Pending Prescriptions Disp Refills Adderall XR 30 MG 24 hour capsule 30 Capsule 0 Sig: Take 1 Capsule by mouth every morning. Should be given by noon. Swallow whole or open,sprinklecontents on food Adderall XR 30 MG 24 hour capsule 30 Capsule 0 Sig: Take 1 Capsule by mouth every morning. Should be given by noon. Swallow whole or open,sprinklecontents on food Adderall XR 30 MG 24 hour capsule 30 Capsule 0 Sig: Take 1 Capsule by mouth every morning. Should be given by noon. Swallow whole or open,sprinklecontents on food Pt contacted to verify if they are still taking this medication: No Date last seen for diagnosis: 07/21/24 for Med check Filled by: Elissa Waggoner Last labs: 12/23/23 UDS PDMP reviewed: Yes - last filled 09/21/24 for 30 capsules Why this cannot be refilled per protocol: Controlled substance Routing to provider for approval/denial. WARE ENGINEER WEB APPLICATIONS documented in this encounter Plan of Treatment Not on file documented as of this encounter Visit Diagnoses Diagnosis Attention deficit hyperactivity disorder (ADHD), unspecified ADHD type documented in this encounter Discontinued Medications Medication Sig Discontinue Reason Start Date End Da te Adderall XR 30 MG 24 hour capsuleIndications:Atten tion deficit hyperactivity disorder (ADHD), combined type Take 1 Capsule by mouth every morning by noon. Swallow whole or open and sprinkle contents on food Duplicate Medication 06/16/2024 10/26/2024 amphetamine-dextroamphet amine (Adderall) 20 MG tabletIndications:Attent ion deficit hyperactivity disorder (ADHD), combined type Take 1 Tablet by mouth every morning. To avoid insomnia, last daily dose should be taken no less than 6 hours before bed. Duplicate Medication 06/16/2024 10/26/2024 Adderall XR 30 MG 24 hour capsuleIndications:Atten tion deficit hyperactivity disorder (ADHD), unspecified ADHD type Take 1 Capsule by mouth every morning. Should be given by noon. Swallow whole or open,sprinkle contents on food Reorder 07/21/2024 10/26/2024 Adderall XR 30 MG 24 hour capsuleIndications:Atten tion deficit hyperactivity disorder (ADHD), unspecified ADHD type Take 1 Capsule by mouth every morning. Should be given by noon. Swallow whole or open,sprinkle contents on food Reorder 08/18/2024 10/26/2024 Adderall XR 30 MG 24 hour capsuleIndications:Atten tion deficit hyperactivity disorder (ADHD), unspecified ADHD type Take 1 Capsule by mouth every morning. Should be given by noon. Swallow whole or open,sprinkle contents on food Reorder 09/15/2024 10/26/2024 documented as of this encounter Care Teams Passenger Vessel Chef Relationship Specialty Start Date End Date Elissa Waggoner DO [address] [address] PCP - General Internal Medicine 06/18/24 documented as of this encounter
--- OUTSIDE RECORDS SUMMARY | 2024-10-29 04:37 | XMS_ITS | Continuity of Care Document ---
Author Name NwHIN User [id number] llowed Address Unknown Organization Unknown Address Unknown Alerts, Allergies and Adverse Reactions FILTER APPLIED:All Known Active Allergies Substance Reaction Onset Status (LATEX) rash (Moderate) Active (AMOXICILLIN) Unknown Active (DIAGNOSTIC X-RAY MATERIALS) Unknown Active (GLUTEN MEAL) ABDOMINAL PA (Mild) Active (MILK PROTEIN) ABDOMINAL PA (Mild) Active Procedures FILTER APPLIED:Only known Procedures with Onset Date within the last 5 years Procedure Date Procedure Provider Additiona l Information Status METABOLIC PANEL TOTAL CA (84563) Completed CT ABDOMEN W/DYE (83194) Completed ROUTINE VENIPUNCTURE (61138) Completed COMPLETE CBC W/AUTO DIFF WBC (87286) Completed COMPLETE CBC W/AUTO DIFF WBC (12097) Completed EMERGENCY DEPT VISIT LOW MDM (96014) Completed THER/PROPH/DIAG INJ IV PUSH (03211) Completed METABOLIC PANEL TOTAL CA (21575) Completed ROUTINE VENIPUNCTURE (01889) Completed THER/PROPH/DIAG INJ IV PUSH (81640) Completed TX/PRO/DX INJ NEW DRUG ADDON (44130) Completed EMERGENCY DEPT VISIT LOW MDM (85158) Completed EMERGENCY DEPT VISIT MOD MDM (10750) Completed COMPLETE CBC W/AUTO DIFF WBC (98064) Completed ASSAY SPEC XCP UR BREATH IA (34805) Completed ROUTINE VENIPUNCTURE (33440) Completed METABOLIC PANEL TOTAL CA (56288) Completed MEASURE BLOOD OXYGEN LEVEL (54810) Completed EMERGENCY DEPT VISIT LOW MDM (74439) Completed TX/PRO/DX INJ NEW DRUG ADDON (78665) Completed THER/PROPH/DIAG INJ IV PUSH (29097) Completed NASAL/SINUS NDSC SURG W/SERGIO BULLOSA RESECTION (89287) Completed URINE TEST (11495) Completed ANESTH PROCEDURE ON MOUTH (83192) Completed SUBMUCOUS RESCJ INFERIOR TURBINATE PRTL/COMPL (70590) Completed SEPTOPLASTY/SUBMUCOUS RESECJ W/WO CARTILAGE GRF (89364) Completed TONSILLECTOMY AND ADENOIDECTOMY AGE 12/> (11270) Completed CT MAXILLOFACIAL W/O DYE (34530) Completed TX/PRO/DX INJ NEW DRUG ADDON (78818) Completed THER/PROPH/DIAG INJ IV PUSH (99660) Completed STREP A DNA AMP PROBE (98767) Completed EMERGENCY DEPT VISIT LOW MDM (07234) Completed RESP VIRUS 3-5 TARGETS (97186) Completed Encounters FILTER APPLIED:Only known Encounters with Admission Date within the last 5 years Encounter Location Admission Discharge Billing Code Associate Professor Of Anthropology Jannet toro Emergency [facility] EM[facility]M TRINO HUBBARD Outpatient [facility] Outpatient [facility] Outpatient [facility] Emergency Selam Ferrell Outpatient Maria D [facility] Outpatient [facility] Emergency [place] [facility] Emergency Rolando Torres Emergency Lucia holloway Emergency Michael Brandt Outpatient [facility] [place]
--- OUTSIDE RECORDS SUMMARY | 2024-10-29 04:38 | XMS_ITS | Clinical Summary ---
[facility] Address [address] [place] [address] Care Team Providers Care Plant Ecologist Name Role Phone Needs Pcp, Assignment Primary Care Provider [phone] Source Comments You are receiving this document as you are listed as the primary care provider,follow-up provider, or the patient has been referred to you for consultation.This is in compliance with the Medicare and[facility] Cent[facility]aid EHR Incentive Program,which states Providers who transition their patient to another setting of careor provider of care or refers their patient to another provider of care shouldprovide summary care record for each transition of care or referral. [employer] Allergies Active Allergy Reactions Criticality Noted Date Comments Amoxicillin 09/15/2019 Latex 09/15/2019 Review Contrast Media 1997 PN: LW CM1: CONTRAST- nka Reaction : Review Food Intolerance 05/09/2010 PN: LW FI1: nka Medications Medication Sig Dispensed Refills Start Date End Date Status topiramate (TOPAMAX) 50 MG tabletIndications:FLAVIA ANTHONY SatJul 18, 2015 2:02 PM Received from: External Pharmacy Indications: PN: FALVIA FLORES SatJul 18, 2015 2:02 PM Received [...] Tablet (50 mcg) by mouth daily. Active Ssjjmaexbq-QIPH-Rmidz ine 50-300-40 MG CAPS TAKE ONE CAPSULE BY MOUTH FOUR TIMES A DAY NEEDED FOR HEADACHES/MIGRAIN ES 08/13/2020 Active buPROPion (WELLBUTRIN XL) 300 MG 24 hour release tablet Take 1 Tablet (300 mg) by mouth daily. 05/24/2020 Active lamoTRIgine (LAMICTAL) 200 MG tablet 08/13/2020 Active amphetamine-dextroamp hetamine (ADDERALL XR) 30 MG 24 hour release capsule Take 1 Capsule (30 mg) by mouth. 09/14/2020 Active diclofenac (VOLTAREN) 75 [...] if symptoms persist 2 Tablet 06/26/2023 Active Additional Information Patient not taking.Reported on 06/11/2024 Active Problems Problem Noted Date Diagnosed Date Bipolar disorder 03/11/2024 Generalized anxiety disorder 03/11/2024 Osteopenia 04/17/2022 Lactose intolerance 04/06/2022 Gluten intolerance 04/06/2022 Overview (03/11/2024): Last Assessment & Plan: Requested labs ordered today Body mass index (BMI) 19.9 or less, adult 2021 Hypothalamic hypogonadism 12/26/2021 Hypoestrogenism 12/26/2021 Secondary amenorrhea 12/26/2021 Anxiety 08/07/2021 Overview (03/11/2024): Last Assessment & Plan: You believe you are NOT currently taking lamotrigine. Checking level today. Up and down days but feel you are doing ok. Alopecia areata, unspecified 11/08/2016 IBS (irritable bowel syndrome) 02/22/2016 Allergic conjunctivitis 01/19/2016 Overview (03/11/2024): Impression - [id number]: pataday ordered Migraine 01/19/2016 Overview (03/11/2024): Replax caused lightheadedness Tried sumatriptan in past Last Assessment & Plan: Stable with topiramate daily and as needed Fioricet. Chronic constipation 12/26/2015 Overview (03/11/2024): Impression - 26Dec2015: Would like to involve GI - may benefit from linzess-type medication. For now, may continue colace BID. Concern regarding impact of AN on this issue. Loss of weight 10/08/2014 Orthostasis 10/08/2014 Nonspecific abnormal electrocardiogram (ECG) (EK G) 10/08/2014 ADHD (attention deficit hyperactivity disorder) 09/27/2014 Marijuana abuse in remission 09/27/2014 Alcohol abuse, in remission 09/27/2014 H/O foot surgery 09/27/2014 Panic disorder without agoraphobia 09/27/2014 Eating disorder 09/27/2014 Overview (06/05/2017): Eating disorder, unspecified Major depressive disorder, recurrent episode Overview (06/05/2017): Major depressive disorder, recurrent episode, unspecified (HRC) Self-injurious behavior 09/27/2014 School avoidance 09/27/2014 Immunizations Name Administration Dates Next Due 4vHPV (Gardasil) 09/29/2014,03/23/2014 9vHPV (Gardasil 9) 03/15/2020,07/01/2017 DTaP 09/23/2002, 9,04/01/1998,1997,1997 Flu Vac (3+ yrs) 09/29/2014,11/09/2002, 2 HepA Ped/Adol (1-18 yrs) 06/01/2008,08/01/2007 HepB, Unspecified Formulation 07/01/1998, 998,1997 Hib, Unspecified Formulation 04/06/1999, 04/01/1998,01/21/1998,1997 IPV (Polio) 09/23/2002, 8,01/21/1998,1997 Influenza IIV4 (Quadrivalent ) 0.5mL (49352) 09/29/2014,08/02/2011,10/11/2010,2008,07/29/2008,08/01/2007,11/06/2006 Influenza LAIV3 2-49 years (Flumist) ,10/11/2010,05/20/2009,2007,08/01/2007,11/06/2006 Influenza, Unspecified Formulation 09/29/2014,,09/23/2002 MMR 09/23/2002,10/03/1999 Pneumococcal [...] Sign Reading Time Taken Comments Blood Pressure 127/82 06/11/2024 10:55 AM CDT Pulse 80 06/11/2024 10:55 AM CDT Temperature 36.6 C (97.8 F) 03/11/2024 10:29 AM CDT Respiratory Rate 16 03/11/2024 10:2 9 AM CDT Oxygen Saturation 100% 03/11/2024 10: 29 AM CDT Inhaled Oxygen Concentration - - Weight 62.1 kg (136 lb 12.8 oz) 024 10:55 AM CDT Height 165.1 cm (5' 5) 06/26/2023 8:49 AM CDT Body Mass Index 22.76 06/26/2023 8:49 AM CDT Plan of Treatment Health Maintenance Due Date Last Done Comments Hep C Screening (Preventive Services) 1997 Pneumococcal (1 - PCV) 2003 08/20/2000 HIV Screening (Preventive Services) 2013 Adult Preventive Visit 07/01/2019 07/01/2017 COVID-19 Vaccine ( season) 2024 Influenza (#1) 2024 09/29/2014, 09/13, 09/29/2014, Additional history exists Cervical [...] (06/03/2023 8:44 AM CDT) Case Report Pap Case: [id number] Authorizing Provider: Mariella De Anda APRN, Collected: 06/03/2023 0844 CORE SHAPER Ordering Location: [facility] Received: 06/03/2023 0854 Obstetrics/Gynec ology First Screen: Alexia Jolly Specimen: Pap Test, Routine, Cervix/Endocervix 06/12/2023 1:12 PM CDT [facility] Pap Specimen Adequacy Satisfactory for evaluation, endocervical/salmon sformation zone component present. 06/12/2023 1:12 PM CDT [facility] Pap Interpretation (NILM) Negative for intraepithelial lesion or malignancy. 06/12/2023 1:12 PM CDT [facility] Pap Other Findings Fungal organisms morphologically consistent with Carolyne spp. 06/12/2023 1:12 PM CDT [facility] Pap Disclaimer The Pap test is a screening test to aid in the detection of cervical and vaginal cancers and their precursor lesions. It is not a diagnostic procedure and should not be used as the sole means of detecting malignancy. Both false-positive and false-negative results may occur. 06/12/2023 1:12 PM CDT [facility] Gross Description The specimen is received in SurePath fixative and properly labeled. 1 Pap-stained SurePath slide is prepared. 06/12/2023 1:12 PM CDT [facility] Embedded Images 1:12 PM CDT [facility] Other Specimen Type ENTIRE ENDOCERVIX / Unknown 06/03/2023 8:44 AM CDT 06/03/2023 8:54 AM CDT Comment:LMP: No LMP recorded . (Menstrual status: Irregular). Mariella De Anda APRN, CNP LAB PATHOLOG Y Performing Organization Address City/State/[facility] Co de Phone Number [facility] [address] * Chlamydia & GC (14 Years and Older): Vagina (06/03/2023 8:44 AM CDT) Chlamydia Trachomatis STD Not Detected Not Detected 06/03/2023 7:30 PM CDT [facility] N. gonorrhoeae STD Not Detected Not Detected 06/03/2023 7:30 PM CDT [facility] Swab STD SPECIMEN FROM VAGINA / Unknown Non-blood Collection / Unknown 06/03/2023 8:44 AM CDT 06/03/2023 8:51 AM CDT [place] [facility] - 06/03/2023 7:30 PM CDT Test performed by Radio Division Officer Mediated Amplification (TMA). Mariella De Anda APRN, CNP LAB_1 [facility] [address] [place] [address], [facility] [phone] from Last 3 Months or Most Recently Relevant to Health Maintenance Advance Directives * Full Code (Latest Code Status on File) Date Activated Date Inactivated Comments 10/19/2014 9:37 PM 10/26/2014 4:08 PM * Full Code Date Activated Date Inactivated Comments 10/08/2014 1:32 PM 10/19/2014 9:35 PM Care Teams Plant Ecologist Relationship Specialty Start Date End [place] [address] PCP - General 05/28/24
[2024-10-29 04:40] VITALS: BP 110/83; PULSE 125; RESP 18; TEMP 37.8; O2SAT 97; BMI 20.8
[2024-10-29 05:12] VITALS: TEMP 37.8
[2024-10-29] MEDS: KETOROLAC 10 MG TABLET PO (05:12)
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
[2024-10-29] MEDS: ONDANSETRON ODT 4 MG TAB PO (05:13)
[2024-10-29] MEDS: FAMOTIDINE 20 MG TABLET PO (05:13)
[2024-10-29 05:19] LABS: PCR FLU A Negative PCR FLU A (Negative); PCR FLU B Negative PCR FLU B (Negative); PCR RSV Negative PCR RSV (Negative); SARS PCR* Negative SARS-CoV-2 (Negative)
--- OUTSIDE RECORDS SUMMARY | 2024-10-29 05:31 | XMS_ITS | Encounter Summary ---
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 PIECE STYLIST documented in this encounter Plan of Treatment Not on file documented as of this encounter Visit Diagnoses Not on filedocumented in this encounter Care Teams Compound Specialist Relationship Specialty Start Date End Date Elissa Waggoner DO [address] [address] PCP - General Internal Medicine 06/18/24 documented as of this encounter
--- OUTSIDE RECORDS SUMMARY | 2024-10-29 05:31 | XMS_ITS | Clinical Summary ---
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
--- OUTSIDE RECORDS SUMMARY | 2024-10-29 05:31 | XMS_ITS | Encounter Summary ---
Author Organization [facility] Address [address] [address] Phone Care Team Providers Care Remote Inpatient Coder Name Role Phone Elissa Waggoner DO Primary Care Provider [phone] Elissa Waggoner DO Primary Care Provider [phone] Reason for Visit * Reason Comments Refill Request Encounter Details Date Type Department Care Team (Late st Contact Info) Description 05/14/2023 Refill [facility] [address] [place] [phone] Elissa Waggoner, DO [address] [place] [address] Refill Request Social History Tobacco Use Types [...] on file 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 DOA testin10/30/22 documented in this [...] documented as of this encounter Care Teams Remote Inpatient Coder Relationship Specialty Start Date End Date Elissa Waggoner DO [address] [address] PCP - General Internal Medicine 10/29/22 05/15/23 Elissa Waggoner DO [address] [address] PCP - General Internal Medicine 06/18/24 documented as of this encounter
--- OUTSIDE RECORDS SUMMARY | 2024-10-29 05:31 | XMS_ITS | Clinical Summary ---
Author Organization [facility] Address [address] [address] Phone Care Team Providers Care Motion Picture Director Name Role Phone Edilson Elissa M DO Primary Care Provider [phone] Allergies Active Allergy Reactions Criticality Noted Date [...] report. Assessment & Plan (11/01/2022 10:39 AM DIRECTOR EMBALMER): You are interested in pursuing a family [...] 04/06/2022 Assessment & Plan (11/01/2022 10:39 AM DIRECTOR EMBALMER): Requested labs ordered today Vapes nicotine containing [...] I reviewed your medications through an interaction time checker. I would be cautious about buspirone due to potential interactions. I feel comfortable giving you a few tabs of lorazepam to have on hand for acute anxiety. This medication cannot be mixed with alcohol or with the narcotic. I also do not want you to use recreational marijuana. 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 Assessment & Plan (11/01/2022 10:42 AM DIRECTOR EMBALMER): I have some concern with lamotrigine use [...] Urticaria, chronic 01/31/2016 Overview (08/07/2021): Impression - [id number]: willl tx with medrol dose dash to see results. Is to have an OV soon and can discuss results then. Acne vulgaris 01/19/2016 Overview (10/29/2022): Impression - [id number]: -currently taking minocycline and using finacea prn - Refill finacea foam; Impression - 05Nov2016: off minocin to see if this is causing her hair loss; Impression - [id number]: derm to see; Impression - [id number]: will tx with topical benzyl peroxie with clind and oral minocin. FU in one month Allergic conjunctivitis 01/19/2016 Overview (08/07/2021): Impression - [id number]: pataday ordered Migraine 01/19/2016 Overview (08/10/2021): Replax [...] lamotrigine. Assessment & Plan (11/01/2022 10:40 AM DIRECTOR EMBALMER): Stable with topiramate daily and as needed [...] sleep Assessment & Plan (11/01/2022 10:41 AM DIRECTOR EMBALMER): Managed with trazodone for sleep Ideally, this medication would not be used in but is not contraindicated WPW (Pndfp-Shibfbvbz-Hnfdk syndrome) 04/14/2015 ADHD 09/27/2014 Overview (10/29/2022): Previously [...] check. Assessment & Plan (11/01/2022 10:44 AM DIRECTOR EMBALMER): You are doing fair on current regimen [...] class IIa recommendation (JACC. 2014;64(21);e1-76). Session ID: [id number] Endnotes and bibliography available upon request: [email or web address] Weight gain 12/23/2023 07/21/2024 Assessment & Plan [...] Type Department Care Team Description 10/28/2024 Telephone [facility] [address] [phone] Elissa Waggoner, DO Prior Authorization 10/26/2024 Refill [facility] [address] [phone] Elissa Waggoner, DO Refill Request 09/18/2024 Refill [facility] [address] [phone] Elissa Waggoner, Refill Request from Last 3 [...] on file Legal Sex Female 8:08 PM DIRECTOR EMBALMER Gender Identity Not on file Sexual Orientation [...] 03/15, 03/23/2014, 09/23/2002, Additional history exists Insurance [employer] [facility] Member Subscriber Plan / Payer (Ef fective 2020-Present) Name:Helga Burden Relation to Subscriber:Child Name:RAJ BURDEN Date of :1968 (Home) Address: [address] [place] [address] [address] [place] [address] Payer ID:[id number] (NAIC) Type:Partender Address: [address] [place] [address] [facility] Care Teams Motion Picture Director Relationship Specialty Start Date End Date Elissa Waggoner DO [address] [address] PCP - General Internal Medicine 06/18/24
--- OUTSIDE RECORDS SUMMARY | 2024-10-29 05:31 | XMS_ITS | Referral Summary ---
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
--- OUTSIDE RECORDS SUMMARY | 2024-10-29 05:31 | XMS_ITS | Encounter Summary ---
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 Waggoner- Requested Prescriptions Pending Prescriptions [...] controlled medication Routing to provider for approval/denial. LANE CABIN ATTENDANT documented in this encounter Plan of Treatment [...] documented as of this encounter Care Teams Cerner Analyst Relationship Specialty Start Date End Date Elissa Waggoner DO [address] [address] PCP - General Internal Medicine 06/18/24 documented as of this encounter
--- OUTSIDE RECORDS SUMMARY | 2024-10-29 05:31 | XMS_ITS | Clinical Summary ---
Author Organization [facility] Address [place], [place] [address] Care Team Providers Care Associate Editor Name Role Phone Jelena Higgins DO Primary Care Provider [phone] Allergies No known active allergies Medications dextroamphetami [...] Problems Problem Noted Date Diagnosed Date WPW (Bgypr-Fbgmjdngn-Thpfi syndrome) 08/02/2015 Abnormal ECG 10/08/2014 Alcohol abuse, [...] on file Legal Sex Female 7:06 AM SAFE AND VAULT MECHANIC Gender Identity Not on file Sexual Orientation Not on file Obstetrics History Last Filed Vital Signs Vital Sign Reading Time Taken Comments Blood Pressure 112/72 10/10/2015 3:34 PM SAFE AND VAULT MECHANIC Pulse 66 10/10/2015 3:34 PM SAFE AND VAULT MECHANIC Temperature 36.1 C (97 F) 09/06/2015 1:30 PM SAFE AND VAULT MECHANIC Respiratory Rate 16 09/07/2015 6:25 PM SAFE AND VAULT MECHANIC Oxygen Saturation 100% 09/06/2015 1:30 PM SAFE AND VAULT MECHANIC Inhaled Oxygen Concentration - - Weight 45.3 kg (99 lb 14.4 oz) 10/10/2015 3:34 P M SAFE AND VAULT MECHANIC Height 160 cm (5' 2.99) 10/10/2015 3:34 PM SAFE AND VAULT MECHANIC Body Mass Index 17.7 10/10/2015 3:34 PM SAFE AND VAULT MECHANIC Plan of Treatment Health Maintenance Due Date [...] patient's age to complete this topic Insurance [facility] [place] [id number] [place] [id number] Advance Directives * Full Code (Latest Code Status on File) Date Activated Date Inactivated Comments 09/06/2015 7:35 AM 09/06/2015 7:02 PM * Full Code Date Activated Date Inactivated Comments 07/31/2015 4:20 PM 08/01/2015 1:43 PM Care Teams Associate Editor Relationship Specialty Start Date End Date Jelena Higgins DO [address] [address] PCP - General Family Practice 03/15/23
--- OUTSIDE RECORDS SUMMARY | 2024-10-29 05:31 | XMS_ITS | Encounter Summary ---
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 NOLOGIST documented in this encounter Plan of Treatment [...] documented as of this encounter Care Teams Non Morse Intercept Technician Relationship Specialty Start Date End Date Elissa Waggoner DO [address] [address] PCP - General Internal Medicine 06/18/24 documented as of this encounter
--- OUTSIDE RECORDS SUMMARY | 2024-10-29 05:31 | XMS_ITS | Continuity of Care Document ---
[...] l Information Status METABOLIC PANEL TOTAL CA (30951) Completed CT ABDOMEN W/DYE (18950) Completed ROUTINE VENIPUNCTURE (33419) Completed COMPLETE CBC W/AUTO DIFF WBC (80112) Completed COMPLETE CBC W/AUTO DIFF WBC (23600) Completed EMERGENCY DEPT VISIT LOW MDM (70632) Completed THER/PROPH/DIAG INJ IV PUSH (03594) Completed METABOLIC PANEL TOTAL CA (28396) Completed ROUTINE VENIPUNCTURE (68787) Completed THER/PROPH/DIAG INJ IV PUSH (17834) Completed TX/PRO/DX INJ NEW DRUG ADDON (14657) Completed EMERGENCY DEPT VISIT LOW MDM (52893) Completed EMERGENCY DEPT VISIT MOD MDM (49663) Completed COMPLETE CBC W/AUTO DIFF WBC (46301) Completed ASSAY SPEC XCP UR BREATH IA (99116) Completed ROUTINE VENIPUNCTURE (49489) Completed METABOLIC PANEL TOTAL CA (31453) Completed MEASURE BLOOD OXYGEN LEVEL (86206) Completed EMERGENCY DEPT VISIT LOW MDM (82719) Completed TX/PRO/DX INJ NEW DRUG ADDON (22862) Completed THER/PROPH/DIAG INJ IV PUSH (03567) Completed NASAL/SINUS NDSC SURG W/SERGIO B[place]OSA RESECTION (07245) Completed URINE TEST (05286) Completed ANESTH PROCEDURE ON MOUTH (51588) Completed SUBMUCOUS RESCJ INFERIOR TURBINATE PRTL/COMPL (31089) Completed SEPTOPLASTY/SUBMUCOUS RESECJ W/WO CARTILAGE GRF (80269) Completed TONSILLECTOMY AND ADENOIDECTOMY AGE 12/> (16706) Completed CT MAXILLOFACIAL W/O DYE (60632) Completed TX/PRO/DX INJ NEW DRUG ADDON (04124) Completed THER/PROPH/DIAG INJ IV PUSH (60766) Completed STREP A DNA AMP PROBE (27073) Completed EMERGENCY DEPT VISIT LOW MDM (24417) Completed RESP VIRUS 3-5 TARGETS (77643) Completed Encounters FILTER APPLIED:Only known Encounters with Admission Date within the last 5 years Encounter Location Admission Discharge Billing Code Aquatic Physiotherapist Jannet toro Emergency [facility] EMERGENCY DEPARTM TRINO HUBBARD Outpatient [facility] [place] DELGADO Outpatient [facility] [place]DENER Outpatient [facility] [place] Emergency Selam Ferrell Outpatient Maria D [facility] Outpatient [facility] Emergency [place] [facility] Rolando Torres Emergency Lucia holloway Emergency Michael Brandt Outpatient [facility] [place]
[2024-10-29 05:50] VITALS: BP 112/75; PULSE 100; RESP 18; TEMP 37.5; O2SAT 97
== END 2024-10-29 05:47 | disposition home or self-care (01) ==
LOC: ED 05:29
PROVIDERS: Emergency Provider Family Medicine
DX: J11.1 Influenza due to unidentified influenza virus with other respiratory manifestations (principal); K92.0 Hematemesis
CPT/HCPCS: 87631; 99283; 99284; A9270

== ENCOUNTER 2025-02-24 12:18 | Outpatient (CLI) | payer MEDICAID, SELFPAY | END 2025-02-24 12:19 | disposition home or self-care (01) | LOC: NFLDREF 03-03 02:36 | PROVIDERS: Visit Provider Physician Assistant | DX: Z11.3 Encounter for screening for infections with a predominantly sexual mode of transmission (principal); R30.0 Dysuria | CPT/HCPCS: 87491; 87591 ==

== ENCOUNTER 2025-05-10 11:03 | Outpatient (CLI) | payer MEDICAID, SELFPAY ==
--- NOTE | 2025-05-10 11:15 | CRLHL7_ITS ---
For Patients: As a result of the Century Cures Act, medical imaging exams and procedure reports are released immediately into your electronic medical record. You may view this report before your referring provider. If you have questions, please contact your health care provider. INDICATION: Acute laryngitis and pain TECHNIQUE: Ultrasound thyroid with castorena-scale and color Doppler analysis. COMPARISON: CT cervical spine 12/15/2022 FINDINGS: Right lobe: 4.8 x 1.2 x 1.1 cm. Left lobe: 4.2 x 1 x 1.2 cm. Nodules: None. Echotexture of the thyroid parenchyma is normal. Color Doppler analysis demonstrates normal vascularity. The isthmus is normal. No evidence of lymphadenopathy or parathyroid mass. IMPRESSION: Normal thyroid ultrasound. Dictated by Maegan Wilder MD @ 05/13/2025 1:43:54 PM (Electronically Signed)
== END 2025-05-10 11:04 | disposition home or self-care (01) ==
LOC: US 11:04
PROVIDERS: Visit Provider Otolaryngology
DX: J04.0 Acute laryngitis (principal)
CPT/HCPCS: 76536

== ENCOUNTER 2025-05-12 14:35 | Outpatient (CLI) | payer MEDICAID, SELFPAY | END 2025-05-12 14:36 | disposition home or self-care (01) | LOC: LKVREF 14:36 | DX: N61.0 Mastitis without abscess (principal); B95.4 Other streptococcus as the cause of diseases classified elsewhere; Z32.02 Encounter for pregnancy test, result negative | CPT/HCPCS: 84702; 87070 ==

== ENCOUNTER 2025-06-01 17:12 | Emergency (ER) | payer BC, SELFPAY ==
--- OUTSIDE RECORDS SUMMARY | 2025-06-01 17:15 | XMS_ITS | Clinical Summary ---
Author Organization [facility] Address [address] [place] [address] Care Team Providers Care Bioinformaticist Name Role Phone Needs Pcp, Assignment Primary Care Provider [phone] Source Comments You are receiving this document as you are listed as the primary care provider,follow-up provider, or the patient has been referred to you for consultation.This is in compliance with the Medicare andMedicaid EHR Incentive Program,which states Providers who transition their patient to another setting of careor provider of care or refers their patient to another provider of care shouldprovide summary care record for each transition of care or referral. [facility] Allergies Active Allergy Reactions Criticality Noted Date Comments Amoxicillin 09/15/2019 Latex 09/15/2019 Review Contrast Media 1997 PN: YAS CM1: CONTRAST- nka Reaction : Review Food Intolerance Other, see comments Gluten intolerance, sensitivity. Medications * This document contains information received from the source organization and may not represent a complete record from that organization. topiramate (TOPAMAX) 50 MG tabletIndications: FLAVIA FLORES SatJul 18, 2015 2:02 PM Received from: External Pharmacy Indications: PN: FLAVIA FLORES SatJul 18, 2015 2:02 PM Received from: External Pharmacy 10 06/20/20 15 Active amphetamine-dextro amphetamine (ADDERALL XR) 20 MG 24 hour release capsuleIndications :FLAVIA FLORES SatJul 18, 2015 2:02 PM Received from: External Pharmacy 10 mg. Take 1/2 tab Indications: FLAVIA FLORES SatJul 18, 2015 2:02 PM Received from: External Pharmacy 0 07/03/20 Active eletriptan (RELPAX) 20 MG tablet Take 1 Tablet (20 mg) by mouth as needed for Migraine. Take at onset of migraine. May repeat in 2 hours if needed. Max 2/day, 4 days per month. Active levothyroxine (SYNTHROID) 50 MCG tablet Take 1 Tablet (50 mcg) by mouth daily. Active Ijiqxvpdhi-ZSRU-Rw ffeine 50-300-40 MG CAPS TAKE ONE CAPSULE BY MOUTH FOUR TIMES A DAY NEEDED FOR HEADACHES/MIGRA MYRANDA 08/13/20 Active buPROPion (WELLBUTRIN XL) 300 MG 24 hour release tablet Take 1 Tablet (300 mg) by mouth daily. 05/24/20 Active lamoTRIgine (LAMICTAL) 200 MG tablet 08/13/20 Active amphetamine-dextro amphetamine (ADDERALL XR) 30 MG 24 hour release capsule Take 1 Capsule (30 mg) by mouth. 09/14/20 Active diclofenac (VOLTAREN) 75 MG enteric coated tabletIndications: Acute bilateral thoracic back pain (HRC) Take 1 Tablet (75 mg) by mouth two times a day. 30 Tablet 1 04/08/20 Active Additional Information Patient not taking.Reported on 12/31/2024 methocarbamol (ROBAXIN) 500 MG tabletIndications: Acute bilateral thoracic back pain (HRC) Take 1 Tablet (500 mg) by mouth three times a day. 30 Tablet 04/08/20 Active Additional Information Patient not taking.Reported on 12/31/2024 oxyCODONE (ROXICODONE) 5 MG immediate release tablet Take by mouth. 04/12/[address] (PROTONIX) 20 MG tablet Take 1 Tablet (20 mg) by mouth daily. 02/07/20 Active topiramate (TOPAMAX) 200 MG tablet Take 1 Tablet (200 mg) by mouth daily as needed. 02/07/20 Active traZODone (DESYREL) 50 MG tablet Take 1 Tablet (50 mg) by mouth daily at bedtime. Active ondansetron (ZOFRAN-ODT) 4 MG disintegrating tablet Take 1 Tablet (4 mg) by mouth. 03/29/20 Active VENTOLIN HFA 108 (90 Base) MCG/ACT inhaler Inhale 2 Puffs. 10/29/19 Active LORazepam (ATIVAN) 0.5 MG tablet Take 1 Tablet (0.5 mg) by mouth two times daily as needed. 12/22/19 Active omeprazole (PRILOSEC) 10 MG capsule Take 1 Capsule (10 mg) by mouth. Active predniSONE (DELTASONE) 20 MG tablet Take 2 Tablets (40 mg) by mouth daily. 11/27/19 Active fluconazole (DIFLUCAN) 150 MG tablet Take 1 Tablet (150 mg) by mouth every 72 hours. Take one today and another in 3 days 2 Tablet 01/02/20 Active Active Problems Problem Noted Date Diagnosed [...] Allergic conjunctivitis 01/19/2016 Overview (03/11/2024): Impression - [id number]: pataday ordered Migraine 01/19/2016 Overview (03/11/2024): Replax [...] Self-injurious behavior 09/27/2014 School avoidance 09/27/2014 Immunizations Immunization Administration Dates Next Due 4vHPV (Gardasil) 09/29/2014,03/23/2014 9vHPV (Gardasil 9) 03/15/2020,07/01/2017 DTaP 09/23/2002, 9,04/01/1998,1997,1997 Flu Vac (3+ yrs) 09/29/2014,11/09/2002, 2 HepA Ped/Adol (1-18 yrs) 06/01/2008,08/01/2007 HepB, Unspecified Formulation 07/01/1998, 998,1997 Hib, Unspecified Formulation 04/06/1999, 04/01/1998,01/21/1998,1997 IPV (Polio) 09/23/2002, 8,01/21/1998,1997 Influenza IIV4 (Quadrivalent ) 0.5mL (20451) 09/29/2014,08/02/2011,10/11/2010,2008,07/29/2008,08/01/2007,11/06/2006 Influenza LAIV3 2-49 years (Flumist) ,10/11/2010,05/20/2009,2007,08/01/2007,11/06/2006 [...] oz pur e alcohol) 2 q week Comments No Sex and Gender Information Value Date Recorded Sex Assigned at Not on file Legal Sex Female 5:14 AM CDT Gender Identity Not on file Sexual Orientation Not on file Occupation Industry Job Start Date Job End Date student Not on file Not on file Not on file Last Filed Vital Signs Vital Sign Reading Time Taken Comments Blood Pressure 93/66 12/31/2024 10:29 AM CDT Pulse 98 12/31/2024 10:29 AM CDT Temperature 36.6 C (97.8 F) 03/11/2024 10:29 AM CDT Respiratory Rate 16 03/11/2024 10:29 AM CDT Oxygen Saturation 100% 03/11/2024 10:29 AM CDT Inhaled Oxygen Concentration - - Weight 56.3 kg (124 lb 3.2 oz) 12/31/2024 10:29 AM CDT Height 165.1 cm (5' 5) 06/26/2023 8:49 AM CDT Body Mass Index 20.67 06/26/2023 8:49 AM CDT Plan of Treatment Health Maintenance Due Date Last Done Comments Hep C Screening (Preventive Services) 1997 HIV Screening (Preventive Services) 2013 Pneumococcal Vaccine (1 of 2 - PCV) 2016 08/20/2000 Adult Preventive Visit 07/01/2019 07/01/2017 COVID-19 Vaccine ( - season) 2024 Influenza Vaccine (#1) 2025 4, 09/29/2014, 09/29/2014, Additional history exists Cervical Cancer Screening 06/03/2026 06/03/2023, DTaP/Tdap/Td Vaccine (8 - Tdap) 03/15/2030 03/15/2020, 03/23/2014, 09/23/2002, Additional history exists Zoster/Shingles Vaccine (1 of 2) 2047 HepB Vaccine Completed 07/01/1998, 01/12, 1997 Hib Vaccine Completed 04/06/1999, 03/14, 01/21/1998, Additional history exists IPV (Polio) Vaccine Completed 09/23/2002, 04/01/1998, 04/01/1998, Additional history exists HepA Vaccine Completed 06/01/2008, 08/01/2007 Varicella Vaccine Completed 06/01/2008, 10/21/1998 HPV Vaccine Completed 03/15/2020, 06/14, 09/29/2014, Additional history exists Chlamydia Discontinued 12/31/2024, 0810/2022, 03/07/2023, Additional history exists MCV4 Vaccine Aged Out No longer eligi ble based on patient's age to complete this topic Meningococcal B Vaccine Aged Out No l onger eligible based on patient's age to complete this topic Procedures Procedure Name Priority Date/Time Associated Diagnosis Comments CHLAMYDIA & GC (14 YEARS & OLDER) Routine 12/31/2024 11:15 AM CDT Vaginal odor CYTOLOGY (PAP) Routine 06/03/2023 8:44 AM CDT Screening for malignant neoplasm of cervix from Last 3 Months or Most Recently Relevant to Health Maintenance Results * Chlamydia & GC (14 Years and Older): Vagina (12/31/2024 11:15 AM CDT) Chlamydia Trachomatis STD Not Detected Not Detected 01/01/2025 1:45 AM CDT [facility] N. gonorrhoeae STD Not Detected Not Detected 01/01/2025 1:45 AM CDT [facility] Swab STD SPECIMEN FROM VAGINA / Unknown Non-blood Collection / Unknown 12/31/2024 11:15 AM CDT 12/31/2024 12:00 PM CDT Narrative [facility] - 01/01/2025 1:45 AM CDT Test performed by Credit Support Counselor Mediated Amplification (TMA). us Mariella De Anda APRN, CHUCK TENDER LAB_1 Christelle l Result Performing Organization Address [facility]/State/[facility] Co de Phone Number [facility] [address] * PAP Test (06/03/2023 8:44 AM CDT) Case Report Pap Case: [id number] Authorizing Provider: Mariella De Anda APRN, Collected: 06/03/2023 0844 CHUCK TENDER Ordering Location: [facility] Received: 06/03/2023 0854 Obstetrics/Gynec ology First Screen: Alexia Jolly Specimen: Pap Test, Routine, Cervix/Endocervix 06/12/2023 1:12 PM CDT [facility] Pap Specimen Adequacy Satisfactory for evaluation, endocervical/salmon sformation zone component present. 06/12/2023 1:12 PM CDT [facility] Pap Interpretation (NILM) Negative for intraepithelial lesion or malignancy. 06/12/2023 1:12 PM CDT [facility] at 1312 CDT Pap Other Findings Fungal organisms morphologically consistent with Carolyne spp. 06/12/2023 1:12 PM CDT [facility] Pap Disclaimer The Pap test is a screening test to aid in the detection of cervical and vaginal cancers and their precursor lesions. It is not a diagnostic procedure and should not be used as the sole means of detecting malignancy. Both false-positive and false-negative results may occur. 06/12/2023 1:12 PM CDT [facility] Gross Description The specimen is received in SurePath fixative and properly labeled. 1 Pap-stained SurePath slide is prepared. 06/12/2023 1:12 PM CDT [facility] Embedded Images 1:12 PM CDT [facility] Other Specimen Type ENTIRE ENDOCERVIX / Unknown 06/03/2023 8:44 AM CDT 06/03/2023 8:54 AM CDT Comment:LMP: No LMP recorded . (Menstrual status: Irregular). us Mariella De Anda APRN, CNP LAB PATHOLOGY Christelle l Result [facility] [address] from Last 3 Months or Most Recently Relevant to Health Maintenance Insurance [employer] [place] PMAP ADULT DENTAL Advance Directives * Full Code (Latest Code Status on File) Date Activated Date Inactivated Comments 10/19/2014 9:37 PM 10/26/2014 4:08 PM * Full Code Date Activated Date Inactivated Comments 10/08/2014 1:32 PM 10/19/2014 9:35 PM Care Teams Bioinformaticist Relationship Specialty Start Date End [place] [address] PCP - General 05/28/24
--- OUTSIDE RECORDS SUMMARY | 2025-06-01 17:15 | XMS_ITS | Patient Health Record ---
Author Organization [facility] Address [address] [place] [address] Care Team Providers Care Firer Automatic Stoker Name Role Phone None, None Primary Care Provider ROSI Vallejo [phone] Allergies Allergen (clinical drug ingredient) Drug/Non Drug Allergy documented on EMR Reaction Allergy Type Onset Date Status amoxicillin Amoxicillin Unknown Drug Allergy Act asha Reason For Referral No Information Medications Medication SIG (Take, Route, Frequency, Duration) Notes Start Date End Date Status Narcan 4 MG/0.1ML Liquid Nasal; Duration: 30 Active Levothyroxine Sodium 50 MCG Tablet Take 1 Tablet by mouth one time a day. Oral; Duration: 90 Active traZODone HCl 50 MG Tablet Take 1 Tablet by mouth at bedtime. Oral; Duration: 90 Active buPROPion HCl ER (XL) 300 MG Tablet Extended Release 24 Hour Oral; Duration: 90 Active Xktgjovjyg-MRHF-Prrpvgxo 50-300-40 MG Capsule take 1 capsule by mouth every 6 hours as needed for migrain. Limit acetaminophen to 4000 mg per day from all sources. Oral; Duration: 8 Active Adderall XR 30 MG Capsule Extended Release 24 Hour Take 1 Capsule by mouth every morning for 30 days. Should be given by noon. Swallow whole or open,sprinkle contents on food* Oral; Duration: 30 Active Amphetamine-Dextroamphetam ine 20 MG Tablet Oral; Duration: 30 Activ e Social History Social History Alcohol Use: Social Info Question Answer Notes Recreational drugs Recreational Drug Use: No Alcohol Screen Did you have a drink containing alcohol in the past year? Yes How often did you have a drink containing alcohol in the past year? 2 to 3 times a week (3 points) How many drinks did you have on a typical day when you were drinking in the past year? 3 or 4 drinks (1 point) How often did you have 6 or more drinks on one occasion in the past year? Less than monthly (1 point) Points 5 Interpretation Positive Section Notes: Vape Problems Problem Type SNOMED Code ICD Code Onset Dates Problem Status W/U Status Risk Notes Problem Nausea (906078767) Nausea (R11.0) Active confirmed Problem Throat pain (R07.0) Active confirmed Problem Gagging (803112385) Gagging episode (R19.8) Active confirmed Plan Of Treatment No Information Insurance Providers Payer Name Payer Address Payer Phone Subscriber Number Group Number Insured Name Patient Relationship to Insured Coverage Start Date Coverage End Date [facility] [address] [place], [place] [id number] Helga Burden Self - patient is the insured Medical (General) History Surgical History Surgery Date(Month/Year) BMT placement Childhood Left ankle
--- OUTSIDE RECORDS SUMMARY | 2025-06-01 17:15 | XMS_ITS | Clinical Summary ---
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 Abnormal ECG 10/08/2014 Alcohol abuse, [...] on file Legal Sex Female 7:06 AM MUSEUM GUIDE Gender Identity Not on file Sexual Orientation Not on file Obstetrics History Last Filed Vital Signs Vital Sign Reading Time Taken Comments Blood Pressure 112/72 10/10/2015 3:34 PM MUSEUM GUIDE Pulse 66 10/10/2015 3:34 PM MUSEUM GUIDE Temperature 36.1 C (97 F) 09/06/2015 1:30 PM MUSEUM GUIDE Respiratory Rate 16 09/07/2015 6:25 PM MUSEUM GUIDE Oxygen Saturation 100% 09/06/2015 1:30 PM MUSEUM GUIDE Inhaled Oxygen Concentration - - Weight 45.3 kg (99 lb 14.4 oz) 10/10/2015 3:34 P M MUSEUM GUIDE Height 160 cm (5' 2.99) 10/10/2015 3:34 PM MUSEUM GUIDE Body Mass Index 17.7 10/10/2015 3:34 PM MUSEUM GUIDE Plan of Treatment Health Maintenance Due Date Last Done Comments Tetanus booster 2008 Depression screening for age 12+ 2009 HIV for age 15-65 2012 BMI (ht and wt on same day) for age 18+ 2015 Hepatitis C screening for age 18-79 2015 Hepatitis B series for 19+ (1 of 3 - 19+ 3-dose series ) 2016 Pneumococcal series for age 6-49 (1 of 2 - PCV) 2015 Pap test for age 21-65 2018 COVID-19 vaccine series ( - 2023- season) Influenza Vaccine (#1) 2025 Insurance [facility] [place] [id number] [id number] [place] [id number] Advance Directives * Full Code (Latest Code Status on File) Date Activated Date Inactivated Comments 09/06/2015 7:35 AM 09/06/2015 7:02 PM * Full Code Date Activated Date Inactivated Comments 07/31/2015 4:20 PM 08/01/2015 1:43 PM Care Teams Hack Driver Relationship Specialty Start Date End Date Jelena Higgins DO [address] [address] PCP - General Family Practice 03/15/23
--- OUTSIDE RECORDS SUMMARY | 2025-06-01 17:15 | XMS_ITS | Clinical Summary ---
Author Organization [facility] Address [address] [place] [address] Care Team Providers Care Insurance Executive Name Role Phone Unavailable Primary Care [...] on file Legal Sex Female 4:19 AM ADJUSTMENT EXAMINER Gender Identity Not on file Sexual Orientation Not on file Plan of Treatment Health Maintenance Due Date Last Done Comments ADVANCE CARE PLANNING 1997 ANNUAL REVIEW OF HM ORDERS 1997 YEARLY PREVENTIVE VISIT 2000 HIV SCREENING 2012 HEPATITIS C SCREENING 2015 PAP 2018 DTAP/TDAP/TD VACCINE (7 - Td or Tdap) 03/23/2024 03/23/2014, 09/23/2002, 04/06/1999, Additional history exists COVID-19 VACCINE ( season) 2024 PHQ-2 (once per calendar year) 2024 INFLUENZA VACCINE (#1) 2025 4, 09/29/2014, 08/02/2011, Additional history exists ZOSTER VACCINE (1 of 2) 2047 HEPATITIS B VACCINE Completed 07/01/1998, 01/21/1998, 1997 PNEUMOCOCCAL VACCINE: PEDIATRICS (0 to 5 YEARS) AND AT-RISK PATIENTS (6 to 49 YEARS) Aged Out 08/20/2000 No longer eligible based on patient's age to complete this topic HPV VACCINE Completed 07/01/2017, 09/13, 03/23/2014 MENINGITIS VACCINE Aged Out No longer eligible based on patient's age to complete this topic Insurance [employer]
--- OUTSIDE RECORDS SUMMARY | 2025-06-01 17:15 | XMS_ITS | Clinical Summary ---
Author Organization [facility] Address [address] [address] Phone Care Team Providers Care Equal Employment Opportunity Officer Name Role Phone Edilson Elissa M DO Primary Care Provider [phone] Allergies Active Allergy Reactions Criticality Noted Date Comments Amoxicillin Unknown 01/07/2019 Category: Allergy; Annotation - 07Jan2019: Rash Diagnostic X-Ray Materials Unknown 1997 PN: YAS CM1: CONTRAST- nka Reaction : Gluten Meal Abdominal pain Low 04/06/2022 Latex RASH Medium 07/09/2020 Milk Protein Abdominal pain Low 04/06/2022 Medications cetirizine (ZyrTEC) 10 MG tablet Take 1 tablet by mouth every day As Needed for allergy symptoms* 11/09/19 24 Active traZODone (Desyrel) 50 MG tabletIndications: Primary insomnia Take 1 Tablet by mouth at bedtime. 90 Tablet 3 12/23/19 24 Active Opvee 2.7 MG/0.1ML Solution Place 4 mg into one nostril one time for 1 dose.* 12/23/19 24 Active omeprazole (PriLOSEC) 10 MG delayed-release capsule Take 10 mg by mouth one time a day. Take before meals. Do not crush. Active Ventolin HFA 108 (90 Base) MCG/ACT inhalation aerosol inhale 2 puffs every 4-6 hours As Needed for shortness of breath or wheezing* 10/29/19 25 Active buPROPion XL (Wellbutrin XL) 300 MG 24 hour extended release tabletIndications: Attention deficit hyperactivity disorder (ADHD), combined type,Anxiety Take 1 Tablet by mouth one time a day. 90 Tablet 3 01/28/20 25 Active ondansetron (Zofran ODT) 4 MG disintegrating tabletIndications: Migraine without aura and without status migrainosus, not intractable Take 1 Tablet by mouth every eight hours as needed for Nausea. 30 Tablet 11 01/28/20 25 Active levothyroxine (Synthroid) 75 MCG tabletIndications: Hypothyroidism, unspecified type Take 1 Tablet by mouth one time a day. 90 Tablet 3 01/28/20 25 Active topiramate (Topamax) 200 MG tabletIndications: Migraine without aura and without status migrainosus, not intractable Take 1 Tablet by mouth at bedtime. Do not crush. 90 Tablet 3 01/28/20 25 Active butalbital-acetami nophen-caffeine (Fioricet) 50-300-40 MG oral capsuleIndications :Migraine without aura and without status migrainosus, not intractable Take 1 Capsule by mouth every six hours as needed for Headache. Limit acetaminophen to 4000 mg per day from all sources. 30 Capsule 03/01/20 25 Active LORazepam (Ativan) 0.5 MG tabletIndications: Anxiety Take 1 Tablet by mouth two times a day as needed for Anxiety. 10 Tablet 2 04/28/20 25 Active amphetamine-dextro amphetamine (Adderall) 20 MG tabletIndications: Attention deficit hyperactivity disorder (ADHD), combined type,Attention deficit hyperactivity disorder (ADHD), unspecified ADHD type Take 1 Tablet by mouth every morning for 30 days. To avoid insomnia, last daily dose should be taken no less than 6 hours before bed. 30 Tablet 04/28/20 25 025 Adderall XR 30 MG 24 hour capsuleIndications :Attention deficit hyperactivity disorder (ADHD), unspecified ADHD type Take 1 Capsule by mouth every morning for 30 days. Should be given by noon. Swallow whole or open,sprinkle contents on food 30 Capsule 04/28/20 25 025 Active Problems Problem Noted Date Diagnosed Date [...] . You have been in contact with [facility] by report. Assessment & Plan (11/01/2022 10:39 AM INTELLIGENCE AGENT): You are interested in pursuing a family [...] 04/06/2022 Assessment & Plan (11/01/2022 10:39 AM INTELLIGENCE AGENT): Requested labs ordered today Vapes nicotine containing substance 01/07/2022 Assessment & Plan (06/11/2023 9:16 AM CDT): Advised cessation, especially prior to Assessment & Plan (01/07/2022 1:54 PM CDT): Advised cessation. Anxiety 08/07/2021 Overview (07/21/2024): Previously on lamotrigine Assessment & Plan (01/27/2025 4:40 PM CDT): You feel anxiety is mostly managed. You had several panic attacks after dog attack. Dog is not living with you anymore. Using lorazepam for acute panic attack. Orders: buPROPion XL (Wellbutrin XL) 300 MG 24 hour extended release tablet; Take 1 Tablet by mouth one time a day. LORazepam (Ativan) 0.5 MG tablet; Take 1 Tablet by mouth two times a day as needed for Anxiety. Assessment & Plan (07/21/2024 3:03 PM CDT): [...] I reviewed your medications through an interaction glass checker. I would be cautious about buspirone due to potential interactions. I feel comfortable giving you a few tabs of lorazepam to have on hand for acute anxiety. This medication cannot be mixed with alcohol or with the narcotic. I also do not want you to use recreational marijuana. 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 Assessment & Plan (11/01/2022 10:42 AM INTELLIGENCE AGENT): I have some concern with lamotrigine use [...] provider. Previously on lamotrigine Assessment & Plan (01/27/2025 4:40 PM CDT): Continues bupropion XL Previously established with therapist Assessment & Plan (07/21/2024 3:03 PM CDT): [...] Hypothyroidism, unspecified type 05/03/2016 Assessment & Plan (01/27/2025 4:40 PM CDT): Reviewed last thyroid function testing, at goal Script renewed at same dosing. Orders: levothyroxine (Synthroid) 75 MCG tablet; Take 1 Tablet by mouth one time a day. Assessment & Plan (12/23/2023 3:29 PM CDT): [...] Urticaria, chronic 01/31/2016 Overview (08/07/2021): Impression - [id number]: willl tx with medrol dose dash to see results. Is to have an OV soon and can discuss results then. Acne vulgaris 01/19/2016 Overview (10/29/2022): Impression - [id number]: -currently taking minocycline and using finacea prn - Refill finacea foam; Impression - [id number]: off minocin to see if this is causing her hair loss; Impression - [id number]: derm to see; Impression - [id number]: will tx with topical benzyl peroxie with clind and oral minocin. FU in one month Allergic conjunctivitis 01/19/2016 Overview (08/07/2021): Impression - [id number]: pataday ordered Migraine 01/19/2016 Overview (08/10/2021): Replax caused lightheadedness Tried sumatriptan in past Assessment & Plan (01/27/2025 4:40 PM CDT): Stable with topiramate daily and as needed Fioricet. Orders: ypnbealawa-sclzezfavquev-spwzlrog (Fioricet, Esgic) 50-325-40 MG oral tablet; Take 1 Tablet by mouth every six hours as needed for Pain. Acetaminophen should be limited to 4000 mg per day. ondansetron (Zofran ODT) 4 MG disintegrating tablet; Take 1 Tablet by mouth every eight hours as needed for Nausea. topiramate (Topamax) 200 MG tablet; Take 1 Tablet by mouth at bedtime. Do not crush. Assessment & Plan (07/21/2024 3:03 PM CDT): [...] lamotrigine. Assessment & Plan (11/01/2022 10:40 AM INTELLIGENCE AGENT): Stable with topiramate daily and as needed [...] sleep Assessment & Plan (11/01/2022 10:41 AM INTELLIGENCE AGENT): Managed with trazodone for sleep Ideally, this medication would not be used in but is not contraindicated WPW (Kflvc-Ihxjtlycz-Ulpzy syndrome) 04/14/2015 ADHD 09/27/2014 Overview (10/29/2022): Previously managed by mental health provider Assessment & Plan (01/27/2025 4:40 PM CDT): You are doing well on current regimen of generic Adderall XR 30 mg in morning and short acting 20 mg later in day. You have a clear improvement on days you use it. Scripts renewed. - random UDS and stimulant agreement updated today - scripts updated for three months, may call in for an additional three months. Follow-up at least every six months for medication check. Next check can be a physical Orders: buPROPion XL (Wellbutrin XL) 300 MG 24 hour extended release tablet; Take 1 Tablet by mouth one time a day. amphetamine-dextroamphetamine XR (Adderall XR) 30 MG 24 hour capsule; Take 1 Capsule by mouth every morning for 30 days. Should be given by noon. Swallow whole or open,sprinkle contents on food amphetamine-dextroamphetamine XR (Adderall XR) 30 MG 24 hour capsule; Take 1 Capsule by mouth every morning for 30 days. Should be given by noon. Swallow whole or open,sprinkle contents on food amphetamine-dextroamphetamine XR (Adderall XR) 30 MG 24 hour capsule; Take 1 Capsule by mouth every morning for 30 days. Should be given by noon. Swallow whole or open,sprinkle contents on food amphetamine-dextroamphetamine (Adderall) 20 MG tablet; Take 1 Tablet by mouth one time a day at noon. To avoid insomnia, last daily dose should be taken no less than 6 hours before bed. amphetamine-dextroamphetamine (Adderall) 20 MG tablet; Take 1 Tablet by mouth one time a day at noon. To avoid insomnia, last daily dose should be taken no less than 6 hours before bed. amphetamine-dextroamphetamine (Adderall) 20 MG tablet; Take 1 Tablet by mouth one time a day at noon. To avoid insomnia, last daily dose should be taken no less than 6 hours before bed. Assessment & Plan (07/21/2024 3:03 PM CDT): [...] check. Assessment & Plan (11/01/2022 10:44 AM INTELLIGENCE AGENT): You are doing fair on current regimen [...] & Analgesia 2009;108:467- 75; Anesthesiol. Clin. 2016 Dec;34(1):43-58). EKG * The ACC/AHA recommends against obtaining routine EKGs in patients undergoing low risk surgeries, a class IIa recommendation (JACC. 2014;64(21);e1-76). Session ID: [id number] Endnotes and bibliography available upon request: [email or web address] Weight gain 12/23/2023 07/21/2024 Assessment & Plan [...] Encounters Date Type Department Care Team Description 04/23/2025 Refill [facility] [address] [facility] [place] [address] Elissa Waggoner, Refill Request from Last 3 Months Immunizations Immunization Administration Dates Next Due DTaP <7 years [...] Electronic Analysis Of Implantable Loop Recorder TONSILLECTOMY adnoids and sinus Medical History Medical History Date Comments COVID-19 [...] Packs/Day Years Used Date Smoking Tobacco: Never Passive Smoke Exposure: Yes Smokeless Tobacco: Never Tobacco Cessation:Counseling Given: Not Answered Alcohol Use Standard Drinks/Week Comments Yes 0 (1 standard drink = 0.6 oz pur e alcohol) PHQ-2 Answer Date Recorded PHQ-2 Total 0 01/27/2025 Education Answer Date Recorded What is the highest level of school you have completed or the highest degree you have received? Associate degree: academic program 08/10/2021 Comments No Sex and Gender Information Value Date Recorded Sex Assigned at Not on file Legal Sex Female 8:08 PM INTELLIGENCE AGENT Gender Identity Not on file Sexual Orientation [...] Sign Reading Time Taken Comments Blood Pressure 98/56 01/27/2025 3:37 PM CDT Pulse 70 01/27/2025 3:37 PM CDT Temperature 36.3 C (97.4 F) 01/27/2025 3:37 PM CDT Respiratory Rate 16 07/09/2020 7:22 AM CDT Oxygen Saturation 99% 01/27/2025 3:37 PM CDT Inhaled Oxygen Concentration - - Weight 55.3 kg (122 lb) 01/27/2025 3:37 PM CDT Height 165.1 cm (5' 5) 07/21/2024 2:38 PM CDT Body Mass Index 20.3 07/21/2024 2:38 PM CDT Plan of Treatment Health Maintenance Due Date Last Done Comments Cervical Cancer Screening 1997 Last pap w/ HPV Testing 1997 Last pap w/o HPV Testing 1997 TETANUS (Standing Order) 03/15/2030 020, 03/23/2014, 09/23/2002, Additional history exists Hepatitis B Vaccine (Standing Order) Completed 07/01/1998, 01/21/1998, 1997 Pneumococcal/PCV20 Vaccine: Pediatrics (2-5 yrs) and At-Risk Patients (6-49 yrs) (Standing Order) Aged Out 08/20/2000 No longer eligible based on patient's age to complete this topic HPV Vaccine (Standing Order) Completed 03/15/2020, 07/01/2017, 09/29/2014, Additional history exists PERTUSSIS (Standing Order) Completed 03/15, 03/23/2014, 09/23/2002, Additional history exists Insurance [employer] [facility] Member Subscriber Plan / Payer (Ef fective 2020-Present) Name:Helga Burden Relation to Subscriber:Child Name:RAJ BURDEN Date of :1968 (Home) Address: [address] [place] [address] [address] [place] [address] Payer ID:[id number] (NAIC) Type:Modbook Address: [address] [place] [address] [facility] Care Teams Equal Employment Opportunity Officer Relationship Specialty Start Date End Date Elissa Waggoner DO [address] [address] PCP - General Internal Medicine 12/18/24
--- OUTSIDE RECORDS SUMMARY | 2025-06-01 17:15 | XMS_ITS | Encounter Summary ---
Author Organization [facility] Address [address] [address] Phone Care Team Providers Care Turbo Generator Oiler Name Role Phone Elissa Waggoner DO Primary Care Provider [phone] Reason for Visit * Reason Comments Refill Request Encounter Details Date Type Department Care Team (Late st Contact Info) Description 04/23/2025 Refill [facility] INTERNAL MEDICINE [address] [place] [address] Elissa Waggoner DO [address] [place] [address] Refill Request Social History Tobacco Use Types Packs/Day Years Used Date Smoking Tobacco: Never Passive Smoke Exposure: Yes Smokeless Tobacco: Never Alcohol Use Standard Drinks/Week [...] on file 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 10 Tablet 2 04/28/2025 Adderall XR 30 MG 24 hour capsuleIndications: Attention deficit hyperactivity disorder (ADHD), unspecified ADHD type Take 1 Capsule by mouth every morning for 30 days. Should be given by noon. Swallow whole or open,sprinkle contents on food 30 Capsule 04/28/2025 5 amphetamine-dextroa mphetamine (Adderall) 20 MG tabletIndications:A ttention deficit hyperactivity disorder (ADHD), combined type,Attention deficit hyperactivity disorder (ADHD), unspecified ADHD type Take 1 Tablet by mouth every morning for 30 days. To avoid insomnia, last daily dose should be taken no less than 6 hours before bed. 30 Tablet 04/28/2025 5 documented in this encounter Miscellaneous Notes * Telephone Encounter - Kristine Pavon RN - 04/28/2025 2:41 PM CDT Requested Prescriptions Pending Prescriptions Disp Refills amphetamine-dextroamphetamine (Adderall) 20 MG tablet [Pharmacy Med Name: Amphetamine-Dextroamphetamine Oral Tablet 20 MG] 30 Tablet 0 Sig: Take 1 Tablet by mouth every morning for 30 days. To avoid insomnia, last daily dose should betaken no less than 6 hours before bed. Adderall XR 30 MG 24 hour capsule [Pharmacy Med Name: Adderall XR Oral Capsule Extended Release 24 Hour 30 MG] 30 Capsule 0 Sig: Take 1 Capsule by mouth every morning for 30 days. Should be given by noon. Swallow whole or open,sprinkle contents on food LORazepam (Ativan) 0.5 MG tablet 10 Tablet 2 Sig: Take 1 Tablet by mouth two times a day as needed for Anxiety. Pt contacted to verify if they are still taking this medication: Yes Date last seen for diagnosis: 01/27/25 Date started: 09/14/2020 Filled by: PCP Last labs: UDS 01/27/25 PDMP reviewed: Yes Why this cannot be refilled per protocol: controlled meds Routing to provider for approval/denial. * Telephone Encounter - [place] Elodia - 04/28/2025 1:10 PM CDT Patient checking status on Rx's, she also needs refill for the Lorazepam. Patient would like a callwhen Rx's have been sent, she will need Rx's before [place] Please contact patient at her mobile number when sent. Thank you documented in this encounter Plan of Treatment Not on file documented as of this encounter Visit Diagnoses Diagnosis Attention deficit hyperactivity disorder (ADHD), combined type Attention deficit hyperactivity disorder (ADHD), unspecified ADHD type Anxiety Anxiety state, unspecified documented in this encounter Discontinued Medications Medication Sig Discontinue Reason Start Date End LORazepam (Ativan) 0.5 MG tabletIndications:Anxiety Take 1 Tablet by mouth two times a day as needed for Anxiety. Reorder 01/27/2025 04/28/2025 Adderall XR 30 MG 24 hour capsuleIndications:Attent ion deficit hyperactivity disorder (ADHD), unspecified ADHD type Take 1 Capsule by mouth every morning for 30 days. Should be given by noon. Swallow whole or open,sprinkle contents on food 03/29/2025 04/28/2025 amphetamine-dextroampheta mine (Adderall) 20 MG tabletIndications:Attenti on deficit hyperactivity disorder (ADHD), combined type,Attention deficit hyperactivity disorder (ADHD), unspecified ADHD type Take 1 Tablet by mouth every morning for 30 days. To avoid insomnia, last daily dose should be taken no less than 6 hours before bed. 03/25/2025 04/28/2025 documented as of this encounter Care Teams Turbo Generator Oiler Relationship Specialty Start Date End Date Elissa Waggoner DO [address] [address] PCP - General Internal Medicine 12/18/24 documented as of this encounter
--- OUTSIDE RECORDS SUMMARY | 2025-06-01 17:15 | XMS_ITS | Encounter Summary ---
Author Organization [facility] Address [address] [address] Phone Care Team Providers Care Assistant Portfolio Manager Name Role Phone Elissa Waggoner DO Primary Care Provider [phone] Elissa Waggoner DO Primary Care Provider [phone] Elissa Waggoner DO Primary Care Provider [phone] Reason for Visit * Reason Comments Refill Request Encounter Details Date Type Department Care Team (Late st Contact Info) Description 05/14/2023 Refill [facility] INTERNAL MEDICINE [address] [place] [address] Elissa Waggoner, DO [address] [place], [place] [id number] Refill Request Social History Tobacco Use Types [...] on file 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 DOA testin10/30/22 documented in [...] documented as of this encounter Care Teams Assistant Portfolio Manager Relationship Specialty Start Date End Date Elissa Waggoner DO [address] [address] PCP - General Internal Medicine 10/29/22 05/15/23 Elissa Waggoner DO [address] [address] PCP - General Internal Medicine 06/18/24 12/17/24 Elissa Waggoner DO [address] [address] PCP - General Internal Medicine 12/18/24 documented as of this encounter
[2025-06-01 17:21] VITALS: BP 112/81; PULSE 92; RESP 16; TEMP 36.4; O2SAT 99; BMI 19.8
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
[2025-06-01] MEDS: ONDANSETRON 2 MG/ML inj 4 MG IVP (18:12)
[2025-06-01 18:14] LABS: Lactate* 1.0 mmol/L (0.5-1.9)
[2025-06-01 18:40] LABS: Hematocrit 39.8 % (33.0-51.0); Hemoglobin* 13.8 gm/dL (12.0-16.0); Immature Granulocytes Abs Auto 0.01 K/uL (0.00-0.30); Immature Granulocytes Pct Auto 0.1 %; Mean Corpuscular HGB Conc 35 gm/dL (32-36); Mean Corpuscular Hemoglobin 32 pg (26-34); Mean Corpuscular Volume 92 fL (80-100); RDW Coefficient of Variation % 13.6 % (11.5-15.5); Red Blood Count 4.34 m/uL (4.00-5.20); White Blood Count* 10.13 K/uL (4.50-11.00)
[2025-06-01 18:41] LABS: Albumin* 4.0 g/dL (3.3-5.0); Chloride* 105 mmol/L (96-114); Sodium* 136 mmol/L (135-149)
[2025-06-01 18:42] LABS: Lymphocytes Absolute Auto 1.50 K/uL (0.90-2.90); Potassium* 3.6 mmol/L (3.6-5.1); Slide Review Reflex No
[2025-06-01 18:44] LABS: Blood Urea Nitrogen* 8 mg/dL (5-24); Creatinine* 0.7 mg/dL (0.5-1.5); Est. Creatinine Clearance* 102.87; Estimated Glomerular Filt Rate 121 ml/min
[2025-06-01 18:45] LABS: Alanine Aminotransferase* 14 U/L (4-35); Alkaline Phosphatase* 50 U/L (40-150); Anion Gap 7 mEq/L (7-15); Aspartate Amino Transferase* 28 U/L (12-35); Bilirubin Direct* 0.2 mg/dL (0.0-0.5); Bilirubin Total* 0.3 mg/dL (0.1-1.5); Calcium* 9.1 mg/dL (8.4-10.6); Carbon Dioxide* 24 mmol/L (20-32); Glucose* 99 mg/dL (60-115); Total Protein* 6.5 g/dL (6.0-8.3)
[2025-06-01 19:00] LABS: HCG Qualitative Serum* Negative (Negative)
[2025-06-01 19:30] LABS: PCR FLU A Negative PCR FLU A (Negative); PCR FLU B Negative PCR FLU B (Negative); PCR RSV Negative PCR RSV (Negative); SARS PCR* Negative SARS-CoV-2 (Negative)
== END 2025-06-01 19:24 | disposition home or self-care (01) ==
PROVIDERS: Emergency Provider Family Medicine
DX: R10.9 Unspecified abdominal pain (principal)
CPT/HCPCS: 36415; 80053; 82248; 83605; 84703; 85025; 86140; 87631; 96374; 96375; 99283; 99284; J1885; J2405; J7030